=== PATIENT | female | born 1980 | race Caucasian/White ===

== ENCOUNTER → 2017-09-08 | Outpatient (CLI) | payer BC ==
--- NOTE | 2017-09-08 15:14 | NM ---
EXAMINATION TYPE: NM bone scan whole body DATE OF EXAM: 09/08/2017 COMPARISON: NONE HISTORY: Pain in Left Shoulder Delayed whole-body scanning was performed following the injection of 22.4 mCi Tc 99m MDP. Images acq uired 3 hours post injection. FINDINGS: Abnormal uptake involving the left shoulder noted. Abnormal uptake involving the knees and feet noted . IMPRESSION: Abnormal uptake involving the left shoulder could be associated with severe arthritic change. Correla te for trauma. Bone lesion also in the differential diagnosis. X-ray correlation recommended.
== END | disposition home or self-care (01) ==
LOC: RADNMMAIN 10:54
PROVIDERS: ATTEND Internal Medicine
DX: M25.512 Pain in left shoulder (principal)
CPT/HCPCS: 78306; A9503

== ENCOUNTER → 2017-10-01 | Outpatient (CLI) | payer BC ==
--- NOTE | 2017-10-01 23:13 | MR ---
EXAMINATION TYPE: MR shoulder LT wo/w con DATE OF EXAM: 10/01/2017 COMPARISON: NONE HISTORY: Shoulder pain TECHNIQUE: Multiplanar, multisequence images of the left shoulder is performed with 9 mL intravenous gadolinium contrast. FINDINGS: There is mild spurring at the AC joint. The glenohumeral joint is intact. Glenoid tavia appear intact . Subscapularis tendon is intact. Biceps tendon is intact. There is a small amount of fluid around th e biceps tendon. There is minute shoulder joint effusion. The supraspinatus tendon appears intact. Th ere is no retraction. I see no significant subacromial impingement.. IMPRESSION: No evidence of rotator cuff tear. Minute shoulder joint effusion consistent with synovitis. No fractu re. Mild osteoarthritis at the AC joint.
== END | disposition home or self-care (01) ==
LOC: RADMRIMAIN 19:57
PROVIDERS: ATTEND Family Medicine
DX: M19.012 Primary osteoarthritis, left shoulder (principal)
CPT/HCPCS: 73223; A9581

== ENCOUNTER 2018-04-15 16:07 | Emergency (ER) | payer BC ==
[2018-04-15] MEDS ORDERED: FAMOTIDINE 20 MG/2 ML VIAL IV STA (16:41)
[2018-04-15] MEDS ORDERED: diphenhydrAMINE 50 MG/ML 1 ML VIAL IVP STA (16:41)
[2018-04-15] MEDS ORDERED: methylPREDNISolone SOD SUCCI 125 MG/2 ML VIAL IV STA (16:41)
--- NOTE | 2018-04-15 16:52 | ED ---
Allergic Reaction HPI - General Chief complaint: Allergic Reaction Stated complaint: allergic rxn Time Seen by Provider: 04/15/18 16:35 Source: patient, RN notes reviewed Mode of arrival: ambulatory Limitations: no limitations - History of Present Illness Initial Comments: This is a 38-year-old female history of iodine ALLERGIES who was getting a CAT scan today and was premedicated. She had a CT with contrast or chest. She does state that she started developing itching after the contrast was given. The CAT scan was accomplished suicidal here for further evaluation. She has any difficulty breathing or trouble swallowing this severe itching MD Complaint: allergic reaction - Related Data Home Medications Medication Instructions Recorded Confirmed Albuterol Inhaler [Ventolin Hfa 1 - 2 puff INHALATION RT-BID PRN 04/15/18 Inhaler] Budesonide/Formoterol Fumarate 1 - 2 puff INHALATION RT-BID PRN 04/15/18 [Symbicort 80-4.5 Mcg Inhaler] Cholecalciferol [Vitamin D3] 1,000 unit PO DAILY 04/15/18 04/15/18 FLUoxetine HCL [PROzac] 80 mg PO DAILY 04/15/18 04/15/18 LORazepam [Ativan] 2 mg PO DAILY PRN 04/15/18 04/15/18 Letrozole 2.5 mg PO DAILY 04/15/18 04/15/18 Magnesium 200 mg PO DAILY 04/15/18 04/15/18 Methylphenidate HCl [Concerta] 27 mg PO DAILY 04/15/18 04/15/18 Norris-3 Fatty Acids/Fish Oil [Fish 1 cap PO DAILY 04/15/18 04/15/18 Oil 1,000 mg Softgel] predniSONE 50 mg PO QID 04/15/18 04/15/18 Previous Rx's Medication Instructions Recorded predniSONE 20 mg PO BID #10 tab 04/15/18 Allergies Allergy/AdvReac Type Severity Reaction Status Date / Time Iodinated Contrast- Oral and Allergy Unknown Verified 04/15/18 17:19 IV Dye Review of Systems ROS Statement: Those systems with pertinent positive or pertinent negative responses have been documented in the HPI. ROS Other: All systems not noted in ROS Statement are negative. Past Medical History Past Medical History: Cancer Additional Past Medical History / Comment(s): breast cancer History of Any Multi-Drug Resistant Organisms: None Reported Past Surgical History: Breast Surgery, Section, Hysterectomy Past Psychological History: ADD/ADHD, Anxiety, Depression Smoking Status: Never smoker Past Alcohol Use History: Occasional Past Drug Use History: None Reported General Exam - General Exam Comments Initial Comments: This is a well-developed well-nourished awake alert oriented 3 female Limitations: no limitations General appearance: alert, anxious Head exam: Present: atraumatic, normocephalic, normal inspection Eye exam: Present: normal appearance, PERRL, EOMI. Absent: scleral icterus, conjunctival injection, periorbital swelling ENT exam: Present: normal exam, mucous membranes moist Neck exam: Present: normal inspection, full ROM, other (No stridor JVD or bruits ). Absent: tenderness, meningismus, lymphadenopathy Respiratory exam: Present: normal lung sounds bilaterally. Absent: respiratory distress, wheezes, rales, rhonchi, stridor Cardiovascular Exam: Present: regular rate, normal rhythm, normal heart sounds. Absent: systolic murmur, diastolic murmur, rubs, gallop, clicks GI/Abdominal exam: Present: soft, normal bowel sounds. Absent: distended, tenderness, guarding, rebound, rigid Extremities exam: Present: normal inspection, full ROM, normal capillary refill. Absent: tenderness, pedal edema, joint swelling, calf tenderness Back exam: Present: normal inspection Neurological exam: Present: alert, oriented X3, CN II-XII intact Psychiatric exam: Present: normal affect, normal mood Skin exam: Present: warm, dry, intact, erythema (Some erythema seen to the chest wall). Absent: rash Course Vital Signs 04/15/18 16:09 Temperature 98.0 F Pulse Rate 91 Respiratory 18 Rate Blood Pressure 106/65 O2 Sat by Pulse 97 Oximetry Medical Decision Making - Medical Decision Making Patient was reevaluated on several occasions she is progressing well and feeling much improved she will be discharged Disposition Clinical Impression: Allergic reaction, Contrast reaction after premedication Disposition: HOME SELF-CARE Instructions: Urticaria (ED) Prescriptions: predniSONE 20 mg PO BID #10 tab Is patient prescribed a controlled substance at d/c from ED?: No Referrals: García Phillips MD [Primary Care Provider] - 1-2 days
[2018-04-15 18:44] VITALS: BP 125/70; PULSE 69; RESP 16; TEMP 98
== END 2018-04-15 18:43 | disposition home or self-care (01) ==
LOC: EC 16:07
DX: L29.9 Pruritus, unspecified (principal); T50.8X5A Adverse effect of diagnostic agents, initial encounter; Z85.3 Personal history of malignant neoplasm of breast; F90.9 Attention-deficit hyperactivity disorder, unspecified type; F32.9 Major depressive disorder, single episode, unspecified; F41.9 Anxiety disorder, unspecified; Z79.52 Long term (current) use of systemic steroids; Z79.899 Other long term (current) drug therapy; Z91.041 Radiographic dye allergy status
CPT/HCPCS: 96374; 96375; 99283

== ENCOUNTER → 2018-04-15 | Outpatient (CLI) | payer BC ==
--- NOTE | 2018-04-15 16:32 | CT ---
EXAMINATION TYPE: CT chest w con DATE OF EXAM: 04/15/2018 COMPARISON: None HISTORY: 38-year-old female Cough, personal history of left breast cancer TECHNIQUE: Contiguous axial scanning of the chest after the administration of 100 mL of Isovue 300. Coronal/sagittal reconstructions performed. CT DLP: 657mGycm. Automatic exposure control utilized for a dose reduction. FINDINGS: There appear to be bilateral breast reconstructions. Additional surgical clips at the left axilla fro m axillary node dissection. Heart normal size without pericardial effusion. Aorta normal caliber with conventional arch vessel branching anatomy. No thoracic lymphadenopathy. No consolidation or pleural effusion. No suspicious pulmonary nodule or mass. Small hiatal hernia. Subcentimeter hypodensity right hepatic dome too small for accurate CT character ization, most likely a cyst. Bones: No osseous destructive process. Normal variant sternal foramina. IMPRESSION: 1. Prior bilateral breast reconstructions and left axillary node dissection. 2. No acute pulmonary process. 3. Small hiatal hernia.
== END | disposition home or self-care (01) ==
LOC: RADCTMAIN 15:18
PROVIDERS: ATTEND Internal Medicine
DX: Z08 Encounter for follow-up examination after completed treatment for malignant neoplasm (principal); Z98.890 Other specified postprocedural states; Z85.3 Personal history of malignant neoplasm of breast
CPT/HCPCS: 71260; Q9967

== ENCOUNTER → 2021-04-04 | Outpatient (CLI) | payer BC ==
--- NOTE | 2021-04-05 07:41 | CT ---
EXAMINATION TYPE: CT abdomen pelvis wo con DATE OF EXAM: 04/04/2021 HISTORY: Abdominal pain, hx breast ca CT DLP: 982 mGycm. Automated Exposure Control for Dose Reduction was Utilized. TECHNIQUE: CT scan of the abdomen and pelvis is performed without oral or IV contrast. COMPARISON: NONE FINDINGS: Within the limitations of a non-contrast study, the following observations are made. LUNG BASES: No significant abnormality is appreciated. LIVER/GB: Nonspecific 3.5 x 2.7 cm hypodense lesion peripheral right hepatic lobe axial image 29 hour s follow-up.. PANCREAS: No significant abnormality is seen. SPLEEN: No significant abnormality is seen. ADRENALS: No significant abnormality is seen. KIDNEYS: There are 2 adjacent calculi in the left kidney lower pole collecting system coronal image 5 3 measuring up to 5 mm in size. Slightly prominent bilateral renal pelvises without calyceal dilatati on consistent with extrarenal pelvises. Mildly distended bladder without intraluminal calculi. BOWEL: No suspicious small or large bowel dilatation. GENITAL ORGANS: Anteverted uterus. Grouped left-sided pelvic phleboliths LYMPH NODES: No greater than 1cm abdominal or pelvic lymph nodes are appreciated. OSSEOUS STRUCTURES: No significant abnormality is seen. OTHER: Surgical clips over the rectus muscles bilaterally extending deep to the muscles noted. Findin gs are presumed product of prior "tummy tuck" procedure. Tiny fat-containing umbilical hernia. IMPRESSION: 1. There are 2 nonobstructing lower pole left renal calculi within the lower pole renal pelvis. No hy dronephrosis or obstructing ureteral calculi. 2. No acute findings are evident. 3. Nonspecific 3.5 cm peripheral right hepatic lobe lesion. Solid liver mass cannot be excluded. Furt her investigation with liver protocol contrast-enhanced CT or MRI is advised. 3.
== END | disposition home or self-care (01) ==
LOC: RADCTMAIN 17:26
PROVIDERS: ATTEND Family Medicine
DX: N20.0 Calculus of kidney (principal); K76.9 Liver disease, unspecified; Z85.3 Personal history of malignant neoplasm of breast
CPT/HCPCS: 74176

== ENCOUNTER → 2021-04-17 | Outpatient (CLI) | payer BC ==
--- NOTE | 2021-04-17 22:26 | CT ---
EXAMINATION TYPE: CT abdomen w con DATE OF EXAM: 04/17/2021 COMPARISON: 04/04/2021, CT chest 04/15/2018. INDICATION: h/o liver neoplasm DLP: 1670.7 mGycm, Automated exposure control for dose reduction was used. CONTRAST: 100 mL of Isovue 300. Study performed with Oral Contrast TECHNIQUE: Axial images were obtained from above the diaphragm to the pubic rami in the axial plane a t 5 mm thick sections. Reconstructed images are reviewed on the computer in the coronal plane. FINDINGS: Limited CT sections are obtained the lung bases. The lung bases are clear. CT ABDOMEN: Liver: There is an indistinct lesion within the lateral right lobe of the liver this is less well del ineated than on the noncontrast study. Best estimate of size is 3.1 x 2.2 cm. Previous measurement of 3.5 x 2.7 cm. On delayed images there is only a small hypodense area ill-defined remaining. Hemangio ma could be considered within the differential. Correlation with ultrasound is recommended. MRI with contrast may be more sensitive for delineation and characterization of this lesion. Previous hypodens e lesion within the more superior right lobe liver is not identified on the current exam Spleen: Normal Pancreas: Normal Adrenal glands: The adrenal glands are normal. Gallbladder: Normal Kidneys: No masses are evident. No hydronephrosis is present. No cysts are present. There is a non obstructing renal stone within the mid to inferior pole left kidney measuring 0.4 cm. Delayed images to the kidneys were obtained. No additional findings. Aorta: Normal Inferior vena cava: Normal. Bowel: Loops of bowel with oral contrast. Unremarkable. Debris is within the stomach. IMPRESSIONS: 1. Ill-defined hepatic lesion within the mid right lobe liver periphery is less evident on contrast imaging and becomes more homogenous with the liver with delayed contrast. Hemangioma is within the di fferential. Correlation with ultrasound is recommended. MRI with contrast may be required for better delineation.
== END | disposition home or self-care (01) ==
LOC: RADCTMAIN 17:43
PROVIDERS: ATTEND Internal Medicine Medical Oncology
DX: K76.9 Liver disease, unspecified (principal); Z85.05 Personal history of malignant neoplasm of liver
CPT/HCPCS: 74160; Q9967

== ENCOUNTER → 2021-04-20 | Outpatient (CLI) | payer BC ==
--- NOTE | 2021-04-20 16:07 | US ---
EXAMINATION TYPE: US liver DATE OF EXAM: 04/20/2021 COMPARISON: CT 2020 CLINICAL HISTORY: D18.02 Hemangioma. Liver lesion seen on recent CT EXAM MEASUREMENTS: Liver Length: 15.4 cm Gallbladder Wall: 0.2 cm CBD: 0.3 cm Right Kidney: 10.5 x 4.6 x 4.2 cm Pancreas: visualized portion wnl, limited by overlying midline bowel gas Liver: 3.2 x 2.7 x 3.8cm hypoechoic area right lobe. This area corresponds to the CT findings findin gs are atypical for a hemangioma. Other etiologies should be considered. Gallbladder: wnl Evidence for sonographic Clement's sign: no CBD: wnl Right Kidney: wnl IMPRESSION: 1. Slightly irregular slightly hypoechoic mass within the right lobe liver. Additional workup is kat mmended. Findings are atypical for hemangioma, other etiologies including neoplasm should be consider ed
== END | disposition home or self-care (01) ==
LOC: RADUSWWP 14:57
PROVIDERS: ATTEND Internal Medicine Medical Oncology
DX: R16.0 Hepatomegaly, not elsewhere classified (principal); D18.03 Hemangioma of intra-abdominal structures
CPT/HCPCS: 76705

== ENCOUNTER → 2022-10-08 | Outpatient (CLI) | payer BC ==
--- NOTE | 2022-10-08 13:12 | US ---
EXAMINATION TYPE: US venous doppler duplex LE LT DATE OF EXAM: 10/08/2022 1:05 PM COMPARISON: NONE CLINICAL HISTORY: LLE M79.662. Hx DVT right leg. Patient is on chemotherapy. Stage 4 breast cancer. P ain left calf x 4 days. SIDE PERFORMED: Left TECHNIQUE: The lower extremity deep venous system is examined utilizing real time linear array sonog marii with graded compression, doppler sonography and color-flow sonography. VESSELS IMAGED: Common Femoral Vein Deep Femoral Vein Greater Saphenous Vein * Femoral Vein Popliteal Vein Small Saphenous Vein * Proximal Calf Veins (* superficial vessels) Left Leg: Internal echoes seen in noncompressible superficial vessels within the posterior upper-m id calf at patient's area of pain/concern. Lack of color flow within these vessels. No evidence of DVT. IMPRESSION: 1. No ultrasound evidence of deep venous thrombosis left lower extremity. 2. Note is made of superficial venous thrombosis within the upper calf.
== END | disposition home or self-care (01) ==
LOC: RADUSWWP 12:14
PROVIDERS: ATTEND Family Medicine
DX: C50.912 Malignant neoplasm of unspecified site of left female breast (principal); I82.812 Embolism and thrombosis of superficial veins of left lower extremity

== ENCOUNTER 2023-09-07 14:15 | Inpatient (IN) | payer BC ==
--- NOTE | 2023-09-07 15:50 | ED ---
General Adult HPI - General Chief complaint: Fever Stated complaint: fever/rash-cancer pt Time Seen by Provider: 09/07/23 15:11 Source: patient, RN notes reviewed Mode of arrival: ambulatory Limitations: no limitations - History of Present Illness Initial comments: 43-year-old female presents to the emergency department for evaluation of fever today. She states that she took her temperature and it was 100.3. She also notes a painful rash to her left cheek. She states that this started today as well. She has a history of breast cancer and is receiving chemotherapy. Last chemo on . She follows at [facility]. No other significant past medical history. - Related Data Home Medications Medication Instructions Recorded Confirmed Apixaban [Eliquis] 5 mg PO BID 09/07/23 09/07/23 Dicyclomine [Bentyl] 20 mg PO Q8H PRN 09/07/23 09/07/23 FLUoxetine HCL [Fluoxetine HCl] 60 mg PO HS 09/07/23 09/07/23 HYDROmorphone [Dilaudid] 4 mg PO Q4H 09/07/23 09/07/23 LORazepam [Ativan] 0.5 mg PO TID 09/07/23 09/07/23 OLANZapine [ZyPREXA] 5 mg PO HS 09/07/23 09/07/23 Ondansetron Odt [Zofran Odt] 8 mg PO Q6H PRN 09/07/23 09/07/23 Temazepam 22.5 mg PO HS 09/07/23 09/07/23 fentaNYL 25MCG/HR PATCH [Duragesic 1 patch TRANSDERM Q72H 09/07/23 09/07/23 25MCG/HR] Allergies Allergy/AdvReac Type Severity Reaction Status Date / Time alpelisib [From Piqray] Allergy Rash/Hives Verified 09/07/23 19:51 Iodinated Contrast Media Allergy Unknown Verified 09/07/23 19:51 [Iodinated Contrast- Oral and IV Dye] Review of Systems ROS Statement: Those systems with pertinent positive or pertinent negative responses have been documented in the HPI. ROS Other: All systems not noted in ROS Statement are negative. Past Medical History Past Medical History: Cancer Additional Past Medical History / Comment(s): breast cancer History of Any Multi-Drug Resistant Organisms: None Reported Past Surgical History: Breast Surgery, Section, Hysterectomy Past Psychological History: ADD/ADHD, Anxiety, Depression Smoking Status: Never smoker Past Alcohol Use History: Occasional Past Drug Use History: None Reported General Exam Limitations: no limitations General appearance: alert, in no apparent distress Head exam: Present: atraumatic, normocephalic, normal inspection Eye exam: Present: normal appearance, PERRL, EOMI. Absent: scleral icterus, conjunctival injection, periorbital swelling ENT exam: Present: normal exam, mucous membranes moist, TM's normal bilaterally, normal external ear exam Neck exam: Present: normal inspection. Absent: tenderness, meningismus, lymphadenopathy Respiratory exam: Present: normal lung sounds bilaterally. Absent: respiratory distress, wheezes, rales, rhonchi, stridor Cardiovascular Exam: Present: regular rate, normal rhythm, normal heart sounds. Absent: systolic murmur, diastolic murmur, rubs, gallop, clicks Extremities exam: Present: normal inspection, full ROM, normal capillary refill. Absent: tenderness, pedal edema, joint swelling, calf tenderness Neurological exam: Present: alert, oriented X3 Psychiatric exam: Present: normal affect, normal mood Skin exam: Present: warm, dry, intact, erythema (Erythema to left cheek with tenderness) Course Vital Signs 09/07/23 09/07/23 09/07/23 14:29 16:57 18:17 Temperature 98.9 F 99.2 F 98.7 F Pulse Rate 91 89 87 Pulse Rate [ Left] Respiratory 20 18 18 Rate Blood Pressure 112/66 108/71 117/78 Blood Pressure [Left Arm] O2 Sat by Pulse 95 100 99 Oximetry 09/08/23 02:00 Temperature 98.2 F Pulse Rate Pulse Rate [ 69 Left] Respiratory 18 Rate Blood Pressure Blood Pressure 114/65 [Left Arm] O2 Sat by Pulse 98 Oximetry Medical Decision Making - Medical Decision Making Was pt. sent in by a medical professional or institution (, PA, STAMPER BLOCKER, urgent care, hospital, or snf...) When possible be specific @ -No Did you speak to anyone other than the patient for history (EMS, parent, family, police, friend...)? What history was obtained from this source @ -No Did you review nursing and triage notes (agree or disagree)? Why? @ -I reviewed and agree with nursing and triage notes Were old charts reviewed (outside hosp., previous admission, EMS record, old EKG, old radiological studies, urgent care reports/EKG's, snf records)? Report findings @ -No old charts were reviewed Differential Diagnosis (chest pain, altered mental status, abdominal pain women, abdominal pain men, vaginal bleeding, weakness, fever, dyspnea, syncope, headache, dizziness, GI bleed, back pain, seizure, CVA, palpatations, mental health, musculoskeletal)? @ -Differential Fever: Pneumonia, viral URI, endocarditis, myocarditis, pericarditis, otitis, sinusitis, peritonsillar Abscess, retropharyngeal Abscess, epiglottitis, peritonitis, appendicitis, Celeste cystitis, diverticulitis, hepatitis, colitis, UTI, PID, TOA, pyelonephritis, prostatitis, epididymitis, meningitis, encephalit is, pulmonary embolism, CVA, thyroid storm, pancreatitis, adrenal crisis, cavernous sinus thrombosis, this is not meant to be an all-inclusive list. EKG interpreted by me (3pts min.). @ -None X-rays interpreted by me (1pt min.). @ -None done CT interpreted by me (1pt min.). @ -None done U/S interpreted by me (1pt. min.). @ -None done What testing was considered but not performed or refused? (CT, X-rays, U/S, labs)? Why? @ -None What meds were considered but not given or refused? Why? @ -None Did you discuss the management of the patient with other professionals (professionals i.e. , PA, STAMPER BLOCKER, lab, RT, psych nurse, social director, director clinical operations, teacher, prison officer, foster care case manager)? Give summary @ -Case discussed with Dr. Keys who is accepting of the admission. Was smoking cessation discussed for >3mins.? @ -No Was critical care preformed (if so, how long)? @ -No Were there social determinants of health that impacted care today? How? (Homelessness, low income, unemployed, alcoholism, drug addiction, transportation, low edu. Level, literacy, decrease access to med. care, [facility], r ehab)? @ -No Was there de-escalation of care discussed even if they declined (Discuss DNR or withdrawal of care, Hospice)? DNR status @ -No What co-morbidities impacted this encounter? (DM, HTN, Smoking, COPD, CAD, Cancer, CVA, ARF, Chemo, Hep., AIDS, mental health diagnosis, sleep apnea, morbid obesity)? @ -None Was patient admitted / discharged? Hospital course, mention meds given and route, prescriptions, significant lab abnormalities, going to OR and other pertinent info. @ -Admitted for observation. Patient presented to the emergency department for evaluation of fever and left-sided face erythema and tenderness. The symptoms started today. She is currently undergoing chemo for metastatic breast cancer. Laboratory studies including blood cultures which are pending. CBC shows mild leukocytosis of 13.1. Transaminitis which the patient states is chronic. UA shows negative nitrate, negative leukocyte esterase. COVID, influenza, RSV negative. Patient will be treated with IV vancomycin and cefepime for possible cellulitis of the face. Patient will be admitted for observation and IV antibiotics. Case was discussed with Dr. Keys who is accepting of the admission. Case discussed with my attending, Dr. Mckenna Undiagnosed new problem with uncertain prognosis? @ -No Drug Therapy requiring intensive monitoring for toxicity (Heparin, Nitro, Insulin, Cardizem)? @ -No Were any procedures done? @ -No Diagnosis/symptom? @ -Cellulitis Acute, or Chronic, or Acute on Chronic? @ -Acute Uncomplicated (without systemic symptoms) or Complicated (systemic symptoms)? @ -Uncomplicated Side effects of treatment? @ -No Exacerbation, Progression, or Severe Exacerbation? @ -No Poses a threat to life or bodily function? How? (Chest pain, [place], [place], pneumonia, PE, COPD, DKA, ARF, appy, cholecystitis, CVA, Diverticulitis, Homicidal, Suicidal, threat to staff... and all critical care pts) @ -No - Lab Data Result diagrams: 09/07/23 15:56 09/08/23 06:46 Lab Results 09/07/23 09/07/23 09/07/23 Range/Units 15:56 15:56 15:56 WBC 13.1 H (3.8-10.6) k/uL RBC 4.07 (3.80-5.40) m/uL Hgb 12.1 (11.4-16.0) gm/dL Hct 38.0 (34.0-46.0) % MCV 93.3 (80.0-100.0) fL MCH 29.8 (25.0-35.0) pg MCHC 32.0 (31.0-37.0) g/dL RDW 14.8 (11.5-15.5) % Plt Count 206 (150-450) k/uL MPV 7.2 Neutrophils % 93 % Lymphocytes % 6 % Monocytes % 1 % Eosinophils % 0 % Basophils % 0 % Neutrophils # 12.1 H (1.3-7.7) k/uL Lymphocytes # 0.7 L (1.0-4.8) k/uL Monocytes # 0.2 (0-1.0) k/uL Eosinophils # 0.0 (0-0.7) k/uL Basophils # 0.0 (0-0.2) k/uL Hypochromasia Slight Sodium 136 L (137-145) mmol/L Potassium 4.9 (3.5-5.1) mmol/L Chloride 105 (98-107) mmol/L Carbon Dioxide 25 (22-30) mmol/L Anion Gap 6 mmol/L BUN 14 (7-17) mg/dL Creatinine 0.54 (0.52-1.04) mg/dL Est GFR (CKD-EPI)AfAm >90 (>60 ml/min/1.73 sqM) Est GFR (CKD-EPI)NonAf >90 (>60 ml/min/1.73 sqM) Glucose 113 H (74-99) mg/dL Plasma Lactic Acid Cecilio (0.7-2.0) mmol/L Calcium 8.6 (8.4-10.2) mg/dL Total Bilirubin 0.8 (0.2-1.3) mg/dL AST 186 H (14-36) U/L ALT 111 H (4-34) U/L Alkaline Phosphatase 138 H (38-126) U/L Total Protein 6.0 L (6.3-8.2) g/dL Albumin 3.9 (3.5-5.0) g/dL Urine Color Colorless Urine Appearance Clear (Clear) Urine pH 8.0 (5.0-8.0) Ur Specific Fallon 1.008 (1.001-1.035) Urine Protein Negative (Negative) Urine Glucose (UA) Negative (Negative) Urine Ketones Negative (Negative) Urine Blood Negative (Negative) Urine Nitrite Negative (Negative) Urine Bilirubin Negative (Negative) Urine Urobilinogen <2.0 (<2.0) mg/dL Ur Leukocyte Esterase Negative (Negative) Influenza Type A (PCR) (Not Detectd) Influenza Type B (PCR) (Not Detectd) RSV (PCR) (Not Detectd) SARS-CoV-2 (PCR) (Not Detectd) 09/07/23 09/07/23 Range/Units 15:56 15:56 WBC (3.8-10.6) k/uL RBC (3.80-5.40) m/uL Hgb (11.4-16.0) gm/dL Hct (34.0-46.0) % MCV (80.0-100.0) fL MCH (25.0-35.0) pg MCHC (31.0-37.0) g/dL RDW (11.5-15.5) % Plt Count (150-450) k/uL MPV Neutrophils % % Lymphocytes % % Monocytes % % Eosinophils % % Basophils % % Neutrophils # (1.3-7.7) k/uL Lymphocytes # (1.0-4.8) k/uL Monocytes # (0-1.0) k/uL Eosinophils # (0-0.7) k/uL Basophils # (0-0.2) k/uL Hypochromasia Sodium (137-145) mmol/L Potassium (3.5-5.1) mmol/L Chloride (98-107) mmol/L Carbon Dioxide (22-30) mmol/L Anion Gap mmol/L BUN (7-17) mg/dL Creatinine (0.52-1.04) mg/dL Est GFR (CKD-EPI)AfAm (>60 ml/min/1.73 sqM) Est GFR (CKD-EPI)NonAf (>60 ml/min/1.73 sqM) Glucose (74-99) mg/dL Plasma Lactic Acid Cecilio 1.3 (0.7-2.0) mmol/L Calcium (8.4-10.2) mg/dL Total Bilirubin (0.2-1.3) mg/dL AST (14-36) U/L ALT (4-34) U/L Alkaline Phosphatase (38-126) U/L Total Protein (6.3-8.2) g/dL Albumin (3.5-5.0) g/dL Urine Color Urine Appearance (Clear) Urine pH (5.0-8.0) Ur Specific Fallon (1.001-1.035) Urine Protein (Negative) Urine Glucose (UA) (Negative) Urine Ketones (Negative) Urine Blood (Negative) Urine Nitrite (Negative) Urine Bilirubin (Negative) Urine Urobilinogen (<2.0) mg/dL Ur Leukocyte Esterase (Negative) Influenza Type A (PCR) Not Detected (Not Detectd) Influenza Type B (PCR) Not Detected (Not Detectd) RSV (PCR) Not Detected (Not Detectd) SARS-CoV-2 (PCR) Not Detected (Not Detectd) Disposition Clinical Impression: Cellulitis, Fever Disposition: ADMITTED IP TO THIS [facility] Condition: Stable Is patient prescribed a controlled substance at d/c from ED?: No
[2023-09-07 16:18] LABS: Basophils % (A) 0 %; Eosinophils % (A) 0 %; HGB 12.1 gm/dL (11.4-16.0); Hypochromasia Slight; Lymphocytes # (A) 0.7 k/uL (1.0-4.8); Lymphocytes % (A) 6 %; MCH 29.8 pg (25.0-35.0); MCV 93.3 fL (80.0-100.0); Mean Platelet Volume 7.2; Monocytes # (A) 0.2 k/uL (0-1.0); Monocytes % (A) 1 %; Neutrophils # (A) 12.1 k/uL (1.3-7.7); Neutrophils % (A) 93 %; Platelet Count 206 k/uL (150-450); RBC 4.07 m/uL (3.80-5.40); RDW 14.8 % (11.5-15.5); WBC 13.1 k/uL (3.8-10.6)
[2023-09-07 16:28] LABS: ALT 111 U/L (4-34); AST 186 U/L (14-36); African American GFR (CKD) >90 (>60 ml/min/1.73 sqM); Albumin 3.9 g/dL (3.5-5.0); Alkaline Phosphatase 138 U/L (38-126); Anion Gap 6 mmol/L; Blood Urea Nitrogen 14 mg/dL (7-17); Calcium 8.6 mg/dL (8.4-10.2); Carbon Dioxide 25 mmol/L (22-30); Chloride 105 mmol/L (98-107); Glucose 113 mg/dL (74-99); Non-African American GFR(CKD) >90 (>60 ml/min/1.73 sqM); Potassium 4.9 mmol/L (3.5-5.1); Sodium 136 mmol/L (137-145); Total Bilirubin 0.8 mg/dL (0.2-1.3)
--- NOTE | 2023-09-07 16:57 | XR ---
EXAMINATION TYPE: XR chest 2V DATE OF EXAM: 09/07/2023 3:58 PM CLINICAL INDICATION:Female, 43 years old with history of fever; PHH COMPARISON: None TECHNIQUE: XR chest 2V Frontal and lateral views of the chest. FINDINGS: Lungs/Pleura: There is no evidence of pleural effusion, focal consolidation, or pneumothorax. Pulmonary vascularity: Unremarkable. Heart/mediastinum: Cardiomediastinal silhouette is unremarkable. Musculoskeletal: No acute osseous pathology. Other findings: None Lines/Tubes: [id number] projecting over the right hemithorax with distal tip projecting over the superior vena cava. IMPRESSION: No acute cardiopulmonary disease/process.
[2023-09-07 17:55] LABS: Appearance,Urine Clear (Clear); Bilirubin,Urine Negative (Negative); Blood,Urine Negative (Negative); Color,Urine Colorless; Glucose,Urine (UA) Negative (Negative); Ketones,Urine Negative (Negative); Leukocyte Esterase,Urine Negative (Negative); Nitrite,Urine Negative (Negative); Protein,Urine Negative (Negative); Specific Gravity,Urine 1.008 (1.001-1.035); Urobilinogen,Urine <2.0 mg/dL (<2.0)
[2023-09-07] MEDS ORDERED: VANCOMYCIN IV PER PHARMACY 1 EACH MISC MISCELLANE PRN (18:07)
[2023-09-07] MEDS: CEFEPIME 1 GM in SODIUM CHLORIDE 0.9% 50 ML IVPB STA (18:33)
[2023-09-07] MEDS ORDERED: VANCOMYCIN 1,500 MG in SODIUM CHLORIDE 0.9% 500 ML 500 ML IVPB SCH (18:34)
[2023-09-07] MEDS: SODIUM CHLORIDE 0.9% 1,000 ML IV SCH (18:38)
[2023-09-07] MEDS: VANCOMYCIN 1,500 MG in SODIUM CHLORIDE 0.9% 500 ML 500 ML IVPB SCH ×2 (19:09→19:18)
[2023-09-07] MEDS ORDERED: NALOXONE 0.4 MG/ML 1 ML VIAL IV PRN (19:41)
[2023-09-07] MEDS ORDERED: IBUPROFEN 400 MG TAB PO PRN (19:46)
[2023-09-08] MEDS: diphenhydrAMINE 50 MG/ML 1 ML VIAL IVP STA (01:58)
--- NOTE | 2023-09-08 02:37 | P.HPIM ---
History of Present Illness H&P Date: 09/07/23 Chief Complaint: Fever 43-year-old female with metastatic breast cancer She is coming in for evaluation of the fever today she reports that her temperature was 100.3 she also reports having a painful rash that started yesterday over her left side of the face she is not sure what caused it or trigger it. Denies any injuries or traumas to the face. She denies experiencing anything like this before she denies any coughing chest pain trouble breathing denies any runny nose or sore throat denies any abdominal pain nausea or vomiting denies any changes in her bowel movements or urinary habits She was diagnosed with metastatic breast cancer about 2 years ago she continues to be on chemotherapy her last session was few days ago review of systems Pertinent positives as noted in HPI. All other systems were reviewed and are negative on exam Constitutional: No acute distress, conversant Eyes: Anicteric sclerae, moist conjunctiva, Pupils equal round reactive to light ENMT: NC/AT Oropharynx clear, no erythema, or exudates Neck: Supple, no masses, or JVD No carotid bruits No thyromegaly Lungs: Clear to auscultation Clear to percussion Normal respiratory effort, no accessory muscle use Cardiovascular: Heart regular in rate and rhythm, No murmurs, gallops, or rubs No peripheral edema Abdominal: Soft Nontender, no guarding, rebound or rigidity Abdomen moving with respiration Normoactive bowel sounds Skin: Erythema involving the left side of the face over the sabianist zygomatic arch and left cheek warm to the touch and tender, no induration no drainage no open wounds Extremities: No digital cyanosis No clubbing Pedal pulses intact and symmetrical Radial pulses intact and symmetrical No calf tenderness Psychiatric: Alert and oriented to person, place and time Appropriate affect fair judgement Neuro Muscles Strength 5/5 in all 4 extremities Sensation to light touch grossly present throughout Cranial nerves II-XII grossly intact Past Medical History Past Medical History: Cancer Additional Past Medical History / Comment(s): breast cancer History of Any Multi-Drug Resistant Organisms: None Reported Past Surgical History: Breast Surgery, Section, Hysterectomy Additional Past Surgical History / Comment(s): double mastectomy Past Psychological History: ADD/ADHD, Anxiety, Depression Smoking Status: Never smoker Past Alcohol Use History: Occasional Past Drug Use History: None Reported Medications and Allergies Home Medications Medication Instructions Recorded Confirmed Type Apixaban [Eliquis] 5 mg PO BID 09/07/23 09/07/23 History Dicyclomine [Bentyl] 20 mg PO Q8H PRN 09/07/23 09/07/23 History FLUoxetine HCL [Fluoxetine HCl] 60 mg PO HS 09/07/23 09/07/23 History HYDROmorphone [Dilaudid] 4 mg PO Q4H 09/07/23 09/07/23 History LORazepam [Ativan] 0.5 mg PO TID 09/07/23 09/07/23 History OLANZapine [ZyPREXA] 5 mg PO HS 09/07/23 09/07/23 History Ondansetron Odt [Zofran Odt] 8 mg PO Q6H PRN 09/07/23 09/07/23 History Temazepam 22.5 mg PO HS 09/07/23 09/07/23 History fentaNYL 25MCG/HR PATCH [Duragesic 1 patch TRANSDERM Q72H 09/07/23 09/07/23 History 25MCG/HR] Allergies Allergy/AdvReac Type Severity Reaction Status Date / Time alpelisib [From Piqray] Allergy Rash/Hives Verified 09/07/23 19:51 Iodinated Contrast Media Allergy Unknown Verified 09/07/23 19:51 [Iodinated Contrast- Oral and IV Dye] Physical Exam Vitals: Vital Signs Temp Pulse Pulse Resp BP BP Pulse Ox 09/08/23 02:00 98.2 F 69 18 114/65 98 09/07/23 18:17 98.7 F 87 18 117/78 99 09/07/23 16:57 99.2 F 89 18 108/71 100 09/07/23 14:29 98.9 F 91 20 112/66 95 Intake and Output 09/07/23 09/07/23 09/08/23 14:59 22:59 06:59 Other: Weight 97.522 kg 97.522 kg Results CBC & Chem 7: 09/07/23 15:56 09/07/23 15:56 Labs: Abnormal Lab Results - Last 24 Hours (Table) 09/07/23 09/07/23 Range/Units 15:56 15:56 WBC 13.1 H (3.8-10.6) k/uL Neutrophils # 12.1 H (1.3-7.7) k/uL Lymphocytes # 0.7 L (1.0-4.8) k/uL Sodium 136 L (137-145) mmol/L Glucose 113 H (74-99) mg/dL AST 186 H (14-36) U/L ALT 111 H (4-34) U/L Alkaline Phosphatase 138 H (38-126) U/L Total Protein 6.0 L (6.3-8.2) g/dL Assessment and Plan Assessment: 43-year-old female with metastatic breast cancer currently on chemotherapy coming in for 1 to 2-day history of a fever and left-sided face rash I discussed case with ED doctor accepted the admission for suspected erysipelas of the left side of the face with anticipated length of stay less than 2 midnights Sepsis with suspected underlying left-sided facial erysipelas (white count 13.1, tachycardia) Follow-up cultures Patient started on vancomycin dosing by pharmacy Cefepime 2 g IV piggyback every 8 hours Tylenol as needed for fever Continue with home medications pain control with Dilaudid 4 mg pills p.o. as needed Acute respiratory viral panel negative for COVID RSV and influenza Metastatic breast cancer currently on chemotherapy Continue outpatient follow-up Blood work showing Hemoglobin 12.1 patient denies any bleeding Sodium 136 potassium 4.9 BUN 14 creatinine 0.5 Transaminitis Patient reports chronic elevated liver enzymes due to metastasis AST 182 ALT 111 Alk phos 138 Full code DVT prophylaxis on Eliquis for history of DVT
[2023-09-08] MEDS: HYDROmorphone 2 MG TAB PO SCH (02:44)
[2023-09-08] MEDS: APIXABAN 5 MG TAB PO SCH (02:44)
[2023-09-08] MEDS: LORazepam 0.5 MG TAB PO PRN (02:44)
[2023-09-08] MEDS: FLUoxetine HCL 20 MG CAP PO SCH (02:44)
[2023-09-08] MEDS: TEMAZEPAM 7.5 MG CAP PO SCH (02:44)
[2023-09-08 08:51] LABS: African American GFR (CKD) >90 (>60 ml/min/1.73 sqM); Non-African American GFR(CKD) >90 (>60 ml/min/1.73 sqM)
[2023-09-08] MEDS: CEFEPIME 1 GM in SODIUM CHLORIDE 0.9% 50 ML IVPB SCH (09:10)
[2023-09-08] MEDS: VANCOMYCIN 1,500 MG in SODIUM CHLORIDE 0.9% 500 ML 500 ML IVPB SCH (11:55)
[2023-09-08] MEDS: ACETAMINOPHEN TAB 325 MG TAB PO PRN (15:32)
--- NOTE | 2023-09-08 15:50 | P.PN ---
Subjective Progress Note Date: 09/08/23 Hospital course: Patient is a very pleasant 43-year-old female with a past medical history of metastatic breast cancer currently undergoing chemotherapy with last treatment being 09/04/2023. She presented to the emergency department with a chief complaint of fever of 100.3 F and painful rash to the left side of her face. She underwent full evaluation in the emergency department. Upon arrival vital signs show blood pressure 112/66, heart rate 91, respiratory rate 20, temp 98.9 F, SpO2 of 95% on room air. Labs completed and reviewed. CBC showing leukocytosis with WBC count of 13.1. BMP unremarkable. Lactic acid normal findings at 1.3. Liver profile showing transaminitis with AST of 186, ALT of 111, and alkaline phosphatase of 138. Urinalysis negative for infection. Influenza A, influenza B, RSV, and COVID PCR were negative. Chest x-ray completed negative for acute cardiopulmonary process. Patient admitted under our services with consultation to oncology and infectious disease. Physical exam: Patient seen and fully evaluated at bedside this morning. She was resting comfortably. Reports continued irritation to left side of face from rash, otherwise denies any complaints at this time. Vital signs reviewed and stable. General: Nontoxic, no distress and appears stated age. Derm: Skin warm and dry, normal coloration for ethnicity. Moderately erythemic rash involving the left side of the face over the gnosticism zygomatic arch and entire left cheek warm to the touch and tender, no induration, no drainage, and no open wounds Head: Atraumatic, normocephalic and symmetric. Eyes: EOMs intact, no lid lag, and anicteric sclera Mouth: no lip lesions, mucus membranes moist Cardiovascular: regular rate and rhythm with normal S1S2, no murmur, positive posterior tibial pulses bilaterally, and cap refill < 2 seconds. Right-sided [id number]. Lungs: Respirations even, regular, and unlabored on room air. Lungs CTA bilaterally, no rhonchi, no rales, no wheezing, and no accessory muscle usage. Abdominal: soft, nontender to palpation, no guarding, no appreciable organomegaly Ext: ROM intact. No gross muscle atrophy, no edema, no contractures Neuro: Speech clear, face symmetrical and CN II-XII grossly intact with no noted focal neuro deficits Psych: Alert and oriented to person, place, time, and situation. Appropriate and pleasant affect. Assessment and Plan of Care: 43-year-old female with metastatic breast cancer currently on chemotherapy coming in for 1 to 2-day history of a fever and left-sided face rash. Sepsis with suspected underlying left-sided facial erysipelas (white count 13.1, heart rate 91, blood pressure 99/60 and fever reported prior to arrival of 100.3 F) -Follow-up on blood cultures. -Continue IV antibiotics with vancomycin 1500 mg every 8 hours and cefepime 2 g IVPB every 8 hours. Monitor renal function and vancomycin trough closely for any signs of vancomycin associated renal toxicity. -Continue Tylenol 650 mg every 6 hours as needed for fever, temperature high over the past 24 hours is 99.2 F. -Continue with home medications pain control with Dilaudid 4 mg pills p.o. as needed -Infectious disease consulted. Metastatic breast cancer currently on chemotherapy -Oncology consulted. Appreciate recommendations. Transaminitis, likely secondary to metastasis -Patient reports chronic elevated liver enzymes due to metastasis -Liver profile revealing AST 182, ALT 111, and alkaline phosphatase of 138. Data and imaging reviewed: Vital signs reviewed. Blood pressure 99/60, heart rate 85, respiratory rate 16, temp 98.4 F, and SpO2 of 94% on room air. Labs reviewed. CBC showing leukocytosis with WBC count of 13.1. BMP normal findings. Lactic acid 1.3. Liver profile revealing AST 182, ALT 111, and alkaline phosphatase of 138. CODE STATUS: Full code DVT prophylaxis: Eliquis Anticipated discharge date: Clinical course to determine Anticipated discharge place: Clinical course to determine Patient was seen independently by Nurse Pracitioner. This document was prepared using [employer] dictation software. Please allow for errors in medical delivery driver, while rare they do occur. This patient was seen independently by my colleague Karthikeyan MOSCOSO. I agree with the assessment and plan. Objective - Vital Signs Vital signs: Vital Signs Temp 98.4 F 09/08/23 08:00 Pulse 85 09/08/23 08:00 Resp 16 09/08/23 08:00 BP 99/60 09/08/23 08:00 Pulse Ox 94 L 09/08/23 08:00 FiO2 Intake & Output 09/07/23 09/08/23 09/08/23 18:59 06:59 18:59 Weight 97.522 kg 97.522 kg Other: Voiding Method Toilet # Voids 1 - Labs CBC & Chem 7: 09/09/23 05:39 09/09/23 05:39 Labs: Abnormal Lab Results - Last 24 Hours (Table) 09/07/23 09/07/23 09/08/23 Range/Units 15:56 15:56 06:46 WBC 13.1 H (3.8-10.6) k/uL Neutrophils # 12.1 H (1.3-7.7) k/uL Lymphocytes # 0.7 L (1.0-4.8) k/uL Sodium 136 L (137-145) mmol/L Creatinine 0.48 L (0.52-1.04) mg/dL Glucose 113 H (74-99) mg/dL AST 186 H (14-36) U/L ALT 111 H (4-34) U/L Alkaline Phosphatase 138 H (38-126) U/L Total Protein 6.0 L (6.3-8.2) g/dL
--- NOTE | 2023-09-08 18:02 | P.CONS ---
History of Present Illness - Reason for Consult Consult date: 09/08/23 on treatment for breast cancer, facial rash Requesting physician: Juan Diego Napier - Chief Complaint fever, face rash - History of Present Illness Mrs. Maurer is a pleasant 43-year-old female from [facility] in [place], currently on treatment with Trodelvy for metastatic triple negative breast cancer. She has been on since April, and been doing fairly well, she has not required any doses to be held, she does receive G-CSF on day 9. She states that she woke up with pain in her face, she reports that the left side of her face "hurts", and describes it as "burning". She feels that it is spreading to the right side of her neck. She denies rash anywhere else. She has not had a fever since her admission. She denies recent illnesses, vision changes, itching, nausea, vomiting, oral irritation, ear pain, sore throat, cough, shortness of breath, chest pain, abdominal pain or distention, acute changes in bowel or bladder habits. Chest x-ray was negative. She has been started on antibiotics for concerns for cellulitis. CBC and CMP nothing terribly remarkable other than elevated LFTs that are about 3-4 times the upper limit of normal. Patient has no other symptoms to report. Review of Systems 14 point ROS is neg except as stated in HPI Past Medical History Past Medical History: Cancer Additional Past Medical History / Comment(s): breast cancer History of Any Multi-Drug Resistant Organisms: None Reported Past Surgical History: Breast Surgery, Section, Hysterectomy Additional Past Surgical History / Comment(s): double mastectomy Past Psychological History: ADD/ADHD, Anxiety, Depression Smoking Status: Never smoker Past Alcohol Use History: Occasional Past Drug Use History: None Reported Medications and Allergies Home Medications Medication Instructions Recorded Confirmed Type Apixaban [Eliquis] 5 mg PO BID 09/07/23 09/07/23 History Dicyclomine [Bentyl] 20 mg PO Q8H PRN 09/07/23 09/07/23 History FLUoxetine HCL [Fluoxetine HCl] 60 mg PO HS 09/07/23 09/07/23 History HYDROmorphone [Dilaudid] 4 mg PO Q4H 09/07/23 09/07/23 History LORazepam [Ativan] 0.5 mg PO TID 09/07/23 09/07/23 History OLANZapine [ZyPREXA] 5 mg PO HS 09/07/23 09/07/23 History Ondansetron Odt [Zofran Odt] 8 mg PO Q6H PRN 09/07/23 09/07/23 History Temazepam 22.5 mg PO HS 09/07/23 09/07/23 History fentaNYL 25MCG/HR PATCH [Duragesic 1 patch TRANSDERM Q72H 09/07/23 09/07/23 History 25MCG/HR] Allergies Allergy/AdvReac Type Severity Reaction Status Date / Time alpelisib [From Piqray] Allergy Rash/Hives Verified 09/07/23 19:51 Iodinated Contrast Media Allergy Unknown Verified 09/07/23 19:51 [Iodinated Contrast- Oral and IV Dye] Physical Exam Vitals: Vital Signs Temp Pulse Pulse Resp BP BP Pulse Ox 09/08/23 13:45 97.9 F 85 16 99/63 94 L 09/08/23 08:00 98.4 F 85 16 99/60 94 L 09/08/23 02:00 98.2 F 69 18 114/65 98 09/07/23 18:17 98.7 F 87 18 117/78 99 Intake and Output 09/08/23 09/08/23 09/08/23 06:59 14:59 22:59 Other: Voiding Method Toilet Toilet # Voids 1 Weight 97.522 kg - Constitutional General appearance: average body habitus, cooperative, no acute distress - EENT Eyes: anicteric sclerae, EOMI ENT: hearing grossly normal, normal oropharynx - Neck Neck: no lymphadenopathy - Respiratory Respiratory: bilateral: CTA - Cardiovascular Rhythm: regular Heart sounds: normal: S1, S2 Abnormal Heart Sounds: no systolic murmur, no diastolic murmur, no rub, no S3 Gallop, no S4 Gallop, no click, no other leg Peripheral Edema: bilateral: None - Gastrointestinal General gastrointestinal: normal bowel sounds, soft - Integumentary left facial rash, red no pustules or drainage, some redness to the right neck - Neurologic Neurologic: CNII-XII intact - Musculoskeletal Musculoskeletal: strength equal bilaterally - Psychiatric Psychiatric: A&O x's 3, appropriate affect, intact judgment & insight Results CBC & Chem 7: 09/07/23 15:56 09/08/23 06:46 Labs: Abnormal Lab Results - Last 24 Hours (Table) 09/08/23 Range/Units 06:46 Creatinine 0.48 L (0.52-1.04) mg/dL Chest x-ray: report reviewed Assessment and Plan (1) Metastatic adenocarcinoma to breast Current Visit: Yes Status: Acute Code(s): C79.81 - SECONDARY MALIGNANT NEOPLASM OF BREAST SNOMED Code(s): 284707364464538 (2) Cellulitis Current Visit: Yes Status: Acute Code(s): L03.90 - CELLULITIS, UNSPECIFIED SNOMED Code(s): 971884773 (3) Fever Current Visit: Yes Status: Acute Code(s): R50.9 - FEVER, UNSPECIFIED SNOMED Code(s): 360276557 Plan: Metastatic triple negative breast cancer -Patient reports most recently she has been on Trodelvy, since April, been going well, no need for hold. -Trodelvy regimen is days 1 and 8 every 21 days. Patient has had day one of this cycle, day 8 is due this week along with G-CSF. This will be on hold until patient's origin of facial rash has been determined and has been treated adequately. She will return to her Oncologist at [facility] for assessment prior to resuming. -Elevated LFTs can be seen in Trodelvy. Typically if they remain less than 3-4 times the upper limit of normal treatment can continue. Will see how her LFTs change while inpatient. Facial rash -Not a typical side effect with Trodelvy -Infectious diseases consulted. Patient is on antibiotics. -Continue to monitor patient very closely and see how she progresses. Doctor attests: I performed a history and physical examination of this patient, developed impression and plan of care. Discussed with dictator. I agree with dictators note, documented as a scribe.
--- NOTE | 2023-09-09 08:12 | P.CONS ---
History of Present Illness - Reason for Consult Consult date: 09/08/23 Fever undergoing chemo for metastatic breast cancer Requesting physician: Juan Diego Napier - Chief Complaint Fever and left-sided facial swelling redness x 1 day - History of Present Illness Patient is a 43-year-old with a past medical history significant for breast cancer currently on chemotherapy also with a history of anxiety depression ADHD presenting to the hospital for evaluation of fever the day of presentation to the hospital patient did have temperature 100.3 degrees Fahrenheit and the patient also developed erythema to her left cheek area patient denies any histo ry of any trauma has been complaining of pain which is mostly dull aching to sharp mild to moderate intensity without any radiation patient currently do not have any blisters or open wound and no drainage with the symptoms the patient was evaluated on presentation to the hospital patient did have low-grade fever of 99.2 F patient was not tachycardic hypotensive or hypoxic and no need for supplemental oxygen did have a white count of 13.1 with a left shift creatinine was 0.54 urine was negative influenza RSV COVID testing was negative blood cultures which are currently pending chest x-ray no acute cardiopulmonary disease process patient was started on vancomycin and cefepime infectious disea se was consulted for further management of antibiotic therapy Review of Systems Positive point and negatives has been mentioned in the HPI, complete review of systems was performed and all other systems are negative Past Medical History Past Medical History: Cancer Additional Past Medical History / Comment(s): breast cancer History of Any Multi-Drug Resistant Organisms: None Reported Past Surgical History: Breast Surgery, Section, Hysterectomy Additional Past Surgical History / Comment(s): double mastectomy Past Psychological History: ADD/ADHD, Anxiety, Depression Smoking Status: Never smoker Past Alcohol Use History: Occasional Past Drug Use History: None Reported Medications and Allergies Home Medications Medication Instructions Recorded Confirmed Type Apixaban [Eliquis] 5 mg PO BID 09/07/23 09/07/23 History Dicyclomine [Bentyl] 20 mg PO Q8H PRN 09/07/23 09/07/23 History FLUoxetine HCL [Sarafem] 60 mg PO HS 09/07/23 09/07/23 History HYDROmorphone [Dilaudid] 4 mg PO Q4H 09/07/23 09/07/23 History LORazepam [Ativan] 0.5 mg PO TID 09/07/23 09/07/23 History OLANZapine [ZyPREXA] 5 mg PO HS 09/07/23 09/07/23 History Ondansetron Odt [Zofran ODT] 8 mg PO Q6H PRN 09/07/23 09/07/23 History Temazepam 22.5 mg PO HS 09/07/23 09/07/23 History fentaNYL 25MCG/HR PATCH [Duragesic 1 patch TRANSDERM Q72H 09/07/23 09/07/23 History 25MCG/HR] Cephalexin [Keflex] 500 mg PO Q6HR 7 Days #28 cap 09/10/23 Rx Hydrocortisone Cream 1 applic TOPICAL TID 7 Days #1 09/10/23 Rx [Hydrocortisone 1% Cream] cream Allergies Allergy/AdvReac Type Severity Reaction Status Date / Time alpelisib [From [facility]] Allergy Rash/Hives Verified 09/07/23 19:51 Iodinated Contrast Media Allergy Unknown Verified 09/07/23 19:51 [Iodinated Contrast- Oral and IV Dye] Physical Exam Vitals: Vital Signs Temp Pulse Resp BP BP Pulse Ox 09/09/23 02:35 113/77 09/09/23 02:00 98.4 F 84 16 91/60 97 09/08/23 20:00 98.1 F 80 16 96/62 94 L 09/08/23 13:45 97.9 F 85 16 99/63 94 L Intake and Output 09/08/23 09/09/23 09/09/23 22:59 06:59 14:59 Intake Total 1180 Balance 1180 Intake: Intake, IV Titration 600 Amount Cefepime 1 gm In Sodium 100 Chloride 0.9% 50 ml @ 100 mls/hr IVPB Q8HR [facility] Rx# :[id number] Vancomycin 1,500 mg In 500 Sodium Chloride 0.9% 500 ml 500 ml @ 167 mls/hr IVPB Q8H [facility] Rx#: [id number] Oral 580 Other: Voiding Method Toilet # Voids 2 3 GENERAL DESCRIPTION: Middle-aged male lying in bed, no distress. No tachypnea or accessory muscle of respiration use. HEENT: Shows Pallor , no scleral icterus. Oral mucous membrane is dry. No pharyngeal erythema or thrush NECK: Trachea central, no thyromegaly. LUNGS: Unlabored breathing. Clear to auscultation anteriorly. No wheeze or crackle. HEART: S1, S2, regular rate and rhythm. No loud murmur ABDOMEN: Soft, no tenderness , guarding or rigidity, no organomegaly EXTREMITIES: No edema of feet. SKIN: Patient did have left-sided facial erythema no blister no drainage NEUROLOGICAL: The patient is awake, alert, oriented x3, mood and affect normal. Results CBC & Chem 7: 09/09/23 05:39 09/09/23 05:39 Labs: Abnormal Lab Results - Last 24 Hours (Table) 09/08/23 Range/Units 06:46 Creatinine 0.48 L (0.52-1.04) mg/dL Microbiology - Last 24 Hours (Table) 09/07/23 15:40 Blood Culture - Preliminary Blood 09/07/23 16:09 Blood Culture - Preliminary Blood Assessment and Plan (1) Leukocytosis Status: Acute Code(s): D72.829 - ELEVATED WHITE BLOOD CELL COUNT, UNSPECIFIED SNOMED Code(s): 643356042 (2) Facial cellulitis Status: Acute Code(s): L03.211 - CELLULITIS OF FACE SNOMED Code(s): 7841784 02 (3) Fever Status: Acute Code(s): R50.9 - FEVER, UNSPECIFIED SNOMED Code(s): 966306149 Plan: 1patient presented to hospital with fever and this patient who did have evid ence of left facial cellulitis with diffuse swelling and redness more likely streptococcal disease underlying resistant gram-negative or gram-positive, because of history of breast cancer on chemotherapy being immunocompromised 2-megha the area of the redness 3-patient to continue the vancomycin and cefepime while waiting for the culture to finalize We will follow on clinical condition and cultures to further adjust medication if needed Thank you for this consultation we will follow the patient along with you Dictation was produced using [employer] dictation software. please excuse any grammatical, word or spelling errors. Time with Patient: Greater than 30
[2023-09-09] MEDS ORDERED: HYDROCORTISONE 1% CREAM 30 GM TUBE TOPICAL PRN (08:43)
[2023-09-09 08:50] LABS: HCT 33.2 % (37.2-46.3); HGB 10.4 g/dL (12.0-15.0); MCH 28.9 pg (27.0-32.0); MCHC 31.3 g/dL (32.0-37.0); MCV 92.2 FL (80.0-97.0); Mean Platelet Volume 9.8 FL (9.5-12.2); NRBC Per 100 WBC 0 X 10*3/uL (0.00-0.01); Platelet Count 224 X 10*3/uL (140-440); RDW 14.1 % (11.5-14.5); WBC 5.23 X 10*3/uL (4.50-10.00)
[2023-09-09 08:52] LABS: ALT 52 U/L (8-44); AST 27 U/L (13-35); Albumin 3.4 g/dL (3.8-4.9); Albumin/Globulin Ratio 1.89 Ratio (1.60-3.17); Alkaline Phosphatase 115 U/L (41-126); Blood Urea Nitrogen 11.6 mg/dL (9.0-27.0); Calcium 8.4 mg/dL (8.7-10.3); Carbon Dioxide 21.1 mmol/L (21.6-31.8); Chloride 109 mmol/L (96-109); Globulin 1.8 g/dL (1.6-3.3); Glucose 101 mg/dL (70-110); Magnesium 2.1 mg/dL (1.5-2.4); Potassium 4.4 mmol/L (3.5-5.5); Sodium 139 mmol/L (135-145); Total Bilirubin 0.3 mg/dL (0.3-1.2); Total Protein 5.2 g/dL (6.2-8.2)
[2023-09-09] MEDS: HYDROCORTISONE 1% CREAM 30 GM TUBE TOPICAL SCH (10:23)
[2023-09-09] MEDS: VANCOMYCIN TROUGH DUE 1 EACH MISC MISCELLANE ONE (10:49)
--- NOTE | 2023-09-09 12:32 | P.PN ---
Subjective Progress Note Date: 09/09/23 Principal diagnosis: Reason for follow-up is left facial cellulitis Patient is a 43-year-old with a past medical history significant for breast cancer currently on chemotherapy also with a history of anxiety depression ADHD presenting to the hospital for evaluation of fever, patient also noticed to have cellulitis to the left side of the face. On today's evaluation that is 09/09/2023, the patient did have resolution of her fever and is afebrile today, the patient left-sided facial swelling and redness Weakness, patient is on room air and breathing comfortably, The patient denies having any chest pain or cough, the patient denies having any abdominal pain no vomiting or any diarrhea has been reported by the nursing staff. Patient white count is 25.23, creatinine 0.5 blood cultures are pending Objective - Vital Signs Vital signs: Vital Signs Temp 97.6 F 09/09/23 07:52 Pulse 76 09/09/23 07:52 Resp 11 L 09/09/23 07:52 BP 106/70 09/09/23 07:52 Pulse Ox 97 09/09/23 07:52 FiO2 Intake & Output 09/08/23 09/09/23 09/09/23 18:59 06:59 18:59 Intake Total 1180 Balance 1180 Intake: Intake, IV Titration 600 Amount Cefepime 1 gm In Sodium 100 Chloride 0.9% 50 ml @ 100 mls/hr IVPB Q8HR [facility] Rx# :[id number] Vancomycin 1,500 mg In 500 Sodium Chloride 0.9% 500 ml 500 ml @ 167 mls/hr IVPB Q8H [facility] Rx#: [id number] Oral 580 Other: Voiding Method Toilet Toilet Toilet # Voids 2 3 - Exam GENERAL DESCRIPTION: Middle-aged female lying in bed in no distress HEENT: Left-sided facial redness slightly decreased RESPIRATORY SYSTEM: Unlabored breathing , decreased breath sounds at bases HEART: S1 S2 regular rate and rhythm , ABDOMEN: Soft , no tenderness EXTREMITIES: No edema feet - Labs CBC & Chem 7: 09/09/23 05:39 09/09/23 05:39 Labs: Abnormal Lab Results - Last 24 Hours (Table) 09/09/23 09/09/23 Range/Units 05:39 05:39 RBC 3.60 L (4.10-5.20) X 10*6/uL Hgb 10.4 L (12.0-15.0) g/dL Hct 33.2 L (37.2-46.3) % MCHC 31.3 L (32.0-37.0) g/dL Carbon Dioxide 21.1 L (21.6-31.8) mmol/L Creatinine 0.5 L (0.6-1.5) mg/dL BUN/Creatinine Ratio 23.20 H (12.00-20.00) Ratio Calcium 8.4 L (8.7-10.3) mg/dL ALT 52 H (8-44) U/L Total Protein 5.2 L (6.2-8.2) g/dL Albumin 3.4 L (3.8-4.9) g/dL Microbiology - Last 24 Hours (Table) 09/07/23 15:40 Blood Culture - Preliminary Blood 09/07/23 16:09 Blood Culture - Preliminary Blood Assessment and Plan (1) Facial cellulitis Current Visit: Yes Status: Acute Code(s): L03.211 - CELLULITIS OF FACE SNOMED Code(s): 446613756 Plan: 1patient presented to hospital with fever and this patient who did have evidence of left facial cellulitis with diffuse swelling and redness more likely streptococcal disease underlying resistant gram-negative or gram-positive vaginal dryness only because of history of breast cancer on chemotherapy being immunocompromised 2-we will discontinue vancomycin and cefepime, start the patient on cefazolin if continue to improve and culture negative will be able to finish therapy with oral Keflex Question concern answered Dictation was produced using [employer] dictation software. please excuse any grammatical, word or spelling errors. Time with Patient: Less than 30
--- NOTE | 2023-09-09 13:37 | P.PN ---
Subjective Progress Note Date: 09/09/23 Principal diagnosis: facial cellulitis. On treatment for met breast cancer In f/u today pt reports face pain/burning has resolved, swelling is better. No fevers, tolerating oral intake Objective - Vital Signs Vital signs: Vital Signs Temp 98.4 F 09/09/23 11:45 Pulse 78 09/09/23 11:45 Resp 12 09/09/23 11:45 BP 101/61 09/09/23 11:45 Pulse Ox 96 09/09/23 11:45 FiO2 Intake & Output 09/08/23 09/09/23 09/09/23 18:59 06:59 18:59 Intake Total 1180 Balance 1180 Intake: Intake, IV Titration 600 Amount Cefepime 1 gm In Sodium 100 Chloride 0.9% 50 ml @ 100 mls/hr IVPB Q8HR [facility] Rx# :[id number] Vancomycin 1,500 mg In 500 Sodium Chloride 0.9% 500 ml 500 ml @ 167 mls/hr IVPB Q8H [facility] Rx#: [id number] Oral 580 Other: Voiding Method Toilet Toilet Toilet # Voids 2 3 - Constitutional General appearance: Present: cooperative, no acute distress, obese - EENT Eyes: Present: anicteric sclerae, EOMI ENT: Present: hearing grossly normal - Respiratory Details: resp even and unlabored - Peripheral edema leg Peripheral Edema: bilateral: None - Integumentary Integumentary Comment(s): left side of face is less red, swollen, side of area affected looks smaller. No drainage or open sores noted - Neurologic Neurologic: Present: CNII-XII intact - Musculoskeletal Musculoskeletal: Present: strength equal bilaterally - Psychiatric Psychiatric: Present: A&O x's 3, appropriate affect, intact judgment & insight - Labs CBC & Chem 7: 09/09/23 05:39 09/09/23 05:39 Labs: Abnormal Lab Results - Last 24 Hours (Table) 09/09/23 09/09/23 Range/Units 05:39 05:39 RBC 3.60 L (4.10-5.20) X 10*6/uL Hgb 10.4 L (12.0-15.0) g/dL Hct 33.2 L (37.2-46.3) % MCHC 31.3 L (32.0-37.0) g/dL Carbon Dioxide 21.1 L (21.6-31.8) mmol/L Creatinine 0.5 L (0.6-1.5) mg/dL BUN/Creatinine Ratio 23.20 H (12.00-20.00) Ratio Calcium 8.4 L (8.7-10.3) mg/dL ALT 52 H (8-44) U/L Total Protein 5.2 L (6.2-8.2) g/dL Albumin 3.4 L (3.8-4.9) g/dL Microbiology - Last 24 Hours (Table) 09/07/23 15:40 Blood Culture - Preliminary Blood 09/07/23 16:09 Blood Culture - Preliminary Blood Assessment and Plan (1) Metastatic adenocarcinoma to breast Current Visit: Yes Status: Acute Code(s): C79.81 - SECONDARY MALIGNANT NEOPLASM OF BREAST SNOMED Code(s): 476549222325785 (2) Cellulitis Current Visit: Yes Status: Acute Code(s): L03.90 - CELLULITIS, UNSPECIFIED SNOMED Code(s): 439323166 (3) Fever Current Visit: Yes Status: Acute Code(s): R50.9 - FEVER, UNSPECIFIED SNOMED Code(s): 489425893 Plan: Metastatic triple negative breast cancer -Patient reports most recently she has been on Trodelvy, since April, been going well, no need for hold. -Trodelvy regimen is days 1 and 8 every 21 days. Patient has had day one of this cycle, day 8 is due this week along with G-CSF. She will f/u with her Oncologist at [facility] for assessment prior to resuming treatment -Elevated LFTs are WNL today. CMP will cont to be monitored while pt on treatment Facial rash -Not a typical side effect with Trodelvy -Much improved in 1 day with abx -Infectious diseases has seen pt. Awaiting their recommendations for antibiotic and duration Pt is ok from Hem/Onc standpoint to be discha-rged once cleared by Attending and consulting MDs Doctor attests: I performed a history and physical examination of this patient, developed impression and plan of care. Discussed with dictator. I agree with dictators note, documented as a scribe.
[2023-09-09] MEDS: ONDANSETRON 4 MG/2 ML VIAL IVP PRN (16:59)
--- NOTE | 2023-09-09 17:04 | P.PN ---
Subjective Progress Note Date: 09/09/23 Hospital course: Patient is a very pleasant 43-year-old female with a past medical history of metastatic breast cancer currently undergoing chemotherapy with last treatment being 09/04/2023. She presented to the emergency department with a chief complaint of fever of 100.3 F and painful rash to the left side of her face. She underwent full evaluation in the emergency department. Upon arrival vital signs show blood pressure 112/66, heart rate 91, respiratory rate 20, temp 98.9 F, SpO2 of 95% on room air. Labs completed and reviewed. CBC showing leukocytosis with WBC count of 13.1. BMP unremarkable. Lactic acid normal findings at 1.3. Liver profile showing transaminitis with AST of 186, ALT of 111, and alkaline phosphatase of 138. Urinalysis negative for infection. Influenza A, influenza B, RSV, and COVID PCR were negative. Chest x-ray completed negative for acute cardiopulmonary process. Patient admitted under our services with consultation to oncology and infectious disease. Physical exam: Patient seen and fully evaluated at bedside this morning. She was resting comfortably. Reports continued irritation to left side of face from rash, otherwise denies any complaints at this time. Vital signs reviewed and stable. General: Nontoxic, no distress and appears stated age. Derm: Skin warm and dry, normal coloration for ethnicity. Moderately erythemic rash involving the left side of the face over the evangelical zygomatic arch and entire left cheek warm to the touch and tender, no induration, no drainage, and no open wounds Head: Atraumatic, normocephalic and symmetric. Eyes: EOMs intact, no lid lag, and anicteric sclera Mouth: no lip lesions, mucus membranes moist Cardiovascular: regular rate and rhythm with normal S1S2, no murmur, positive posterior tibial pulses bilaterally, and cap refill < 2 seconds. Right-sided [id number]. Lungs: Respirations even, regular, and unlabored on room air. Lungs CTA bilaterally, no rhonchi, no rales, no wheezing, and no accessory muscle usage. Abdominal: soft, nontender to palpation, no guarding, no appreciable organomegaly Ext: ROM intact. No gross muscle atrophy, no edema, no contractures Neuro: Speech clear, face symmetrical and CN II-XII grossly intact with no noted focal neuro deficits Psych: Alert and oriented to person, place, time, and situation. Appropriate and pleasant affect. Assessment and Plan of Care: 43-year-old female with metastatic breast cancer currently on chemotherapy coming in for 1 to 2-day history of a fever and left-sided face rash. Sepsis with suspected underlying left-sided facial erysipelas (white count 13.1, heart rate 91, blood pressure 99/60 and fever reported prior to arrival of 100.3 F) -Follow-up on blood cultures. -Continue IV antibiotics with vancomycin 1500 mg every 8 hours and cefepime 2 g IVPB every 8 hours. Monitor renal function and vancomycin trough closely for any signs of vancomycin associated renal toxicity. -Continue Tylenol 650 mg every 6 hours as needed for fever, temperature high over the past 24 hours is 99.2 F. -Continue with home medications pain control with Dilaudid 4 mg pills p.o. as needed -Infectious disease consulted. Metastatic breast cancer currently on chemotherapy -Oncology consulted. Appreciate recommendations. Transaminitis, likely secondary to metastasis -Patient reports chronic elevated liver enzymes due to metastasis -Liver profile revealing AST 182, ALT 111, and alkaline phosphatase of 138. Data and imaging reviewed: Vital signs reviewed. Blood pressure 99/60, heart rate 85, respiratory rate 16, temp 98.4 F, and SpO2 of 94% on room air. Labs reviewed. CBC showing mild normocytic anemia with hemoglobin of 10.4 and resolution of leukocytosis with WBC count of 5.23. BMP unremarkable.. Liver profile revealing improvement in transaminitis with AST of 27, ALT of 52, and alkaline phosphatase of 115. CODE STATUS: Full code DVT prophylaxis: Eliquis Anticipated discharge date: Clinical course to determine Anticipated discharge place: Clinical course to determine Patient was seen independently by Nurse Pracitioner. This document was prepared using [employer] dictation software. Please allow for errors in director of workforce development, while rare they do occur. Juan Diego Napier NP rendered care for this patient independently, reviewed the findings and plan as documented in the note above. I did not physically speak with or examine the patient on this date. Objective - Vital Signs Vital signs: Vital Signs Temp 97.6 F 09/09/23 07:52 Pulse 76 09/09/23 07:52 Resp 11 L 09/09/23 07:52 BP 106/70 09/09/23 07:52 Pulse Ox 97 09/09/23 07:52 FiO2 Intake & Output 09/08/23 09/09/23 09/09/23 18:59 06:59 18:59 Intake Total 1180 Balance 1180 Intake: Intake, IV Titration 600 Amount Cefepime 1 gm In Sodium 100 Chloride 0.9% 50 ml @ 100 mls/hr IVPB Q8HR [facility] Rx# :[id number] Vancomycin 1,500 mg In 500 Sodium Chloride 0.9% 500 ml 500 ml @ 167 mls/hr IVPB Q8H [facility] Rx#: [id number] Oral 580 Other: Voiding Method Toilet Toilet Toilet # Voids 2 3 - Labs CBC & Chem 7: 09/09/23 05:39 09/09/23 05:39 Labs: Abnormal Lab Results - Last 24 Hours (Table) 09/08/23 Range/Units 06:46 Creatinine 0.48 L (0.52-1.04) mg/dL Microbiology - Last 24 Hours (Table) 09/07/23 15:40 Blood Culture - Preliminary Blood 09/07/23 16:09 Blood Culture - Preliminary Blood
[2023-09-09] MEDS ORDERED: VANCOMYCIN 1,500 MG in SODIUM CHLORIDE 0.9% 500 ML 500 ML IVPB SCH (23:00)
[2023-09-10 09:31] VITALS: PULSE 75; RESP 15; TEMP 97.8
[2023-09-10 11:36] VITALS: BP 116/75
--- NOTE | 2023-09-10 16:45 | P.DS ---
Providers Date of admission: 09/07/23 19:40 Expected date of discharge: 09/10/23 Attending physician: Rosio Keys MD Consults: 09/08/23 08:56 Consult Physician Routine Consulting Provider: Susan Brower Consult Reason/Comments: metastatic breast cancer undergoing chemo, presenting w/ fever and rash Do you want consulting provider notified?: Yes 09/08/23 15:28 Consult Physician Routine Consulting Provider: Lauri Soto Consult Reason/Comments: fever undergoing chemo for metastatic Breast CA, facial rash/erysipelas Do you want consulting provider notified?: Yes Primary care physician: [facility] Course: Discharge Diagnosis: Sepsis with suspected underlying left-sided facial erysipelas (initial white count 13.1, heart rate 91, blood pressure 99/60 and fever reported prior to arrival of 100.3 F). Patient admitted under our services with consultation to oncology and infectious disease. She was placed on broad-spectrum IV antibiotics with vancomycin and cefepime. Preliminary blood cultures showing no growth and antibiotics de-escalated down to Rocephin with hydrocortisone cream. Patient had no further episodes of elevated temps and facial erysipelas/cellulitis significantly improved. Patient was cleared by hematology/oncology for discharge stating patient may resume scheduled chemotherapeutic treatment tomorrow. Blood cultures showing no growth to date x 48 hours, infectious disease clearing patient from their standpoint recommending discharge home on Keflex 500 mg every 6 hours x 7 days. Leukocytosis resolved with initial WBC count of 13.1 decreasing to 5.23. Prescription sent for hydrocortisone cream and Keflex. Metastatic breast cancer currently on chemotherapy. Oncology evaluated, clearing patient from their perspective to resume scheduled chemotherapeutic treatment tomorrow. Transaminitis, likely secondary to metastasis. Patient reported chronic elevated liver enzymes due to metastasis, however transaminitis significantly improving with initial AST of 186, ALT 111, and alkaline phosphatase of 138 decreasing to AST of 27, ALT of 52, and alkaline phosphatase of 115. Hospital Course: Patient is a very pleasant 43-year-old female with a past medical history of metastatic breast cancer currently undergoing chemotherapy with last treatment being 09/04/2023. She presented to the emergency department with a chief complaint of fever of 100.3 F and painful rash to the left side of her face. She underwent full evaluation in the emergency department. Upon arrival vital signs show blood pressure 112/66, heart rate 91, respiratory rate 20, temp 98.9 F, SpO2 of 95% on room air. Labs completed and reviewed. CBC showing leukocytosis with WBC count of 13.1. BMP unremarkable. Lactic acid normal findings at 1.3. Liver profile showing transaminitis with AST of 186, ALT of 111, and alkaline phosphatase of 138. Urinalysis negative for infection. Influenza A, influenza B, RSV, and COVID PCR were negative. Chest x-ray completed negative for acute cardiopulmonary process. Patient admitted under our services with consultation to oncology and infectious disease. She was placed on broad-spectrum IV antibiotics with vancomycin and cefepime. Preliminary blood cultures showing no growth and antibiotics de-escalated down to Rocephin with hydrocortisone cream. Patient had no further episodes of elevated temps and facial erysipelas/cellulitis significantly improved. Patient was cleared by hematology/oncology for discharge stating patient may resume scheduled chemotherapeutic treatment tomorrow. Blood cultures showing no growth to date x 48 hours, infectious disease clearing patient from their standpoint recommending discharge home on Keflex 500 mg every 6 hours x 7 days. Medically, patient is stable for discharge at this time vital signs as follows blood pressure 109/70, heart rate 75, respiratory rate 15, temp 97.8 F, and SpO2 of 97% on room air. Leukocytosis resolved with initial WBC count of 13.1 decreasing to 5.23. Prescription sent for hydrocortisone cream and Keflex. Patient to follow-up outpatient with PCP in 1 to 2 days and was cleared by heme- onc to resume scheduled chemotherapeutic treatments tomorrow. Physical exam: Vital signs reviewed and stable. General: Nontoxic, no distress and appears stated age. Derm: Skin warm and dry, normal coloration for ethnicity. Mild rash involving the left side of the face over the baptism zygomatic arch and left cheek showing significant improvement. Appears to be drying out with significant improvement in redness. Head: Atraumatic, normocephalic and symmetric. Eyes: EOMs intact, no lid lag, and anicteric sclera Mouth: no lip lesions, mucus membranes moist Cardiovascular: regular rate and rhythm with normal S1S2, no murmur, positive posterior tibial pulses bilaterally, and cap refill < 2 seconds. Right-sided [id number]. Lungs: Respirations even, regular, and unlabored on room air. Lungs CTA bilaterally, no rhonchi, no rales, no wheezing, and no accessory muscle usage. Abdominal: soft, nontender to palpation, no guarding, no appreciable organomegaly Ext: ROM intact. No gross muscle atrophy, no edema, no contractures Neuro: Speech clear, face symmetrical and CN II-XII grossly intact with no noted focal neuro deficits Psych: Alert and oriented to person, place, time, and situation. Appropriate and pleasant affect. A total of 31 minutes of time were spent preparing this complex discharge summary. Pt was discharged on 09/10/2023 at 11:40 AM. Patient was seen independently by Nurse Practitioner. This document was prepared using [employer] dictation software. Please allow for errors in aeronautical engineering technologist while rare they do occur. Patient Condition at Discharge: Stable Plan - Discharge Summary New Discharge Prescriptions: New Hydrocortisone Cream [Hydrocortisone 1% Cream] 1 applic TOPICAL TID 7 Days #1 cream Cephalexin [Keflex] 500 mg PO Q6HR 7 Days #28 cap Continue Ondansetron Odt [Zofran ODT] 8 mg PO Q6H PRN PRN Reason: Nausea And Vomiting OLANZapine [ZyPREXA] 5 mg PO HS Temazepam 22.5 mg PO HS LORazepam [Ativan] 0.5 mg PO TID Apixaban [Eliquis] 5 mg PO BID FLUoxetine HCL [Sarafem] 60 mg PO HS fentaNYL 25MCG/HR PATCH [Duragesic 25MCG/HR] 1 patch TRANSDERM Q72H HYDROmorphone [Dilaudid] 4 mg PO Q4H Dicyclomine [Bentyl] 20 mg PO Q8H PRN PRN Reason: Gi Upset Discharge Medication List Apixaban [Eliquis] 5 mg PO BID 09/07/23 [History] Dicyclomine [Bentyl] 20 mg PO Q8H PRN 09/07/23 [History] FLUoxetine HCL [Sarafem] 60 mg PO HS 09/07/23 [History] HYDROmorphone [Dilaudid] 4 mg PO Q4H 09/07/23 [History] LORazepam [Ativan] 0.5 mg PO TID 09/07/23 [History] OLANZapine [ZyPREXA] 5 mg PO HS 09/07/23 [History] Ondansetron Odt [Zofran ODT] 8 mg PO Q6H PRN 09/07/23 [History] Temazepam 22.5 mg PO HS 09/07/23 [History] fentaNYL 25MCG/HR PATCH [Duragesic 25MCG/HR] 1 patch TRANSDERM Q72H 09/07/23 [History] Cephalexin [Keflex] 500 mg PO Q6HR 7 Days #28 cap 09/10/23 [Rx] Hydrocortisone Cream [Hydrocortisone 1% Cream] 1 applic TOPICAL TID 7 Days #1 cream 09/10/23 [Rx] Follow up Appointment(s)/Referral(s): Prince Simmons MD [Primary Care Provider] - 09/16/23 1:30 pm Patient Instructions/Handouts: Cellulitis (GEN) Activity/Diet/Wound Care/Special Instructions: . Activity: As tolerated. Diet: Resume regular diet. Special Instructions: Take all of your medications as directed and remember to keep all of your doctor's appointments and follow-up as needed. Thank you for allowing us to participate in your care, it was truly a pleasure having you for our patient!!! . Discharge Disposition: HOME SELF-CARE
--- NOTE | 2023-09-11 14:23 | P.PN ---
Subjective Progress Note Date: 09/10/23 Principal diagnosis: Reason for follow-up is left facial cellulitis Patient is a 43-year-old with a past medical history significant for breast cancer currently on chemotherapy also with a history of anxiety depression ADHD presenting to the hospital for evaluation of fever, patient also noticed to have cellulitis to the left side of the face. On today's evaluation that is 09/10/2023, Patient is afebrile patient is currently on room air and denies having any shortness of breath, the patient denies any chest pain or cough, the patient denies any nausea vomiting did not have any abdominal pain and no diarrhea, the patient left-sided facial swelling redness is improved feeling better wants to go home. Patient white count down to 5.23 creatinine 0.5 as of yesterday no lab draw today blood culture has been negative so far Objective - Vital Signs Vital signs: Vital Signs Temp 97.8 F 09/10/23 08:43 Pulse 75 09/10/23 08:43 Resp 15 09/10/23 08:43 BP 109/70 09/10/23 08:43 Pulse Ox 97 09/10/23 08:43 FiO2 Intake & Output 09/09/23 09/10/23 09/10/23 18:59 06:59 18:59 Other: Voiding Method Toilet Toilet Toilet # Voids 3 3 - Exam GENERAL DESCRIPTION: Middle-aged female lying in bed in no distress HEENT: Left-sided facial redness slightly decreased RESPIRATORY SYSTEM: Unlabored breathing , decreased breath sounds at bases HEART: S1 S2 regular rate and rhythm , ABDOMEN: Soft , no tenderness EXTREMITIES: No edema feet - Labs CBC & Chem 7: 09/09/23 05:39 09/09/23 05:39 Labs: Microbiology - Last 24 Hours (Table) 09/07/23 15:40 Blood Culture - Preliminary Blood 09/07/23 16:09 Blood Culture - Preliminary Blood Assessment and Plan (1) Facial cellulitis Status: Acute Code(s): L03.211 - CELLULITIS OF FACE SNOMED Code(s): 123246248 Plan: 1patient presented to hospital with fever and this patient who did have evidence of left facial cellulitis with diffuse swelling and redness more likely streptococcal disease underlying resistant gram-negative or gram-positive, the patient is immunocompromised because of her breast cancer on chemotherapy 2-patient has shown clinical improvement on cefazolin Dictation was produced using [employer] dictation soft and insisting on going home will finish therapy with oral Keflex x 7 days discussed with TECHNICAL CABLE JOINTER for admitting team working on dischargeware. please excuse any grammatical, word or spelling errors. Time with Patient: Greater than 30
== END 2023-09-10 12:15 | disposition home or self-care (01) | DRG 872 ==
LOC: EC 14:15 → UNDOADMOB 19:40 → 5NMEDONC 19:40
PROVIDERS: ADMIT Internal Medicine; ATTEND Internal Medicine
DX: A41.9 Sepsis, unspecified organism (principal); C79.9 Secondary malignant neoplasm of unspecified site; D84.81 Immunodeficiency due to conditions classified elsewhere; L03.211 Cellulitis of face; C50.919 Malignant neoplasm of unspecified site of unspecified female breast; D63.0 Anemia in neoplastic disease; A46 Erysipelas; F32.A Depression, unspecified; F41.9 Anxiety disorder, unspecified; B95.4 Other streptococcus as the cause of diseases classified elsewhere; Z17.1 Estrogen receptor negative status [ER-]; Z79.891 Long term (current) use of opiate analgesic; Z92.21 Personal history of antineoplastic chemotherapy; Z11.52 Encounter for screening for COVID-19; Z90.13 Acquired absence of bilateral breasts and nipples; Z79.01 Long term (current) use of anticoagulants; Z79.899 Other long term (current) drug therapy; Z88.8 Allergy status to other drugs, medicaments and biological substances; Z91.041 Radiographic dye allergy status; Z86.718 Personal history of other venous thrombosis and embolism
CPT/HCPCS: 36415; 71046; 80053; 80202; 81003; 82565; 83605; 83735; 85025; 85027; 87040; 87636; 96361; 96365; 96366; 96367; 96375; 99285

== ENCOUNTER 2024-06-16 08:17 | Inpatient (IN) | payer BC ==
--- NOTE | 2024-06-16 08:37 | ED ---
Dizziness HPI - General Chief Complaint: Dizziness Stated Complaint: Dizziness, cough Time Seen by Provider: 06/16/24 08:37 Source: patient, RN notes reviewed Mode of arrival: ambulatory Limitations: no limitations - History of Present Illness Initial Comments: 44-year-old female with a past medical history significant of metastatic breast cancer presented to the ER with a chief complaint of dizziness and fever. Patient is following up with Dr. Gould, oncology, out of [place]. She is currently undergoing chemotherapy last treatment 06/10/24. Patient reports for the past 24 hours she has had a cough, congestion, sore throat and running fevers. She has been taking [id number] Advil for fever control. She does report on Friday she received Neupogen shot. She has received this hot in the past with no reaction. Patient reports generalized body pain, shortness of breath and dizziness. She has not taken anything for pain today. She denies any diarrhea, constipation, urinary complaints or peripheral edema. Patient typically takes 4 mg of Dilaudid for pain control outpatient. - Related Data Home Medications Medication Instructions Recorded Confirmed Apixaban [Eliquis] 5 mg PO BID 09/07/23 06/16/24 Dicyclomine [Bentyl] 20 mg PO BID 09/07/23 06/16/24 FLUoxetine HCL [Sarafem] 60 mg PO DAILY 09/07/23 06/16/24 HYDROmorphone [Dilaudid] 4 mg PO Q4H PRN 09/07/23 06/16/24 Ondansetron Odt [Zofran ODT] 8 mg PO Q6H PRN 09/07/23 06/16/24 Temazepam 22.5 mg PO HS 09/07/23 06/16/24 fentaNYL 25MCG/HR PATCH [Duragesic 1 patch TRANSDERM Q72H 09/07/23 06/16/24 25MCG/HR] LORazepam [Ativan] 1 mg PO Q4H PRN 06/16/24 06/16/24 Mirtazapine 30 mg PO HS 06/16/24 06/16/24 OLANZapine [ZyPREXA] 7.5 mg PO DIRECTED 06/16/24 06/16/24 Pegfilgrastim [Neulasta] 6 mg SQ Q28D 06/16/24 06/16/24 fentaNYL 12MCG/HR PATCH [Duragesic 1 patch TRANSDERM Q72H 06/16/24 06/16/24 12MCG/HR] Allergies Allergy/AdvReac Type Severity Reaction Status Date / Time alpelisib [From [facility]] Allergy Rash/Hives Verified 06/16/24 09:48 Iodinated Contrast Media Allergy Rash/Hives Verified 06/16/24 09:48 [Iodinated Contrast- Oral and IV Dye] Review of Systems ROS Statement: Those systems with pertinent positive or pertinent negative responses have been documented in the HPI. ROS Other: All systems not noted in ROS Statement are negative. Past Medical History Past Medical History: Cancer Additional Past Medical History / Comment(s): breast cancer History of Any Multi-Drug Resistant Organisms: None Reported Past Surgical History: Breast Surgery, Section, Hysterectomy Additional Past Surgical History / Comment(s): double mastectomy Past Psychological History: ADD/ADHD, Anxiety, Depression Smoking Status: Never smoker Past Alcohol Use History: Occasional Past Drug Use History: None Reported General Exam Limitations: no limitations General appearance: alert, in no apparent distress ENT exam: Present: normal exam, normal oropharynx, mucous membranes moist, TM's normal bilaterally Neck exam: Present: normal inspection. Absent: tenderness, meningismus, lymphadenopathy Respiratory exam: Present: normal lung sounds bilaterally. Absent: respiratory distress, wheezes, rales, rhonchi, stridor Cardiovascular Exam: Present: normal rhythm, tachycardia, normal heart sounds GI/Abdominal exam: Present: soft, tenderness (Generalized), normal bowel sounds Neurological exam: Present: alert, oriented X3, CN II-XII intact Skin exam: Present: warm, dry, intact, normal color. Absent: rash Course Vital Signs 06/16/24 06/16/24 06/16/24 08:25 09:35 10:07 Temperature 99.9 F H 100.8 F H Pulse Rate 121 H 112 H 111 H Respiratory 20 18 18 Rate Blood Pressure 115/69 99/72 93/79 O2 Sat by Pulse 96 95 Oximetry 06/16/24 06/16/24 10:47 11:17 Temperature 101.6 F H Pulse Rate 113 H 108 H Respiratory 18 18 Rate Blood Pressure 96/77 119/69 O2 Sat by Pulse Oximetry - Reevaluation(s) Reevaluation #1: 06/16/24 11:[address] Farooq, [facility] physician, for admission. Medical Decision Making - Medical Decision Making Was pt. sent in by a medical professional or institution (DEA Breen, SHOP TAILOR APPRENTICE, urgent c are, hospital, or mcc...) When possible be specific @ -No Did you speak to anyone other than the patient for history (EMS, parent, family, police, friend...)? What history was obtained from this source @ -No Did you review nursing and triage notes (agree or disagree)? Why? @ -I reviewed and agree with nursing and triage notes Were old charts reviewed (outside hosp., previous admission, EMS record, old EKG, old radiological studies, urgent care reports/EKG's, mcc records)? Report findings @ -No old charts were reviewed Differential Diagnosis (chest pain, altered mental status, abdominal pain women, abdominal pain men, vaginal bleeding, weakness, fever, dyspnea, syncope, headache, dizziness, GI bleed, back pain, seizure, CVA, palpatations, mental health, musculoskeletal)? @ -Differential Fever: Pneumonia, viral URI, endocarditis, myocarditis, pericarditis, otitis, sinusitis, peritonsillar Abscess, retropharyngeal Abscess, epiglottitis, peritonitis, appendicitis, Celeste cystitis, diverticulitis, hepatitis, colitis, UTI, PID, TOA, pyelonephritis, prostatitis, epididymitis, meningitis, encephalitis, pulmonary embolism, CVA, thyroid storm, pancreatitis, adrenal crisis, cavernous sinus thrombosis, this is not meant to be an all- inclusive list. EKG interpreted by me (3pts min.). @ -As above X-rays interpreted by me (1pt min.). @ -CXR interpreted me negative for focal consolidations. Elevated right hemidiaphragm with small right pleural effusion. CT interpreted by me (1pt min.). @ -None done U/S interpreted by me (1pt. min.). @ -None done What testing was considered but not performed or refused? (CT, X-rays, U/S, labs)? Why? @ -None What meds were considered but not given or refused? Why? @ -None Did you discuss the management of the patient with other professionals (professionals i.e. DEA Breen, SHOP TAILOR APPRENTICE, lab, RT, psych nurse, social human services assistants, worsted winder, teacher, loan officer, registered nurse hh case manager)? Give summary @ -Yes, case discussed with [facility] physician, Dr. Farooq, for admission. Was smoking cessation discussed for >3mins.? @ -No Was critical care preformed (if so, how long)? @ -No Were there social determinants of health that impacted care today? How? (Homelessness, low income, unemployed, alcoholism, drug addiction, trans portation, low edu. Level, literacy, decrease access to med. care, care home, rehab)? @ -No Was there de-escalation of care discussed even if they declined (Discuss DNR or withdrawal of care, Hospice)? DNR status @ -No What co-morbidities impacted this encounter? (DM, HTN, Smoking, COPD, CAD, Cancer, CVA, ARF, Chemo, Hep., AIDS, mental health diagnosis, sleep apnea, morbid obesity)? @ -Metastatic breast cancer currently undergoing chemotherapy Was patient admitted / discharged? Hospital course, mention meds given and route, prescriptions, significant lab abnormalities, going to OR and other pert inent info. @ -Admitted. 44-year-old female presented to ER with a chief complaint of di zziness and fever. Patient is febrile at upon arrival at 99.9, tachycardic at 121 Vitals otherwise stable. Patient is ill-appearing but no signs of acute distress. Laboratory studies obtained showing a leukocytosis of 11.6 with a left shift. Lactic acid 1.7. Sodium 135, potassium 4.2, chloride 103, carbon oxide 25. Urinalysis unremarkable. Influenza, RSV, COVID and strep negative. Chest x-ray negative for focal consolidations. Patient given p.o. Tylenol and ibuprofen for fever control in the ER without improvement. Patient also given IV fluids and Dilaudid for pain control in the ER, with improvement. Admission considered and discussed with [facility] physician, Dr. Farooq, for further evaluation of fever of unknown origin. Blood cultures obtained (1 peripherally and 1 from port). Patient started on cefepime and vancomycin. Oncology on consult. Patient agreeable for admission. Patient admitted in stable condition. Case discussed with ED attending, Dr. Ibrahim. Undiagnosed new problem with uncertain prognosis? @ -No Drug Therapy requiring intensive monitoring for toxicity (Heparin, Nitro, Insulin, Cardizem)? @ -No Were any procedures done? @ -No Diagnosis/symptom? @ -Fever of unknown origin Acute, or Chronic, or Acute on Chronic? @ -Acute Uncomplicated (without systemic symptoms) or Complicated (systemic symptoms)? @ -Complicated Side effects of treatment? @ -No Exacerbation, Progression, or Severe Exacerbation? @ -No Poses a threat to life or bodily function? How? (Chest pain, USA, CA, pneumonia, PE, COPD, DKA, ARF, appy, cholecystitis, CVA, Diverticulitis, Homicidal, Suicidal, threat to staff... and all critical care pts) @ -Yes - Lab Data Result diagrams: 06/16/24 09:04 06/16/24 09:04 Lab Results 06/16/24 06/16/24 06/16/24 Range/Units 09:04 09:04 09:04 WBC 11.6 H (3.8-10.6) k/uL RBC 3.60 L (3.80-5.40) m/uL Hgb 10.8 L (11.4-16.0) gm/dL Hct 34.2 (34.0-46.0) % MCV 95.1 (80.0-100.0) fL MCH 29.9 (25.0-35.0) pg MCHC 31.4 (31.0-37.0) g/dL RDW 15.5 (11.5-15.5) % Plt Count 244 (150-450) k/uL MPV 6.7 Neutrophils % 83 % Lymphocytes % 10 % Monocytes % 5 % Eosinophils % 1 % Basophils % 0 % Neutrophils # 9.6 H (1.3-7.7) k/uL Lymphocytes # 1.1 (1.0-4.8) k/uL Monocytes # 0.5 (0-1.0) k/uL Eosinophils # 0.1 (0-0.7) k/uL Basophils # 0.0 (0-0.2) k/uL Hypochromasia Slight Sodium 135 L (137-145) mmol/L Potassium 4.2 (3.5-5.1) mmol/L Chloride 103 (98-107) mmol/L Carbon Dioxide 25 (22-30) mmol/L Anion Gap 7 mmol/L BUN 9 (7-17) mg/dL Creatinine 0.72 (0.52-1.04) mg/dL Est GFR (CKD-EPI)AfAm >90 (>60 ml/min/1.73 sqM) Est GFR (CKD-EPI)NonAf >90 (>60 ml/min/1.73 sqM) Glucose 133 H (74-99) mg/dL Plasma Lactic Acid Cecilio 1.7 (0.7-2.0) mmol/L Calcium 9.0 (8.4-10.2) mg/dL Total Bilirubin 0.4 (0.2-1.3) mg/dL AST 31 (14-36) U/L ALT 23 (4-34) U/L Alkaline Phosphatase 164 H (38-126) U/L Total Protein 6.1 L (6.3-8.2) g/dL Albumin 3.8 (3.5-5.0) g/dL Urine Color Urine Appearance (Clear) Urine pH (5.0-8.0) Ur Specific Solen (1.001-1.035) Urine Protein (Negative) Urine Glucose (UA) (Negative) Urine Ketones (Negative) Urine Blood (Negative) Urine Nitrite (Negative) Urine Bilirubin (Negative) Urine Urobilinogen (<2.0) mg/dL Ur Leukocyte Esterase (Negative) Influenza Type A (PCR) (Not Detectd) Influenza Type B (PCR) (Not Detectd) RSV (PCR) (Not Detectd) SARS-CoV-2 (PCR) (Not Detectd) Group A Strep (PCR) (Not Detectd) 06/16/24 06/16/24 06/16/24 Range/Units 09:04 09:04 10:48 WBC (3.8-10.6) k/uL RBC (3.80-5.40) m/uL Hgb (11.4-16.0) gm/dL Hct (34.0-46.0) % MCV (80.0-100.0) fL MCH (25.0-35.0) pg MCHC (31.0-37.0) g/dL RDW (11.5-15.5) % Plt Count (150-450) k/uL MPV Neutrophils % % Lymphocytes % % Monocytes % % Eosinophils % % Basophils % % Neutrophils # (1.3-7.7) k/uL Lymphocytes # (1.0-4.8) k/uL Monocytes # (0-1.0) k/uL Eosinophils # (0-0.7) k/uL Basophils # (0-0.2) k/uL Hypochromasia Sodium (137-145) mmol/L Potassium (3.5-5.1) mmol/L Chloride (98-107) mmol/L Carbon Dioxide (22-30) mmol/L Anion Gap mmol/L BUN (7-17) mg/dL Creatinine (0.52-1.04) mg/dL Est GFR (CKD-EPI)AfAm (>60 ml/min/1.73 sqM) Est GFR (CKD-EPI)NonAf (>60 ml/min/1.73 sqM) Glucose (74-99) mg/dL Plasma Lactic Acid Cecilio (0.7-2.0) mmol/L Calcium (8.4-10.2) mg/dL Total Bilirubin (0.2-1.3) mg/dL AST (14-36) U/L ALT (4-34) U/L Alkaline Phosphatase (38-126) U/L Total Protein (6.3-8.2) g/dL Albumin (3.5-5.0) g/dL Urine Color Colorless Urine Appearance Clear (Clear) Urine pH 6.0 (5.0-8.0) Ur Specific Solen 1.008 (1.001-1.035) Urine Protein Negative (Negative) Urine Glucose (UA) Negative (Negative) Urine Ketones Negative (Negative) Urine Blood Negative (Negative) Urine Nitrite Negative (Negative) Urine Bilirubin Negative (Negative) Urine Urobilinogen <2.0 (<2.0) mg/dL Ur Leukocyte Esterase Negative (Negative) Influenza Type A (PCR) Not Detected (Not Detectd) Influenza Type B (PCR) Not Detected (Not Detectd) RSV (PCR) Not Detected (Not Detectd) SARS-CoV-2 (PCR) Not Detected (Not Detectd) Group A Strep (PCR) NOT DETECTED (Not Detectd) - EKG Data -: EKG Interpreted by Me EKG Comments: EKG taken at 8: 48 showing sinus tachycardia. No acute ST segment or T wave abnormalities. Ventricular rate 113, TX interval 124, QRS duration 84, QT/QTc 346/413. - Radiology Data Radiology results: report reviewed, image reviewed Disposition Clinical Impression: Metastatic adenocarcinoma to breast, Fever of unknown origin Disposition: ADMITTED IP TO THIS HOSP Condition: Stable Referrals: Prince Simmons MD [Primary Care Provider] - 1-2 days Time of Disposition: 11:45
[2024-06-16] MEDS: SODIUM CHLORIDE 0.9% 1,000 ML IV STA (09:12)
[2024-06-16] MEDS: ONDANSETRON 4 MG/2 ML VIAL IVP STA (09:13)
[2024-06-16] MEDS: HYDROmorphone 1 MG/ML 1 ML SYRINGE IVP STA ×2 (09:15→10:43)
[2024-06-16] MEDS: ACETAMINOPHEN TAB 500 MG TAB PO STA (09:16)
[2024-06-16 09:25] LABS: Basophils % (A) 0 %; Eosinophils # (A) 0.1 k/uL (0-0.7); Eosinophils % (A) 1 %; HCT 34.2 % (34.0-46.0); HGB 10.8 gm/dL (11.4-16.0); Hypochromasia Slight; Lymphocytes # (A) 1.1 k/uL (1.0-4.8); Lymphocytes % (A) 10 %; MCH 29.9 pg (25.0-35.0); MCHC 31.4 g/dL (31.0-37.0); MCV 95.1 fL (80.0-100.0); Mean Platelet Volume 6.7; Monocytes # (A) 0.5 k/uL (0-1.0); Monocytes % (A) 5 %; Neutrophils # (A) 9.6 k/uL (1.3-7.7); Neutrophils % (A) 83 %; Platelet Count 244 k/uL (150-450); RDW 15.5 % (11.5-15.5); WBC 11.6 k/uL (3.8-10.6)
[2024-06-16 09:29] LABS: ALT 23 U/L (4-34); AST 31 U/L (14-36); African American GFR (CKD) >90 (>60 ml/min/1.73 sqM); Albumin 3.8 g/dL (3.5-5.0); Alkaline Phosphatase 164 U/L (38-126); Anion Gap 7 mmol/L; Blood Urea Nitrogen 9 mg/dL (7-17); Carbon Dioxide 25 mmol/L (22-30); Chloride 103 mmol/L (98-107); Glucose 133 mg/dL (74-99); Non-African American GFR(CKD) >90 (>60 ml/min/1.73 sqM); Potassium 4.2 mmol/L (3.5-5.1); Sodium 135 mmol/L (137-145); Total Bilirubin 0.4 mg/dL (0.2-1.3); Total Protein 6.1 g/dL (6.3-8.2)
--- NOTE | 2024-06-16 09:38 | XR ---
EXAMINATION TYPE: XR chest 2V DATE OF EXAM: 06/16/2024 COMPARISON: 09/07/2023 CLINICAL INDICATION: Female, 44 years old with history of fever cough; , TECHNIQUE: XR chest 2V views of the chest. FINDINGS: A right lower lobe consolidation and small effusion. Surgical clips overlying the right lower chest a nd upper abdomen. Surgical clips overlying the left chest and axilla. Mediport catheter seen with the tip overlying the SVC. No sizable pneumothorax. Left lung is clear. IMPRESSION: 1. Elevated right hemidiaphragm with small right pleural effusion stable. 2. No new acute infiltrate. [facility], , 06/16/2024 9:36 AM
[2024-06-16] MEDS: IBUPROFEN 800 MG TAB PO STA (10:15)
[2024-06-16 11:14] LABS: Appearance,Urine Clear (Clear); Bilirubin,Urine Negative (Negative); Blood,Urine Negative (Negative); Color,Urine Colorless; Glucose,Urine (UA) Negative (Negative); Ketones,Urine Negative (Negative); Leukocyte Esterase,Urine Negative (Negative); Nitrite,Urine Negative (Negative); Protein,Urine Negative (Negative); Specific Gravity,Urine 1.008 (1.001-1.035); Urobilinogen,Urine <2.0 mg/dL (<2.0)
[2024-06-16] MEDS ORDERED: VANCOMYCIN IV PER PHARMACY 1 EACH MISC MISCELLANE PRN (11:29)
[2024-06-16] MEDS ORDERED: NALOXONE 0.4 MG/ML 1 ML VIAL IV PRN (11:43)
[2024-06-16] MEDS: CEFEPIME 2 GM in SODIUM CHLORIDE 0.9% 100 ML IVPB STA ×2 (12:08→12:10)
[2024-06-16] MEDS: SODIUM CHLORIDE 0.9% 1,000 ML IV SCH (12:10)
[2024-06-16] MEDS: VANCOMYCIN 1,750 MG in SODIUM CHLORIDE 0.9% 500 ML 500 ML IVPB ONE (12:38)
[2024-06-16] MEDS ORDERED: ONDANSETRON ODT 8 MG TAB.RAPDIS PO PRN (12:47)
[2024-06-16] MEDS ORDERED: OLANZapine 7.5 MG TAB PO SCH (13:00)
[2024-06-16] MEDS: HYDROmorphone 1 MG/ML 1 ML SYRINGE IVP PRN (14:44)
--- NOTE | 2024-06-16 14:48 | P.HPIM ---
History of Present Illness H&P Date: 06/16/24 This is a 44-year-old female with past medical history of metastatic breast cancer status post bilateral mastectomy, currently on chemotherapy, last chemotherapy session 06/10/2024 followed by [facility] the next day presents emergency department with fever at home of 101 Fahrenheit. Patient states that she feels rundown, she is having some light cough, mild mucus/sputum production, denies any runny nose. She states that her daughter was sick with mono approximately 2 to 3 weeks ago, she is almost fully healed however she still has some residual fatigue. Patient denies any sore throat at this time. No other sick contacts, no recent travel. She currently has a fentanyl patch that is due for change and she takes Dilaudid at home. She states that she does not want the fentanyl patch while she is admitted to the hospital, prefers to only be on oral Dilaudid. White count was elevated at 11K, chest x-ray was performed, no acute findings. Absolute neutrophils were elevated. Review of Systems 14 point review system performed, all negative except pertinent positives in HPI Past Medical History Past Medical History: Cancer Additional Past Medical History / Comment(s): breast cancer History of Any Multi-Drug Resistant Organisms: None Reported Past Surgical History: Breast Surgery, Section, Hysterectomy Additional Past Surgical History / Comment(s): double mastectomy Past Psychological History: ADD/ADHD, Anxiety, Depression Smoking Status: Never smoker Past Alcohol Use History: Occasional Past Drug Use History: None Reported Medications and Allergies Home Medications Medication Instructions Recorded Confirmed Type Apixaban [Eliquis] 5 mg PO BID 09/07/23 06/16/24 History Dicyclomine [Bentyl] 20 mg PO BID 09/07/23 06/16/24 History FLUoxetine HCL [Sarafem] 60 mg PO DAILY 09/07/23 06/16/24 History HYDROmorphone [Dilaudid] 4 mg PO Q4H PRN 09/07/23 06/16/24 History Ondansetron Odt [Zofran ODT] 8 mg PO Q6H PRN 09/07/23 06/16/24 History Temazepam 22.5 mg PO HS 09/07/23 06/16/24 History fentaNYL 25MCG/HR PATCH [Duragesic 1 patch TRANSDERM Q72H 09/07/23 06/16/24 History 25MCG/HR] LORazepam [Ativan] 1 mg PO Q4H PRN 06/16/24 06/16/24 History Mirtazapine 30 mg PO HS 06/16/24 06/16/24 History OLANZapine [ZyPREXA] 7.5 mg PO DIRECTED 06/16/24 06/16/24 History Pegfilgrastim [Neulasta] 6 mg SQ Q28D 06/16/24 06/16/24 History fentaNYL 12MCG/HR PATCH [Duragesic 1 patch TRANSDERM Q72H 06/16/24 06/16/24 History 12MCG/HR] Allergies Allergy/AdvReac Type Severity Reaction Status Date / Time [facility]ib [[facility] Allergy Rash/Hives Verified 06/16/24 09:48 Iodinated Contrast Media Allergy Rash/Hives Verified 06/16/24 09:48 [Iodinated Contrast- Oral and IV Dye] Physical Exam Vitals: Vital Signs Temp Pulse Pulse Resp BP BP Pulse Ox 06/16/24 14:22 98.3 F 106 H 18 114/72 89 L 06/16/24 13:42 97.0 F L 98 18 98/64 95 06/16/24 12:18 98.9 F 06/16/24 11:17 101.6 F H 108 H 18 119/69 06/16/24 10:47 113 H 18 96/77 06/16/24 10:07 100.8 F H 111 H 18 93/79 06/16/24 09:35 112 H 18 99/72 95 06/16/24 08:25 99.9 F H 121 H 20 115/69 96 Intake and Output 06/15/24 06/16/24 06/16/24 22:59 06:59 14:59 Other: Weight 95.254 kg General: Appears acutely ill, no acute distress Derm: [warm], [dry] Head: [atraumatic], [normocephalic], [symmetric] Eyes: [EOMI], [no lid lag], [anicteric sclera] Mouth: [no lip lesion], [mucus membranes moist] Cardiovascular: [S1S2 reg], [no murmur], [positive posterior tibial pulse bilateral], Lungs: Coarse lung sounds bilaterally, rhonchi heard in both lung gómez Abdominal: [soft], [ nontender to palpation], [no guarding], [no appreciable organomegaly] Ext: [no gross muscle atrophy], [no edema], [no contractures] Neuro: [ CN II-XI grossly intact], [no focal neuro deficits] Psych: [Alert], [oriented], [appropriate affect] Results CBC & Chem 7: 06/16/24 09:04 06/16/24 09:04 Labs: Abnormal Lab Results - Last 24 Hours (Table) 06/16/24 06/16/24 Range/Units 09:04 09:04 WBC 11.6 H (3.8-10.6) k/uL RBC 3.60 L (3.80-5.40) m/uL Hgb 10.8 L (11.4-16.0) gm/dL Neutrophils # 9.6 H (1.3-7.7) k/uL Sodium 135 L (137-145) mmol/L Glucose 133 H (74-99) mg/dL Alkaline Phosphatase 164 H (38-126) U/L Total Protein 6.1 L (6.3-8.2) g/dL Assessment and Plan Plan: Sepsis, elevated WBC, tachycardia, unclear source at this time, possible early onset bacterial pneumonia? Sinus tachycardia Leukocytosis secondary to above Metastatic breast cancer, currently on chemotherapy Fever of unknown origin, likely secondary to above Given patient's immunocompromise state, will admit patient for sepsis Differential diagnosis at this time would be early onset bacterial pneumonia No obvious infiltrate noted on chest x-ray Started patient on vancomycin and cefepime Consult placed to infectious disease given complexity of the patient Consult also placed to hematology oncology for follow-up Possible low-grade fevers likely due to recent chemotherapy as well as Neupogen injection but given patient's complaining of respiratory symptoms, leaning more towards infectious etiology No concerns for urinary infection, denies any burning, pressure during urination Urinalysis also negative at this time Continue Eliquis Resume remaining home medications Okay to restart Dilaudid p.o. for pain control Hold fentanyl patches at this time admitted
--- NOTE | 2024-06-16 15:52 | P.CONS ---
History of Present Illness - Reason for Consult Consult date: 06/16/24 fever, on Mab Requesting physician: Aliya Edwards - Chief Complaint fever, cough - History of Present Illness Mrs. Maurer is a 44-year-old female with metastatic triple negative breast cancer, treated at [facility]. She has been on treatment with monoclonal antibody Sacituzumab for over a year, started April of last year. Patient reports that she has continued to do very well on the same, receiving a treatment just last with GCSF. About 5 days after her treatment though, she started to experience fevers, sore throat, feels like "needles" when she swallows, mostly nonproductive cough, some dizziness. Appetite is down as she cannot swallow. She denies ear pain, nausea, vomiting, dysuria, diarrhea or constipation. No other pain to report. Chest x-ray showing right lower lobe consolidation and a small effusion, no new acute infiltrate, WBCs mildly elevated 11.6, ANC 9.6. Hemoglobin 10.8, platelet count 244,000. Mildly zach vated alk phos at 164, kidney function within normal limits, urinary analysis unremarkable, viral panel negative. Patient does report though that her daughter was recently diagnosed with mono Review of Systems 10 point ROS is neg except as stated in HPI Past Medical History Past Medical History: Cancer, Deep Vein Thrombosis (DVT), Pneumonia Additional Past Medical History / Comment(s): left breast cancer 2014, left leg dvt- eliquis, liver mets 2021, bones mets 2023 History of Any Multi-Drug Resistant Organisms: None Reported Past Surgical History: Breast Surgery, Section, Hysterectomy Additional Past Surgical History / Comment(s): double mastectomy, liver resection 2021, bile duct repair x10 surgeries Additional Past Anesthesia/Blood Transfusion Reaction / Comm: na Past Psychological History: ADD/ADHD, Anxiety, Depression Smoking Status: Never smoker Past Alcohol Use History: Occasional Past Drug Use History: None Reported - Past Family History Father Family Medical History: Deep Vein Thrombosis (DVT), Hyperlipidemia, Hypertension Mother Additional Family Medical History / Comment(s): osteoporosis, glaucoma Medications and Allergies Home Medications Medication Instructions Recorded Confirmed Type Apixaban [Eliquis] 5 mg PO BID 09/07/23 06/16/24 History Dicyclomine [Bentyl] 20 mg PO BID 09/07/23 06/16/24 History FLUoxetine HCL [Sarafem] 60 mg PO DAILY 09/07/23 06/16/24 History HYDROmorphone [Dilaudid] 4 mg PO Q4H PRN 09/07/23 06/16/24 History Ondansetron Odt [Zofran ODT] 8 mg PO Q6H PRN 09/07/23 06/16/24 History Temazepam 22.5 mg PO HS 09/07/23 06/16/24 History fentaNYL 25MCG/HR PATCH [Duragesic 1 patch TRANSDERM Q72H 09/07/23 06/16/24 History 25MCG/HR] LORazepam [Ativan] 1 mg PO Q4H PRN 06/16/24 06/16/24 History Mirtazapine 30 mg PO HS 06/16/24 06/16/24 History OLANZapine [ZyPREXA] 7.5 mg PO DIRECTED 06/16/24 06/16/24 History Pegfilgrastim [Neulasta] 6 mg SQ Q28D 06/16/24 06/16/24 History fentaNYL 12MCG/HR PATCH [Duragesic 1 patch TRANSDERM Q72H 06/16/24 06/16/24 History 12MCG/HR] Allergies Allergy/AdvReac Type Severity Reaction Status Date / Time alpelisib [From Piqray] Allergy Rash/Hives Verified 06/16/24 09:48 Iodinated Contrast Media Allergy Rash/Hives Verified 06/16/24 09:48 [Iodinated Contrast- Oral and IV Dye] Physical Exam Vitals: Vital Signs Temp Pulse Pulse Resp BP BP Pulse Ox 06/16/24 14:22 98.3 F 106 H 18 114/72 89 L 06/16/24 13:42 97.0 F L 98 18 98/64 95 06/16/24 12:18 98.9 F 06/16/24 11:17 101.6 F H 108 H 18 119/69 06/16/24 10:47 113 H 18 96/77 06/16/24 10:07 100.8 F H 111 H 18 93/79 06/16/24 09:35 112 H 18 99/72 95 06/16/24 08:25 99.9 F H 121 H 20 115/69 96 Intake and Output 06/16/24 06/16/24 06/16/24 06:59 14:59 22:59 Other: Weight 95.254 kg 95.254 kg - Constitutional General appearance: cooperative, mild distress, obese - EENT Eyes: anicteric sclerae, EOMI ENT: hearing grossly normal, normal oropharynx - Neck Neck: no lymphadenopathy - Respiratory Respiratory: right: diminished, left: CTA, bilateral: other (very congested cough) - Cardiovascular Rhythm: regular Heart sounds: normal: S1, S2 Abnormal Heart Sounds: no systolic murmur, no diastolic murmur, no rub, no S3 Gallop, no S4 Gallop, no click, no other leg Peripheral Edema: bilateral: None - Gastrointestinal General gastrointestinal: no absent bowel sounds, no decreased bowel sounds, no distended, no hepatomegaly, no hyperactive bowel sounds, normal bowel sounds, no organomegaly, no rigid, no scaphoid, soft, no splenomegaly, tenderness, no umbilical hernia, no ventral hernia - Integumentary Integumentary: normal - Neurologic Neurologic: CNII-XII intact - Musculoskeletal Musculoskeletal: generalized weakness, strength equal bilaterally - Psychiatric Psychiatric: A&O x's 3, appropriate affect, intact judgment & insight Results CBC & Chem 7: 06/16/24 09:04 06/16/24 09:04 Labs: Abnormal Lab Results - Last 24 Hours (Table) 06/16/24 06/16/24 Range/Units 09:04 09:04 WBC 11.6 H (3.8-10.6) k/uL RBC 3.60 L (3.80-5.40) m/uL Hgb 10.8 L (11.4-16.0) gm/dL Neutrophils # 9.6 H (1.3-7.7) k/uL Sodium 135 L (137-145) mmol/L Glucose 133 H (74-99) mg/dL Alkaline Phosphatase 164 H (38-126) U/L Total Protein 6.1 L (6.3-8.2) g/dL Chest x-ray: report reviewed Assessment and Plan (1) Fever of unknown origin Current Visit: Yes Status: Acute Priority: High Code(s): R50.9 - FEVER, UNSPECIFIED SNOMED Code(s): 2927861 (2) Metastatic adenocarcinoma to breast Current Visit: No Status: Chronic Priority: Medium Code(s): C79.81 - S ECONDARY MALIGNANT NEOPLASM OF BREAST SNOMED Code(s): 243138010909101 (3) Leukocytosis Current Visit: Yes Status: Acute Priority: Medium Code(s): D72.829 - ELEVATED WHITE BLOOD CELL COUNT, UNSPECIFIED SNOMED Code(s): 944328008 Plan: Fever of unknown origin -Tmax since admission 101.6F. Symptoms consistent with an upper respiratory type infection. Viral panel so far negative, chest x-ray right lower lobe consolidation. -Pancultures pending. Empiric antibiotics initiated. -Patient reports that her daughter was recently diagnosed with mononucleosis, EBV panel ordered. -Ig levels ordered Triple negative breast cancer -Patient has been on monoclonal antibody therapy since April of last year. Last treatment was last week. Patient reports she has been doing well. -Most recent treatment last week. -Cont f/u with Medical Oncologist as planned Mild leukocytosis May be related to G-CSF, may be related to infection. Nothing unusual at this time. Continue to monitor while inpatient. Mild anemia -Most likely related to chemotherapy. Mild. No transfusions or other work up at this time
[2024-06-16] MEDS: ONDANSETRON 4 MG/2 ML VIAL IVP PRN (17:47)
[2024-06-16] MEDS: APIXABAN 5 MG TAB PO SCH (21:01)
[2024-06-16] MEDS: DICYCLOMINE 20 MG TAB PO SCH (21:01)
[2024-06-16] MEDS: MIRTAZAPINE 15 MG TAB PO SCH (21:01)
[2024-06-16] MEDS: guaiFENesin-Coden 100-10MG/5ML 10 ML CUP PO PRN (21:10)
[2024-06-16] MEDS: TEMAZEPAM 7.5 MG CAP PO SCH (21:11)
[2024-06-16] MEDS: FLUoxetine HCL 20 MG CAP PO SCH (21:49)
[2024-06-16] MEDS: VANCOMYCIN 1,500 MG in SODIUM CHLORIDE 0.9% 500 ML 500 ML IVPB SCH (21:51)
[2024-06-17] MEDS: IBUPROFEN 400 MG TAB PO PRN (02:09)
[2024-06-17 06:16] LABS: EBV-EA (IgG) <0.2 AI; EBV-EBNA(IgG) >8.0; EBV-VCA (IgG) >8.0 AI; EBV-VCA (IgM) <0.2 AI
--- NOTE | 2024-06-17 06:58 | P.CONS ---
History of Present Illness - Reason for Consult Consult date: 06/16/24 Immunocompromised patient with fever Requesting physician: Lisandro Díaz - Chief Complaint Fever congestion cough x 1 day - History of Present Illness Patient is a 44-year-old female with a past medical history significant for breast cancer ADHD anxiety depression patient has been on chemotherapy through the right chest wall Mediport for about a year last kristal motherapy on 06/10/2024 presenting to the hospital for evaluation of fever sore throat and congestion that has been going on for about 24 hours patient denies significant headache has been complaining of cough which has been moderate intensity but not bringing up some sputum did have a central chest pain mostly sharp and burning without radiation did have some nausea but no vomiting no abdominal pain no diarrhea rather constipated no bowel movement over the last 3 days no urinary symptoms patient on presentation to hospital did have low-grade fever subsequently spiked a fever of 101.6 degrees warm hide patient was tachycardic but not hypotensive mildly hypoxic on 2 L nasal cannula oxygen pat ient did have white count of 11.6 with a left shift creatinine was normal electrolytes are normal liver isms are normal urine has been negative patient tested negative for influenza RSV and COVID chest x-ray elevated right hemidiaphragm small right effusion stable no acute infiltrate patient did rec eived dose of cefepime started on vancomycin and admitted the hospital infectious disease was consulted for further management of antibiotic therapy Review of Systems Positive point and negatives has been mentioned in the HPI, complete review of systems was performed and all other systems are negative Past Medical History Past Medical History: Cancer Additional Past Medical History / Comment(s): breast cancer History of Any Multi-Drug Resistant Organisms: None Reported Past Surgical History: Breast Surgery, Section, Hysterectomy Additional Past Surgical History / Comment(s): double mastectomy Past Psychological History: ADD/ADHD, Anxiety, Depression Smoking Status: Never smoker Past Alcohol Use History: Occasional Past Drug Use History: None Reported - Past Family History Father Family Medical History: Deep Vein Thrombosis (DVT), Hyperlipidemia, Hypertension Mother Additional Family Medical History / Comment(s): osteoporosis, glaucoma Medications and Allergies Home Medications Medication Instructions Recorded Confirmed Type Apixaban [Eliquis] 5 mg PO BID 09/07/23 06/16/24 History Dicyclomine [Bentyl] 20 mg PO BID 09/07/23 06/16/24 History FLUoxetine HCL [Sarafem] 60 mg PO DAILY 09/07/23 06/16/24 History HYDROmorphone [Dilaudid] 4 mg PO Q4H PRN 09/07/23 06/16/24 History Ondansetron Odt [Zofran ODT] 8 mg PO Q6H PRN 09/07/23 06/16/24 History Temazepam 22.5 mg PO HS 09/07/23 06/16/24 History fentaNYL 25MCG/HR PATCH [Duragesic 1 patch TRANSDERM Q72H 09/07/23 06/16/24 History 25MCG/HR] LORazepam [Ativan] 1 mg PO Q4H PRN 06/16/24 06/16/24 History Mirtazapine 30 mg PO HS 06/16/24 06/16/24 History OLANZapine [ZyPREXA] 7.5 mg PO DIRECTED 06/16/24 06/16/24 History Pegfilgrastim [Neulasta] 6 mg SQ Q28D 06/16/24 06/16/24 History fentaNYL 12MCG/HR PATCH [Duragesic 1 patch TRANSDERM Q72H 06/16/24 06/16/24 History 12MCG/HR] Allergies Allergy/AdvReac Type Severity Reaction Status Date / Time alpelisib [From Piqray] Allergy Rash/Hives Verified 06/16/24 09:48 Iodinated Contrast Media Allergy Rash/Hives Verified 06/16/24 09:48 [Iodinated Contrast- Oral and IV Dye] Physical Exam Vitals: Vital Signs Temp Pulse Resp BP Pulse Ox 06/16/24 12:18 98.9 F 06/16/24 11:17 101.6 F H 108 H 18 119/69 06/16/24 10:47 113 H 18 96/77 06/16/24 10:07 100.8 F H 111 H 18 93/79 06/16/24 09:35 112 H 18 99/72 95 06/16/24 08:25 99.9 F H 121 H 20 115/69 96 Intake and Output 06/15/24 06/16/24 06/16/24 22:59 06:59 14:59 Other: Weight 95.254 kg GENERAL DESCRIPTION: Middle-aged female lying in bed, no distress. No tachypnea or accessory muscle of respiration use. HEENT: Shows Pallor , no scleral icterus. Oral mucous membrane is dry. NECK: Trachea central, no thyromegaly. LUNGS: Unlabored breathing. Decreased breath sound at the base HEART: S1, S2, regular rate and rhythm. No loud murmur ABDOMEN: Soft, no tenderness , guarding or rigidity, no organomegaly EXTREMITIES: No edema of feet. SKIN: No rash, no masses palpable. NEUROLOGICAL: The patient is awake, alert, oriented x3, mood and affect normal. Results CBC & Chem 7: 06/16/24 09:04 06/16/24 09:04 Labs: Abnormal Lab Results - Last 24 Hours (Table) 06/16/24 06/16/24 Range/Units 09:04 09:04 WBC 11.6 H (3.8-10.6) k/uL RBC 3.60 L (3.80-5.40) m/uL Hgb 10.8 L (11.4-16.0) gm/dL Neutrophils # 9.6 H (1.3-7.7) k/uL Sodium 135 L (137-145) mmol/L Glucose 133 H (74-99) mg/dL Alkaline Phosphatase 164 H (38-126) U/L Total Protein 6.1 L (6.3-8.2) g/dL Assessment and Plan (1) Sepsis Current Visit: Yes Status: Acute Code(s): A41.9 - SEPSIS, UNSPECIFIED ORGANISM SNOMED Code(s): 50189940 (2) Pneumonia Current Visit: Yes Status: Acute Code(s): J18.9 - PNEUMONIA, UNSPECIFIED ORGANISM SNOMED Code(s): 644014352 Plan: 1patient presented to hospital with sepsis in this patient who did have fever elevated white count tachycardia meeting criteria for SIRS source possible pneumonia as the patient did have predominantly respiratory symptoms with a question of community-acquired versus more resistant gram-negative pneumonia patient also have a port last use on 06/10/2024 will be the source of this fever as well 2-blood culture has been obtained we will obtain sputum for Gram stain culture check a procalcitonin level 3-vancomycin pharmacy to dose target trough of 15 while watching kidney function and Vanco trough closely will add cefepime while waiting for the culture to finalize We will follow on clinical condition and cultures to further adjust medication if needed Thank you for this consultation we will follow the patient along with you Dictation was produced using combionication software. please excuse any grammatical, word or spelling errors.
[2024-06-17] MEDS: CEFEPIME 2 GM in SODIUM CHLORIDE 0.9% 100 ML IVPB SCH ×2 (08:18→21:14)
[2024-06-17] MEDS ORDERED: FLUoxetine HCL 20 MG CAP PO SCH ×2 (09:00→21:00)
--- NOTE | 2024-06-17 12:16 | P.PN ---
Subjective Progress Note Date: 06/17/24 Patient feels better, although she still still has significant generalized weakness and malaise. Fever pattern is better, with Tmax today of 100.7. She is having some nonspecific diffuse abdominal pain, but no diarrhea, nausea or vomiting. Objective - Vital Signs Vital signs: Vital Signs Temp 100.7 F H 06/17/24 12:08 Pulse 123 H 06/17/24 12:08 Resp 17 06/17/24 12:08 BP 114/60 06/17/24 12:08 Pulse Ox 93 L 06/17/24 12:08 FiO2 Intake & Output 06/16/24 06/17/24 06/17/24 18:59 06:59 18:59 Intake Total 240 Balance 240 Weight 95.254 kg Intake: Oral 240 Other: # Voids 1 # Bowel Movements 0 # Emeses 0 - Constitutional General appearance: Present: mild distress - EENT Eyes: Present: EOMI ENT: Present: hearing grossly normal, normal oropharynx - Respiratory Respiratory: bilateral: CTA - Cardiovascular Rhythm: regular Heart sounds: normal: S1, S2 - Gastrointestinal General gastrointestinal: Present: soft Localized gastrointestinal: tender: diffuse (Mild, patchy, nonspecific) - Integumentary Integumentary: Present: normal - Neurologic Neurologic: Present: CNII-XII intact - Musculoskeletal Musculoskeletal: Present: generalized weakness, strength equal bilaterally - Psychiatric Psychiatric: Present: A&O x's 3, appropriate affect - Labs CBC & Chem 7: 06/16/24 09:04 06/16/24 09:04 Labs: Abnormal Lab Results - Last 24 Hours (Table) 06/16/24 Range/Units 09:04 EBV Capsid Ag IgG Intrp Positive A (Negative) EBV Nuc Ag IgG Interp Positive A (Negative) Assessment and Plan (1) Fever of unknown origin Narrative/Plan: This is felt to be most likely infectious in origin, given acute onset of symptoms. The patient has been on the same regimen now for several months, and therefore treatment related effect is unlikely. Infection workup negative so far. ID is following, and the patient is on treatment for them. Fever pattern has improved. Continue current management per ID Current Visit: Yes Status: Acute Priority: High Code(s): R50.9 - FEVER, UNSPECIFIED SNOMED Code(s): 2693071 (2) Metastatic adenocarcinoma to breast Narrative/Plan: Treatment on hold till acute condition resolves Current Visit: No Status: Chronic Priority: Medium Code(s): C79.81 - SECONDARY MALIGNANT NEOPLASM OF BREAST SNOMED Code(s): 915363208144305 Plan: Continue to monitor blood counts. The patient has received PEG G-CSF with her chemo 1 week ago, and WBC on presentation was 11.6. It is unlikely that there will be decline at this time.
--- NOTE | 2024-06-17 13:18 | P.PN ---
Subjective Progress Note Date: 06/17/24 Principal diagnosis: Reason for follow-up is fever Patient is a 44-year-old female with a past medical history significant for breast cancer ADHD anxiety depression patient has been on chemotherapy through the right chest wall Mediport for about a year last chemotherapy on 06/10/2024 presenting to the hospital for evaluation of fever sore throat and congestion, patient did have a chest x-ray with elevated hemidiaphragm small joint effusion white count of 11.6 on initial workup. On today's evaluation that is 06/17/2024,the patient did have improving her fever pattern did have low-grade fever 100.7 at noon. Patient mention feeling slightly better patient denies having any chest pain currently have a cough but not bringing up any sputum has been complaining of p ain to the right side of the abdominal area no nausea vomiting or diarrhea. No new lab has been obtained today cultures are currently pending Objective - Vital Signs Vital signs: Vital Signs Temp 100.7 F H 06/17/24 12:08 Pulse 123 H 06/17/24 12:08 Resp 17 06/17/24 12:08 BP 114/60 06/17/24 12:08 Pulse Ox 93 L 06/17/24 12:08 FiO2 Intake & Output 06/16/24 06/17/24 06/17/24 18:59 06:59 18:59 Intake Total 240 Balance 240 Weight 95.254 kg Intake: Oral 240 Other: # Voids 1 # Bowel Movements 0 # Emeses 0 - Exam GENERAL DESCRIPTION: Middle-age female lying in bed in no distress RESPIRATORY SYSTEM: Unlabored breathing , decreased breath sounds at bases HEART: S1 S2 regular rate and rhythm , ABDOMEN: Soft , right-sided tenderness EXTREMITIES: No edema feet - Labs CBC & Chem 7: 06/16/24 09:04 06/16/24 09:04 Labs: Abnormal Lab Results - Last 24 Hours (Table) 06/16/24 Range/Units 09:04 EBV Capsid Ag IgG Intrp Positive A (Negative) EBV Nuc Ag IgG Interp Positive A (Negative) Assessment and Plan (1) Sepsis Current Visit: Yes Status: Acute Code(s): A41.9 - SEPSIS, UNSPECIFIED ORGANISM SNOMED Code(s): 26475956 (2) Pneumonia Current Visit: Yes Status: Acute Code(s): J18.9 - PNEUMONIA, UNSPECIFIED ORGANISM SNOMED Code(s): 626967333 Plan: 1patient presented to hospital with sepsis in this patient who did have fever elevated white count tachycardia meeting criteria for SIRS source possible pneumonia as the patient did have predominantly respiratory symptoms with a question of community-acquired versus more resistant gram-negative pneumonia patient also have a port last use on 06/10/2024 will be the source of this fever as well 2-blood culture has been obtained which are currently pending 3-patient did have tenderness to right side abdominal area we will check a CT of abdominal pelvis with oral contrast only because of her iodinated contrast media allergy to rule out any intra-abdominal pathology 4for now continue cefepime and vancomycin while waiting for the workup to be completed Dictation was produced using [employer] dictation software. please excuse any grammatical, word or spelling errors. Time with Patient: Less than 30
[2024-06-17] MEDS: ACETAMINOPHEN TAB 325 MG TAB PO PRN (13:21)
[2024-06-17] MEDS: BARIUM SULFATE 2% - 450 ML ORAL.SUSP BOTTLE PO PRN (13:21)
--- NOTE | 2024-06-17 13:26 | P.PN ---
Subjective Progress Note Date: 06/17/24 Principal diagnosis: Sepsis The patient is a 44 y.o female with a history of metastatic breast cancer s/p bilateral mastectomy last chemo 06/10/24. The patient is currently on Vancomycin and Cefepime Objective - Vital Signs Vital signs: Vital Signs Temp 100.7 F H 06/17/24 12:08 Pulse 123 H 06/17/24 12:08 Resp 17 06/17/24 12:08 BP 114/60 06/17/24 12:08 Pulse Ox 93 L 06/17/24 12:08 FiO2 Intake & Output 06/16/24 06/17/24 06/17/24 18:59 06:59 18:59 Intake Total 240 Balance 240 Weight 95.254 kg Intake: Oral 240 Other: # Voids 1 # Bowel Movements 0 # Emeses 0 - Constitutional Constitutional Comment(s): mild distress secondary to pain - Respiratory Respiratory: bilateral: diminished - Cardiovascular Rhythm: regular - Gastrointestinal General gastrointestinal: Present: normal bowel sounds - Psychiatric Psychiatric: Present: A&O x's 3, appropriate affect - Labs CBC & Chem 7: 06/16/24 09:04 06/16/24 09:04 Labs: Abnormal Lab Results - Last 24 Hours (Table) 06/16/24 Range/Units 09:04 EBV Capsid Ag IgG Intrp Positive A (Negative) EBV Nuc Ag IgG Interp Positive A (Negative) Assessment and Plan (1) Fever of unknown origin Narrative/Plan: Immunocompromised continue to monitor closely Current Visit: Yes Status: Acute Priority: High Code(s): R50.9 - FEVER, UNSPECIFIED SNOMED Code(s): 6649464 (2) Metastatic adenocarcinoma to breast Narrative/Plan: Patient continues to have pain. Last chemo 06/10/24, will continue to hold Fentanyl patches. Will increase the frequency of IV Dilaudid for now Current Visit: No Status: Chronic Priority: Medium Code(s): C79.81 - SECONDARY MALIGNANT NEOPLASM OF BREAST SNOMED Code(s): 554503867893487 (3) Sepsis Current Visit: Yes Status: Acute Code(s): A41.9 - SEPSIS, UNSPECIFIED ORGANISM SNOMED Code(s): 87932583 (4) Pneumonia Narrative/Plan: Continue IV antibiotics Current Visit: Yes Status: Acute Code(s): J18.9 - PNEUMONIA, UNSPECIFIED ORGANISM SNOMED Code(s): 091821455 Plan: Continue IV antibiotics with Vancomycin and Cefepime . Appreciate ID consult optimize pain control
[2024-06-17] MEDS: HYDROmorphone 1 MG/ML 1 ML SYRINGE IVP PRN (15:40)
--- NOTE | 2024-06-17 18:11 | CT ---
EXAMINATION TYPE: CT abdomen pelvis wo con DATE OF EXAM: 06/17/2024 5:47 PM COMPARISON: Prior CT studies, most recently dated 04/09/2021. CLINICAL INDICATION: Female, 44 years old with history of Fever right upper quadrant pain; abdominal pain, fever TECHNIQUE: Axial CT abdomen pelvis wo con;Sagittal and coronal reformats were created on a separate workstation. Oral contrast used: with Oral Contrast (none if empty) CT DLP: 1187.7 mGycm, Automated exposure control for dose reduction was used. FINDINGS: LOWER CHEST: Patchy right lower lobe opacity suspicious for pneumonia. ABDOMEN LIVER: Diffusely hypoattenuating parenchyma. Post surgical changes suggesting previous partial right hepatectomy. GALLBLADDER AND BILE DUCTS: The gallbladder is surgically absent. PANCREAS: Unremarkable. SPLEEN: Unremarkable. ADRENAL GLANDS: Unremarkable. KIDNEYS AND URETERS: No evidence of hydronephrosis or renal calculus. The ureters are unremarkable. PELVIS BLADDER: No evidence for wall thickening or mass given limitations of exam. REPRODUCTIVE: Unremarkable. ABDOMEN & PELVIS STOMACH AND BOWEL: Stomach and duodenum are unremarkable No evidence of bowel obstruction. PERITONEUM/RETROPERITONEUM: No evidence of pneumoperitoneum or free fluid. VASCULATURE: No evidence of aortic aneurysm. MUSCULOSKELETAL: Extensive sclerotic lesions throughout the visualized axial and appendicular skeleto n, new from prior studies. For example, largest sclerotic lesion along the inferior margin of L2 vert ebral body. Partially visualized sclerotic lesions in the thoracic spine, most pronounced at T9-T10. Sclerotic lesions in the sacrum and bilateral iliac bones. LYMPH NODES: No gross evidence for lymphadenopathy. SOFT TISSUE/ABDOMINAL WALL: Peripherally enhancing fluid collection in the mid anterior abdominal wal l measuring 5.6 x 1.5 x 7.9 cm. IMPRESSION: 1. Partially visualized patchy consolidative opacities in the right lower lobe suspicious for pneumo adilson in appropriate clinical setting. 2. Peripherally enhancing midline anterior abdominal wall fluid collection measuring 5.6 x 1.5 x 7.9 cm. 3. Extensive sclerotic lesions throughout the visualized axial and appendicular skeleton highly susp icious for osseous metastatic disease. [facility], , 06/17/2024 6:09 PM
[2024-06-18] MEDS: VANCOMYCIN TROUGH DUE 1 EACH MISC MISCELLANE ONE (05:29)
[2024-06-18 06:05] LABS: African American GFR (CKD) >90 (>60 ml/min/1.73 sqM); Non-African American GFR(CKD) >90 (>60 ml/min/1.73 sqM)
[2024-06-18] MEDS: HYDROmorphone 2 MG TAB PO PRN (09:43)
[2024-06-18 10:20] LABS: Basophils # (A) 0.03 X 10*3/uL (0.00-0.10); Basophils % (A) 0.3 %; Eosinophils % (A) 1.8 %; HCT 29.4 % (37.2-46.3); Lymphocytes # (A) 1.28 X 10*3/uL (0.90-5.00); Lymphocytes % (A) 11.5 %; MCH 30.8 pg (27.0-32.0); MCHC 30.6 g/dL (32.0-37.0); MCV 100.7 FL (80.0-97.0); Mean Platelet Volume 9.6 FL (9.5-12.2); Monocytes # (A) 0.83 X 10*3/uL (0.20-1.00); Monocytes % (A) 7.5 %; NRBC Per 100 WBC 0 X 10*3/uL (0.00-0.01); Neutrophils # (A) 8.57 X 10*3/uL (1.80-7.70); Neutrophils % (A) 77.2 %; Platelet Count 198 X 10*3/uL (140-440); RBC 2.92 X 10*6/uL (4.10-5.20); Toxic Granulation 2+
--- NOTE | 2024-06-18 11:03 | P.PN ---
Subjective History of Present Illness H&P Date: 06/16/24 This is a 44-year-old female with past medical history of metastatic breast cancer status post bilateral mastectomy, currently on chemotherapy, last chemotherapy session 06/10/2024 followed by [facility] the next day presents emergency department with fever at home of 101 Fahrenheit. Patient states that she feels rundown, she is having some light cough, mild mucus/sputum production, denies any runny nose. She states that her daughter was sick with mono appro ximately 2 to 3 weeks ago, she is almost fully healed however she still has some residual fatigue. Patient denies any sore throat at this time. No other sick contacts, no recent travel. She currently has a fentanyl patch that is due for change and she takes Dilaudid at home. She states that she does not want the fentanyl patch while she is admitted to the hospital, prefers to only be on oral Dilaudid. White count was elevated at 11K, chest x-ray was performed, no acute findings. Absolute neutrophils were elevated. Review of Systems 14 point review system performed, all negative except pertinent positives in HPI Past Medical History Past Medical History: Cancer Additional Past Medical History / Comment(s): breast cancer History of Any Multi-Drug Resistant Organisms: None Reported Past Surgical History: Breast Surgery, Section, Hysterectomy Additional Past Surgical History / Comment(s): double mastectomy Past Psychological History: ADD/ADHD, Anxiety, Depression Smoking Status: Never smoker Past Alcohol Use History: Occasional Past Drug Use History: None Reported Medications and Allergies Home Medications Medication Instructions Recorded Confirmed Type Apixaban [Eliquis] 5 mg PO BID 09/07/23 06/16/24 History Dicyclomine [Bentyl] 20 mg PO BID 09/07/23 06/16/24 History FLUoxetine HCL [Sarafem] 60 mg PO DAILY 09/07/23 06/16/24 History HYDROmorphone [Dilaudid] 4 mg PO Q4H PRN 09/07/23 06/16/24 History Ondansetron Odt [Zofran ODT] 8 mg PO Q6H PRN 09/07/23 06/16/24 History Temazepam 22.5 mg PO HS 09/07/23 06/16/24 History fentaNYL 25MCG/HR PATCH [Duragesic 1 patch TRANSDERM Q72H 09/07/23 06/16/24 History 25MCG/HR] LORazepam [Ativan] 1 mg PO Q4H PRN 06/16/24 06/16/24 History Mirtazapine 30 mg PO HS 06/16/24 06/16/24 History OLANZapine [ZyPREXA] 7.5 mg PO DIRECTED 06/16/24 06/16/24 History Pegfilgrastim [Neulasta] 6 mg SQ Q28D 06/16/24 06/16/24 History fentaNYL 12MCG/HR PATCH [Duragesic 1 patch TRANSDERM Q72H 06/16/24 06/16/24 History 12MCG/HR] Allergies Allergy/AdvReac Type Severity Reaction Status Date / Time alpelisib [From Pira] Allergy Rash/Hives Verified 06/16/24 09:48 Iodinated Contrast Media Allergy Rash/Hives Verified 06/16/24 09:48 [Iodinated Contrast- Oral and IV Dye] Physical Exam Vitals: Vital Signs Temp Pulse Pulse Resp BP BP Pulse Ox 06/16/24 14:22 98.3 F 106 H 18 114/72 89 L 06/16/24 13:42 97.0 F L 98 18 98/64 95 06/16/24 12:18 98.9 F 06/16/24 11:17 101.6 F H 108 H 18 119/69 06/16/24 10:47 113 H 18 96/77 06/16/24 10:07 100.8 F H 111 H 18 93/79 06/16/24 09:35 112 H 18 99/72 95 06/16/24 08:25 99.9 F H 121 H 20 115/69 96 Intake and Output 06/15/24 06/16/24 06/16/24 22:59 06:59 14:59 Other: Weight 95.254 kg General: Appears acutely ill, no acute distress Derm: [warm], [dry] Head: [atraumatic], [normocephalic], [symmetric] Eyes: [EOMI], [no lid lag], [anicteric sclera] Mouth: [no lip lesion], [mucus membranes moist] Cardiovascular: [S1S2 reg], [no murmur], [positive posterior tibial pulse bilateral], Lungs: Coarse lung sounds bilaterally, rhonchi heard in both lung gómez Abdominal: [soft], [ nontender to palpation], [no guarding], [no appreciable organomegaly] Ext: [no gross muscle atrophy], [no edema], [no contractures] Neuro: [ CN II-XI grossly intact], [no focal neuro deficits] Psych: [Alert], [oriented], [appropriate affect] Results CBC & Chem 7: 06/16/24 09:04 06/16/24 09:04 Labs: Abnormal Lab Results - Last 24 Hours (Table) 06/16/24 06/16/24 Range/Units 09:04 09:04 WBC 11.6 H (3.8-10.6) k/uL RBC 3.60 L (3.80-5.40) m/uL Hgb 10.8 L (11.4-16.0) gm/dL Neutrophils # 9.6 H (1.3-7.7) k/uL Sodium 135 L (137-145) mmol/L Glucose 133 H (74-99) mg/dL Alkaline Phosphatase 164 H (38-126) U/L Total Protein 6.1 L (6.3-8.2) g/dL Assessment and Plan Plan: Sepsis, elevated WBC, tachycardia, unclear source at this time, possible early onset bacterial pneumonia? Sinus tachycardia Leukocytosis secondary to above Metastatic breast cancer, currently on chemotherapy Fever of unknown origin, likely secondary to above Given patient's immunocompromise state, will admit patient for sepsis Differential diagnosis at this time would be early onset bacterial pneumonia No obvious infiltrate noted on chest x-ray Started patient on vancomycin and cefepime Consult placed to infectious disease given complexity of the patient Consult also placed to hematology oncology for follow-up Possible low-grade fevers likely due to recent chemotherapy as well as Neupogen injection but given patient's complaining of respiratory symptoms, leaning more towards infectious etiology No concerns for urinary infection, denies any burning, pressure during urination Urinalysis also negative at this time Continue Eliquis Resume remaining home medications Okay to restart Dilaudid p.o. for pain control Hold fentanyl patches at this time admitted 06/18 Patient seen and examined at bedside She states that she is currently having some worsening shortness of breath Will obtain a chest x-ray this morning CT of the abdomen was performed, independently reviewed Currently there is a collection of fluid in her anterior abdominal wall, unclear if this is an abscess or not concrete superficial Patient has had multiple abdominal surgeries including partial removal of her liver due to metastatic cancer, its possibility that the fluid collection is just remnant from prior surgeries Otherwise it did draft roller picker pneumonia in the right lower lobes on the CT of the abdomen, likely source of her infection appears to be pneumonia at this point as well Infectious disease on board, appreciate their recommendations Will continue current antibiotics, perhaps needs better coverage for atypicals, defer to infectious disease Objective - Vital Signs Vital signs: Vital Signs Temp 99.1 F 06/18/24 07:22 Pulse 99 06/18/24 07:22 Resp 17 06/18/24 07:22 BP 106/66 06/18/24 07:22 Pulse Ox 94 L 06/18/24 07:22 FiO2 Intake & Output 06/17/24 06/18/24 06/18/24 18:59 06:59 18:59 Intake Total 1438 240 Balance 1438 240 Intake: Oral 1438 240 Other: Voiding Method Toilet # Voids 6 2 - Labs CBC & Chem 7: 06/18/24 05:32 06/18/24 05:32 Labs: Abnormal Lab Results - Last 24 Hours (Table) 06/18/24 06/18/24 Range/Units 05:32 05:32 WBC 11.10 H (4.50-10.00) X 10*3/uL RBC 2.92 L (4.10-5.20) X 10*6/uL Hgb 9.0 L (12.0-15.0) g/dL Hct 29.4 L (37.2-46.3) % MCV 100.7 H (80.0-97.0) FL MCHC 30.6 L (32.0-37.0) g/dL RDW 15.0 H (11.5-14.5) % Immature Gran # 0.19 H (0.00-0.04) X 10*3/uL Neutrophils # 8.57 H (1.80-7.70) X 10*3/uL Toxic Granulation 2+ A Creatinine 0.49 L (0.52-1.04) mg/dL Microbiology - Last 24 Hours (Table) 06/16/24 11:42 Blood Culture Gram Stain - Preliminary Blood Blood Culture - Preliminary 06/16/24 11:34 Blood Culture - Preliminary Blood
--- NOTE | 2024-06-18 11:56 | XR ---
EXAMINATION TYPE: XR chest 2V DATE OF EXAM: 06/18/2024 COMPARISON: 06/16/2024 CLINICAL INDICATION: Female, 44 years old with history of SOB; , TECHNIQUE: XR chest 2V views of the chest. FINDINGS: Increasing right lower lobe infiltrate with small effusion. Elevated hemidiaphragm. Surgical changes overlying the right lower lobe. Mediport catheter stable. There is increased interstitial markings co mpared to prior exam. Surgical clips in the left axilla. Heart size is stable. No sizable pneumothora x. IMPRESSION: 1. Increasing right lower lobe infiltrate with small effusion. Correlate for pneumonia. Interstitium is increased from prior exam may reflect reduced inspiration versus superimposed interstitial pneumon itis or mild venous congestion. [facility], , 06/18/2024 11:54 AM
--- NOTE | 2024-06-18 12:07 | NM ---
EXAMINATION TYPE: NM pul vent and perfuse DATE OF EXAM: 06/18/2024 CLINICAL INDICATION: Female, 44 years old with history of fever,malignancy; COMPARISON: NONE TECHNIQUE: Utilizing inhalation of 39.3 mCi Tc 99m DTPA aerosol and intravenous injection of 5.2 mCi of Tc 99m MAA, ventilation and perfusion images are acquired post injection in multiple projections. FINDINGS: Ventilation images are nondiagnostic. Therefore limiting the exam. There is reduced perfusion within the left mid and lower lung field and in the right lower lobe. Cannot exclude a pulmonary embolus. Re commend correlation with CTA pulmonary angiogram. IMPRESSION: 1. Nondiagnostic ventilation images. Perfusion images do demonstrate reduced perfusion throughout the mid and lower left lung and right lower lobe. Pulmonary embolism cannot be excluded. Consider CTA pu lmonary angiogram. [facility], , 06/18/2024 12:05 PM
[2024-06-18] MEDS: HYDROmorphone 1 MG/ML 1 ML SYRINGE IVP PRN (13:09)
--- NOTE | 2024-06-18 13:11 | P.PN ---
Subjective Progress Note Date: 06/18/24 The patient continues to show slow improvement. She has been afebrile since yesterday. Shortness of breath is improved, but still present, especially on exertion. She continues to complain of congestion and upper chest discomfort. However she is not able to expectorate significantly. Objective - Vital Signs Vital signs: Vital Signs Temp 97.8 F 06/18/24 12:37 Pulse 98 06/18/24 12:37 Resp 16 06/18/24 12:37 BP 100/58 06/18/24 12:37 Pulse Ox 96 06/18/24 12:37 FiO2 Intake & Output 06/17/24 06/18/24 06/18/24 18:59 06:59 18:59 Intake Total 1438 660 Balance 1438 660 Intake: Oral 1438 660 Other: Voiding Method Toilet # Voids 6 2 - Constitutional General appearance: Present: no acute distress - EENT Eyes: Present: EOMI ENT: Present: hearing grossly normal, normal oropharynx - Respiratory Respiratory: bilateral: CTA - Cardiovascular Rhythm: regular Heart sounds: normal: S1, S2 - Gastrointestinal General gastrointestinal: Present: soft - Integumentary Integumentary: Present: normal - Musculoskeletal Musculoskeletal: Present: generalized weakness, strength equal bilaterally - Psychiatric Psychiatric: Present: A&O x's 3, appropriate affect - Labs CBC & Chem 7: 06/18/24 05:32 06/18/24 05:32 Labs: Abnormal Lab Results - Last 24 Hours (Table) 06/18/24 06/18/24 Range/Units 05:32 05:32 WBC 11.10 H (4.50-10.00) X 10*3/uL RBC 2.92 L (4.10-5.20) X 10*6/uL Hgb 9.0 L (12.0-15.0) g/dL Hct 29.4 L (37.2-46.3) % MCV 100.7 H (80.0-97.0) FL MCHC 30.6 L (32.0-37.0) g/dL RDW 15.0 H (11.5-14.5) % Immature Gran # 0.19 H (0.00-0.04) X 10*3/uL Neutrophils # 8.57 H (1.80-7.70) X 10*3/uL Toxic Granulation 2+ A Creatinine 0.49 L (0.52-1.04) mg/dL Microbiology - Last 24 Hours (Table) 06/16/24 11:42 Blood Culture Gram Stain - Preliminary Blood Blood Culture - Preliminary 06/16/24 11:34 Blood Culture - Preliminary Blood Assessment and Plan (1) Fever of unknown origin Narrative/Plan: Fever pattern has improved, with no fever over the last 24 hours. This is pre sumed to be infectious, based on the clinical presentation and response to antibiotic. Microbiology studies negative so far. Continue treatment per IM and ID. Current Visit: Yes Status: Acute Priority: High Code(s): R50.9 - FEVER, UNSPECIFIED SNOMED Code(s): 0783606 (2) Metastatic adenocarcinoma to breast Narrative/Plan: Treatment currently on hold till acute condition improves Current Visit: No Status: Chronic Priority: Medium Code(s): C79.81 - SECONDARY MALIGNANT NEOPLASM OF BREAST SNOMED Code(s): 453722834073374 Plan: The patient had a VQ scan done, because of her presentation with shortness of breath. This was essentially nondiagnostic. There was mention of decreased perfusion in bilateral lungs, but this information is not useful, as the ve ntilation studies were nondiagnostic. -The patient does have a history of allergy to IV dye, but on questioning stated that she has had CT scans with dye done previously as long as she gets premedications especially Benadryl. Therefore CT angiogram will be ordered with premedication. The same was discussed with nursing.
[2024-06-18] MEDS: methylPREDNISolone SOD SUCCI 125 MG/2 ML VIAL IV STA (14:09)
[2024-06-18] MEDS: diphenhydrAMINE 50 MG/ML 1 ML VIAL IVP STA (14:10)
[2024-06-18] MEDS: FAMOTIDINE 20 MG/2 ML VIAL IV STA (14:10)
--- NOTE | 2024-06-18 15:01 | CT ---
EXAMINATION TYPE: CT angio chest CT DLP: 393.0 mGycm, Automated exposure control for dose reduction was used. DATE OF EXAM: 06/18/2024 2:44 PM COMPARISON: Chest radiograph 06/18/2024, nuclear medicine VQ scan 06/18/2024, CT chest 04/15/2018 CLINICAL INDICATION:Female, 44 years old with history of Suspected PE; SOB, Cough, r/o PE. Stage 4 br east CA. TECHNIQUE/CONTRAST: CTA scan of the thorax is performed with IV Contrast, patient injected with 100 ml mL of Isovue 370, pulmonary embolism protocol. MIP images are created and reviewed. FINDINGS: Pulmonary Artery: There is no evidence for a filling defect within the pulmonary vasculature to sugge st acute pulmonary embolism. The pulmonary artery is of normal size. Lungs/Pleura: No pleural effusion or pneumothorax. Scattered multifocal patchy groundglass and consol idative opacities throughout the lungs. Linear scarring and/or atelectasis within the right lower lob e. Airway: Large airways are patent. Heart: The heart is mildly enlarged for size.. No pericardial effusion. Vasculature: No evidence of aortic aneurysm. Anterior chest wall IJ Mediport catheter with distal tip terminating in the mid SVC. Mediastinum: No evidence of adenopathy. Musculoskeletal: No acute osseous abnormalities. Scattered sclerotic lesions identified primarily wit hin the vertebral bodies diffusely within the ribs. Examples include a T9 lesion measuring up to 1.2 cm and a T12 lesion measuring up to 1.2 cm. These are new from prior CT in 2018. Multiple sclerotic l esions are identified within the abdomen and pelvis osseous structures on prior CT. Soft Tissues: Postsurgical changes along the bilateral anterior chest wall with surgical clips. Lower neck: No significant findings. Upper Abdomen: Enlarged liver with postsurgical change along the posterior right hepatic lobe.. IMPRESSION: 1. No evidence of pulmonary embolism. 2. Multifocal patchy groundglass and consolidative opacities favored to represent multifocal pneumoni a. Underlying metastasis is not excluded. 3. Scattered osseous sclerotic lesions are new from prior CT chest in 2018. Additional sclerotic lesi ons are identified within the osseous structures of the abdomen and pelvis on recent CT. Findings are concerning for metastasis. [facility], , 06/18/2024 2:58 PM
--- NOTE | 2024-06-18 15:36 | P.PN ---
Subjective Progress Note Date: 06/18/24 Principal diagnosis: Reason for follow-up is fever Patient is a 44-year-old female with a past medical history significant for breast cancer ADHD anxiety depression patient has been on chemotherapy through the right chest wall Mediport for about a year last chemotherapy on 06/10/2024 presenting to the hospital for evaluation of fever sore throat and congestion, patient did have a chest x-ray with elevated hemidiaphragm small joint effusion white count of 11.6 on initial workup. On today's evaluation that is 06/18/2024,the patient did have improvement her fever pattern with a low-grade temperature of 99.1 this morning patient is breathing comfortably currently on room air still having a cough but not bring up any sputum no nausea no vomiting or diarrhea. The patient white count is 11.10 creatinine 0.49 Vanco trough is 19.5 blood culture with gram-positive cocci in cluster patient also have a CT abdominal pelvis did shows right lower lobe opacity suspicious for pneumonia refill enhancing midline anterior abdominal wall fluid collection, also have a CT ang iogram of the chest did show some multifocal pneumonia no PE Objective - Vital Signs Vital signs: Vital Signs Temp 97.8 F 06/18/24 12:37 Pulse 98 06/18/24 12:37 Resp 16 06/18/24 12:37 BP 100/58 06/18/24 12:37 Pulse Ox 96 06/18/24 12:37 FiO2 Intake & Output 06/17/24 06/18/24 06/18/24 18:59 06:59 18:59 Intake Total 1438 660 Balance 1438 660 Intake: Oral 1438 660 Other: Voiding Method Toilet # Voids 6 2 - Exam GENERAL DESCRIPTION: Middle-age female lying in bed in no distress RESPIRATORY SYSTEM: Unlabored breathing , decreased breath sounds at bases HEART: S1 S2 regular rate and rhythm , ABDOMEN: Soft , right-sided tenderness EXTREMITIES: No edema feet - Labs CBC & Chem 7: 06/18/24 05:32 06/18/24 05:32 Labs: Abnormal Lab Results - Last 24 Hours (Table) 06/18/24 06/18/24 Range/Units 05:32 05:32 WBC 11.10 H (4.50-10.00) X 10*3/uL RBC 2.92 L (4.10-5.20) X 10*6/uL Hgb 9.0 L (12.0-15.0) g/dL Hct 29.4 L (37.2-46.3) % MCV 100.7 H (80.0-97.0) FL MCHC 30.6 L (32.0-37.0) g/dL RDW 15.0 H (11.5-14.5) % Immature Gran # 0.19 H (0.00-0.04) X 10*3/uL Neutrophils # 8.57 H (1.80-7.70) X 10*3/uL Toxic Granulation 2+ A Creatinine 0.49 L (0.52-1.04) mg/dL Microbiology - Last 24 Hours (Table) 06/16/24 11:42 Blood Culture Gram Stain - Preliminary Blood Blood Culture - Preliminary 06/16/24 11:34 Blood Culture - Preliminary Blood Assessment and Plan (1) Sepsis Current Visit: Yes Status: Acute Code(s): A41.9 - SEPSIS, UNSPECIFIED ORG ANISM SNOMED Code(s): 12456835 (2) Pneumonia Current Visit: Yes Status: Acute Code(s): J18.9 - PNEUMONIA, UNSPECIFIED ORGANISM SNOMED Code(s): 419288179 Plan: 1patient presented to hospital with sepsis in this patient who did have fever elevated white count tachycardia meeting criteria for SIRS source possible pneum onia as the patient did have predominantly respiratory symptoms with a question of community-acquired versus more resistant gram-negative pneumonia patient also have a port last use on 06/10/2024 will be the source of this fever as well 2-blood culture has been obtained which are currently growing gram-positive with ID sensitivities pending 3-patient did have CT of abdominal pelvis suggestive of right-sided pneumonia and abdominal wall fluid collection for which IR was consulted mention more lik abimael seroma drainage could not be done as the patient is on Eliquis 4we will continue patient cefepime and vancomycin, will repeat blood culture with a.m. lab to document clearance Dictation was produced using [employer] dictation software. please excuse any grammatical, word or spelling errors. Time with Patient: Less than 30
[2024-06-19 06:04] LABS: INR 0.9 (<1.2); Prothrombin Time 10.4 sec (10.0-12.5)
[2024-06-19] MEDS ORDERED: IPRATROPIUM-ALBUTEROL 3 ML NEB INHALATION PRN (10:33)
[2024-06-19] MEDS: IPRATROPIUM-ALBUTEROL 3 ML NEB INHALATION SCH (11:50)
[2024-06-19] MEDS: guaiFENesin 600 MG TABLET.ER PO SCH (12:29)
[2024-06-19] MEDS: polyethylene glycoL 3350 17 GM POWD.PACK PO STA (12:29)
[2024-06-19] MEDS: LORazepam 1 MG TAB PO PRN (12:31)
--- NOTE | 2024-06-19 12:52 | P.PN ---
Subjective Progress Note Date: 06/19/24 The patient remains afebrile since her last visit yesterday. Upper airway symptoms, and breathing continues to improve, although slowly Objective - Vital Signs Vital signs: Vital Signs Temp 98.1 F 06/19/24 07:47 Pulse 99 06/19/24 09:40 Resp 17 06/19/24 09:40 BP 114/61 06/19/24 07:47 Pulse Ox 99 06/19/24 07:47 FiO2 Intake & Output 06/18/24 06/19/24 06/19/24 18:59 06:59 18:59 Intake Total 2760 3180 540 Balance 2760 3180 540 Intake: Intake, IV Titration 2100 Amount Cefepime 2 gm In Sodium 200 Chloride 0.9% 100 ml @ 25 mls/hr IVPB Q8H [facility] Rx#: [id number] Sodium Chloride 0.9% 1, 900 000 ml @ 75 mls/hr IV . [id number] [facility] Rx#:[id number] Vancomycin 1,500 mg In 1000 Sodium Chloride 0.9% 500 ml 500 ml @ 167 mls/hr IVPB Q8H [facility] Rx#: [id number] Oral 2760 1080 540 Other: Voiding Method Toilet Toilet # Voids 5 3 - Constitutional General appearance: Present: no acute distress - EENT Eyes: Present: EOMI ENT: Present: hearing grossly normal, normal oropharynx - Respiratory Respiratory: bilateral: CTA - Cardiovascular Rhythm: regular Heart sounds: normal: S1, S2 - Gastrointestinal General gastrointestinal: Present: normal bowel sounds, soft - Integumentary Integumentary: Present: normal - Neurologic Neurologic: Present: CNII-XII intact - Musculoskeletal Musculoskeletal: Present: generalized weakness, strength equal bilaterally - Psychiatric Psychiatric: Present: A&O x's 3, appropriate affect - Labs CBC & Chem 7: 06/18/24 05:32 06/18/24 05:32 Labs: Microbiology - Last 24 Hours (Table) 06/16/24 11:42 Blood Culture Gram Stain - Preliminary Blood Blood Culture - Preliminary 06/16/24 11:34 Blood Culture - Preliminary Blood Assessment and Plan (1) Fever of unknown origin Narrative/Plan: The patient's fever has improved significantly, and she remains afebrile since my last visit with her yesterday. Her CT angiogram was negative for PE, but did show bilateral patchy opacities. Therefore it appears that her fever is most likely due to pneumonia. -Continue antibiotics per ID Current Visit: Yes Status: Acute Priority: High Code(s): R50.9 - FEVER, UNSPECIFIED SNOMED Code(s): 7957673 (2) Metastatic adenocarcinoma to breast Narrative/Plan: Treatment on hold, until her acute symptoms resolve. She will resume follow-up with her primary oncologist postdischarge. The lung opacities noted on CT angiogram appear to be inflammatory, rather than metastatic. The appearance, in conjunction with her symptoms, make it much more likely that these represent inflammation/infection, rather than parenchymal metastasis. Sclerotic lesion in the bones are noted, which represent her known bone metastasis Current Visit: No Status: Chronic Priority: Medium Code(s): C79.81 - SECONDARY MALIGNANT NEOPLASM OF BREAST SNOMED Code(s): 640797297071101
--- NOTE | 2024-06-19 15:22 | P.PN ---
Subjective Progress Note Date: 06/19/24 (delayed charting ) Patient is a 44-year-old female with metastatic breast cancer presenting with fever. Found to have pneumonia. Patient seen and examined at bedside. Shortness of breath and chest tightness, anxiety, pain. Eating and drinking well. Constipation. No diarrhea. Vital signs reviewed General: Nontoxic, no distress, appears at stated age Cardiovascular: S1S2 reg, no murmur Lungs: CTA bilateral, no rhonchi, no rales, no accessory muscle use Abdominal: Soft, nontender to palpation, no guarding Ext: No gross muscle atrophy, no edema b/l lower extremities, no contractures Neuro: CN II-XI grossly intact, no focal neuro deficits Psych: Alert, oriented, appropriate affect Assessment/Plan: Pneumonia 1/2 blood cultures positive for gram-positive cocci in clusters Metastatic breast cancer on active chemo Intractable pain of malignancy -Anxiety -Start DuoNebs 4 times daily and as needed -Eating and drinking well stop IV fluids -Cefepime 2 g IV every 8 hours day #3 -Vancomycin IV piggyback with pharmacy to dose, day #3, monitor creatinine and vancomycin trough for toxicity -Resume fentanyl patch continue Dilaudid for breakthrough pain -Repeat blood cultures in a.m. -ID and oncology recommendations appreciated -Follow chest x-ray till clear Constipation -Due for labs as needed -MiraLAX x 1 Imaging: CTA of the chest: No evidence of PE, multifocal pneumonia underlying metastasis not excluded -Scattered osseous sclerotic lesions Data Review: No new DVT prophylaxis: Continue with Eliquis Anticipated discharge date and place: Pending clinical course This dictation was prepared using [employer] voice recognition software. Though every attempt is made to correct errors during dictation some may still exist. Objective - Vital Signs Vital signs: Vital Signs Temp 98.5 F 06/19/24 14:00 Pulse 88 06/19/24 14:00 Resp 16 06/19/24 14:00 BP 109/56 06/19/24 14:00 Pulse Ox 97 06/19/24 14:00 FiO2 Intake & Output 06/18/24 06/19/24 06/19/24 18:59 06:59 18:59 Intake Total 2760 3180 780 Balance 2760 3180 780 Intake: Intake, IV Titration 2100 Amount Cefepime 2 gm In Sodium 200 Chloride 0.9% 100 ml @ 25 mls/hr IVPB Q8H [facility] Rx#: [id number] Sodium Chloride 0.9% 1, 900 000 ml @ 75 mls/hr IV . [id number] [facility] Rx#:[id number] Vancomycin 1,500 mg In 1000 Sodium Chloride 0.9% 500 ml 500 ml @ 167 mls/hr IVPB Q8H [facility] Rx#: [id number] Oral 2760 1080 780 Other: Voiding Method Toilet Toilet # Voids 5 3 - Labs CBC & Chem 7: 06/18/24 05:32 06/18/24 05:32 Labs: Microbiology - Last 24 Hours (Table) 06/16/24 11:42 Blood Culture Gram Stain - Preliminary Blood Blood Culture - Preliminary 06/16/24 11:34 Blood Culture - Preliminary Blood
--- NOTE | 2024-06-19 16:22 | P.PN ---
Subjective Progress Note Date: 06/19/24 Principal diagnosis: Reason for follow-up is fever Patient is a 44-year-old female with a past medical history significant for breast cancer ADHD anxiety depression patient has been on chemotherapy through the right chest wall Mediport for about a year last chemotherapy on 06/10/2024 presenting to the hospital for evaluation of fever sore throat and congestion, patient did have a chest x-ray with elevated hemidiaphragm small joint effusion white count of 11.6 on initial workup. On today's evaluation that is 06/19/2024, the patient continues to be afebrile, the patient is on room air however is complaining of more shortness of breath she also have a cough with minimal sputum no nausea vomiting no abdominal pain or diarrhea. Patient did have a procalcitonin 0.10 Objective - Vital Signs Vital signs: Vital Signs Temp 98.5 F 06/19/24 14:00 Pulse 86 06/19/24 15:50 Resp 16 06/19/24 14:00 BP 109/56 06/19/24 14:00 Pulse Ox 97 06/19/24 14:00 FiO2 Intake & Output 06/18/24 06/19/24 06/19/24 18:59 06:59 18:59 Intake Total 2760 3180 780 Balance 2760 3180 780 Intake: Intake, IV Titration 2100 Amount Cefepime 2 gm In Sodium 200 Chloride 0.9% 100 ml @ 25 mls/hr IVPB Q8H [facility] Rx#: [id number] Sodium Chloride 0.9% 1, 900 000 ml @ 75 mls/hr IV . [id number] [facility] Rx#:[id number] Vancomycin 1,500 mg In 1000 Sodium Chloride 0.9% 500 ml 500 ml @ 167 mls/hr IVPB Q8H [facility] Rx#: [id number] Oral 2760 1080 780 Other: Voiding Method Toilet Toilet # Voids 5 3 - Exam GENERAL DESCRIPTION: Middle-age female lying in bed in no distress RESPIRATORY SYSTEM: Unlabored breathing , decreased breath sounds at bases HEART: S1 S2 regular rate and rhythm , ABDOMEN: Soft , right-sided tenderness EXTREMITIES: No edema feet - Labs CBC & Chem 7: 06/18/24 05:32 06/18/24 05:32 Labs: Microbiology - Last 24 Hours (Table) 06/16/24 11:42 Blood Culture Gram Stain - Preliminary Blood Blood Culture - Preliminary 06/16/24 11:34 Blood Culture - Preliminary Blood Assessment and Plan (1) Sepsis Current Visit: Yes Status: Acute Code(s): A41.9 - SEPSIS, UNSPECIFIED ORGANISM SNOMED Code(s): 05434852 (2) Pneumonia Current Visit: Yes Status: Acute Code(s): J18.9 - PNEUMONIA, UNSPECIFIED ORGANISM SNOMED Code(s): 430177057 Plan: 1patient presented to hospital with sepsis in this patient who did have fever elevated white count tachycardia meeting criteria for SIRS source possible pneumonia as the patient did have predominantly respiratory symptoms with a question of community-acquired versus more resistant gram-negative pneumonia patient also have a port last use on 06/10/2024 will be the source of this fever as well 2-blood culture has been obtained which are currently growing gram-positive with ID sensitivities pending 3-patient did have CT of abdominal pelvis suggestive of right-sided pneumonia and abdominal wall fluid collection for which IR was consulted mention more likely seroma drainage could not be done as the patient is on Eliquis 4patient did have resolution of the fever currently being treated cefepime and vancomycin, await finalization of the blood culture Dictation was produced using [employer] dictation software. please excuse any grammatical, word or spelling errors. Time with Patient: Less than 30
[2024-06-19] MEDS: bisacodyL 5 MG TABLET.DR PO PRN (21:02)
[2024-06-20] MEDS: VANCOMYCIN TROUGH DUE 1 EACH MISC MISCELLANE ONE (05:05)
[2024-06-20 05:22] LABS: African American GFR (CKD) >90 (>60 ml/min/1.73 sqM); Non-African American GFR(CKD) >90 (>60 ml/min/1.73 sqM)
[2024-06-20 09:00] LABS: Basophils # (A) 0.08 X 10*3/uL (0.00-0.10); Basophils % (A) 0.8 %; Eosinophils # (A) 0.13 X 10*3/uL (0.04-0.35); Eosinophils % (A) 1.3 %; HCT 28.2 % (37.2-46.3); HGB 8.4 g/dL (12.0-15.0); Lymphocytes # (A) 1.75 X 10*3/uL (0.90-5.00); MCH 29.1 pg (27.0-32.0); MCHC 29.8 g/dL (32.0-37.0); MCV 97.6 FL (80.0-97.0); Mean Platelet Volume 9.4 FL (9.5-12.2); Monocytes # (A) 0.53 X 10*3/uL (0.20-1.00); Monocytes % (A) 5.1 %; NRBC Per 100 WBC 0.03 X 10*3/uL (0.00-0.01); Neutrophils # (A) 7.51 X 10*3/uL (1.80-7.70); Neutrophils % (A) 72.9 %; Platelet Count 233 X 10*3/uL (140-440); RBC 2.89 X 10*6/uL (4.10-5.20); RDW 15.1 % (11.5-14.5)
[2024-06-20 11:34] LABS: Anion Gap 2 mmol/L; Blood Urea Nitrogen 8 mg/dL (7-17); Calcium 7.5 mg/dL (8.4-10.2); Carbon Dioxide 30 mmol/L (22-30); Chloride 108 mmol/L (98-107); Glucose 92 mg/dL (74-99); Potassium 3.6 mmol/L (3.5-5.1); Sodium 140 mmol/L (137-145)
--- NOTE | 2024-06-20 14:08 | P.PN ---
Subjective Progress Note Date: 06/20/24 Patient is a 44-year-old female with metastatic breast cancer presenting with fever. Found to have pneumonia. Patient seen and examined at bedside. Continues to feel slightly anxious. Has some shortness of breath which is unchanged from yesterday. Eating and drinking well. Had a bowel movement. Vital signs reviewed General: Nontoxic, no distress, appears at stated age Cardiovascular: S1S2 reg, no murmur Lungs: CTA bilateral, no rhonchi, no rales, no accessory muscle use Abdominal: Soft, nontender to palpation, no guarding Ext: No gross muscle atrophy, no edema b/l lower extremities, no contractures Neuro: CN II-XI grossly intact, no focal neuro deficits Psych: Alert, oriented, appropriate affect Assessment/Plan: Pneumonia, possible gram negative with sepsis as evidenced by fever and tachycardia 1/2 blood cultures positive for gram-positive cocci in clusters, repeat neg X 24 hours. Metastatic breast cancer on active chemo Intractable pain of malignancy Anemia, suspect related to chemo -Anxiety -DuoNebs 4 times daily and as needed -Eating and drinking well stop IV fluids -Cefepime 2 g IV every 8 hours day #4 -Vancomycin IV piggyback with pharmacy to dose, day #4, monitor creatinine and vancomycin trough for toxicity - fentanyl patch for chronic pain and continue Dilaudid for breakthrough pain -ID and oncology recommendations appreciated -Follow chest x-ray till clear Constipation, resolved Imaging: None new Data Review: Labs reviewed from today include CBC and basic metabolic profile which are remarkable for white blood cell count of 10.3. Repeat blood culture from 06/19-no growth 24 hours DVT prophylaxis: Continue with Eliquis Anticipated discharge date and place: Pending clinical course This dictation was prepared using [employer] voice recognition software. Though every attempt is made to correct errors during dictation some may still exist. Objective - Vital Signs Vital signs: Vital Signs Temp 97.6 F 06/20/24 13:06 Pulse 105 H 06/20/24 13:06 Resp 17 06/20/24 13:06 BP 115/67 06/20/24 13:06 Pulse Ox 94 L 06/20/24 13:06 FiO2 Intake & Output 06/19/24 06/20/24 06/20/24 18:59 06:59 18:59 Intake Total 2880 1740 1080 Output Total 1 1 1 Balance 2879 1739 1079 Intake: Intake, IV Titration 1200 Amount Cefepime 2 gm In Sodium 200 Chloride 0.9% 100 ml @ 25 mls/hr IVPB Q8H [facility] Rx#: [id number] Vancomycin 1,500 mg In 1000 Sodium Chloride 0.9% 500 ml 500 ml @ 167 mls/hr IVPB Q8H [facility] Rx#: [id number] Oral 2880 540 1080 Output: Stool 1 1 1 Other: Voiding Method Toilet Toilet Toilet # Voids 6 3 - Labs CBC & Chem 7: 06/20/24 04:37 06/20/24 04:37 Labs: Abnormal Lab Results - Last 24 Hours (Table) 06/20/24 06/20/24 Range/Units 04:37 04:37 WBC 10.30 H (4.50-10.00) X 10*3/uL RBC 2.89 L (4.10-5.20) X 10*6/uL Hgb 8.4 L (12.0-15.0) g/dL Hct 28.2 L (37.2-46.3) % MCV 97.6 H (80.0-97.0) FL MCHC 29.8 L (32.0-37.0) g/dL RDW 15.1 H (11.5-14.5) % MPV 9.4 L (9.5-12.2) FL Immature Gran # 0.30 H (0.00-0.04) X 10*3/uL NRBC/100 WBC Diff 0.03 H (0.00-0.01) X 10*3/uL Chloride 108 H (98-107) mmol/L Calcium 7.5 L (8.4-10.2) mg/dL Microbiology - Last 24 Hours (Table) 06/16/24 11:42 Blood Culture Gram Stain - Final Blood Blood Culture - Preliminary 06/19/24 05:34 Blood Culture - Preliminary Blood 06/19/24 05:45 Gram Stain - Preliminary Sputum Sputum Culture - Preliminary 06/16/24 11:34 Blood Culture - Preliminary Blood
[2024-06-20] MEDS: VANCOMYCIN 1,500 MG in SODIUM CHLORIDE 0.9% 500 ML 500 ML IVPB SCH (22:36)
[2024-06-21 05:06] LABS: African American GFR (CKD) >90 (>60 ml/min/1.73 sqM); Anion Gap 0 mmol/L; Blood Urea Nitrogen 12 mg/dL (7-17); Calcium 7.6 mg/dL (8.4-10.2); Carbon Dioxide 27 mmol/L (22-30); Chloride 112 mmol/L (98-107); Glucose 89 mg/dL (74-99); Non-African American GFR(CKD) >90 (>60 ml/min/1.73 sqM); Potassium 3.8 mmol/L (3.5-5.1); Sodium 139 mmol/L (137-145)
[2024-06-21 08:34] LABS: HCT 29.7 % (37.2-46.3); MCH 29.8 pg (27.0-32.0); MCHC 30.3 g/dL (32.0-37.0); MCV 98.3 FL (80.0-97.0); Mean Platelet Volume 9.2 FL (9.5-12.2); NRBC Per 100 WBC 0.04 X 10*3/uL (0.00-0.01); Platelet Count 256 X 10*3/uL (140-440); RBC 3.02 X 10*6/uL (4.10-5.20); RDW 15.3 % (11.5-14.5); WBC 11.44 X 10*3/uL (4.50-10.00)
--- NOTE | 2024-06-21 12:34 | P.PN ---
Subjective Progress Note Date: 06/21/24 No acute events. Reports feeling improved since admission. C/o back pain and nausea which has been ongoing, no acute changes. Denies vomiting. Pt afebrile. WBC 11.4, hgb 9.0, plt 256 Objective - Vital Signs Vital signs: Vital Signs Temp 98.4 F 06/21/24 07:18 Pulse 96 06/21/24 11:35 Resp 16 06/21/24 07:18 BP 127/71 06/21/24 07:18 Pulse Ox 96 06/21/24 07:18 FiO2 Intake & Output 06/20/24 06/21/24 06/21/24 18:59 06:59 18:59 Intake Total 3920 0 Output Total 1 Balance 3919 0 Intake: Oral 3920 0 Output: Stool 1 Other: Voiding Method Toilet # Voids 6 2 # Bowel Movements 1 - Constitutional General appearance: Present: no acute distress - EENT Eyes: Present: anicteric sclerae, EOMI ENT: Present: hearing grossly normal - Respiratory Respiratory: bilateral: wheezing - Cardiovascular Details: skin warm and dry - Gastrointestinal General gastrointestinal: Present: soft. Absent: distended, tenderness - Integumentary Integumentary: Absent: cyanotic, jaundiced - Musculoskeletal Musculoskeletal: Present: strength equal bilaterally - Psychiatric Psychiatric: Present: A&O x's 3 - Labs CBC & Chem 7: 06/21/24 04:12 06/21/24 04:12 Labs: Abnormal Lab Results - Last 24 Hours (Table) 06/21/24 06/21/24 Range/Units 04:12 04:12 WBC 11.44 H (4.50-10.00) X 10*3/uL RBC 3.02 L (4.10-5.20) X 10*6/uL Hgb 9.0 L (12.0-15.0) g/dL Hct 29.7 L (37.2-46.3) % MCV 98.3 H (80.0-97.0) FL MCHC 30.3 L (32.0-37.0) g/dL RDW 15.3 H (11.5-14.5) % MPV 9.2 L (9.5-12.2) FL NRBC/100 WBC Diff 0.04 H (0.00-0.01) X 10*3/uL Chloride 112 H (98-107) mmol/L Creatinine 0.46 L (0.52-1.04) mg/dL Calcium 7.6 L (8.4-10.2) mg/dL Microbiology - Last 24 Hours (Table) 06/19/24 05:45 Gram Stain - Final Sputum Sputum Culture - Final 06/16/24 11:42 Blood Culture Gram Stain - Final Blood Blood Culture - Preliminary 06/19/24 05:34 Blood Culture - Preliminary Blood Assessment and Plan (1) Fever of unknown origin Current Visit: Yes Status: Acute Priority: High Code(s): R50.9 - FEVER, UNSPECIFIED SNOMED Code(s): 2154554 (2) Pneumonia Current Visit: Yes Status: Acute Priority: High Code(s): J18.9 - PNEUMONIA, UNSPECIFIED ORGANISM SNOMED Code(s): 659338198 (3) Metastatic adenocarcinoma to breast Current Visit: No Status: Chronic Priority: Medium Code(s): C79.81 - SECONDARY MALIGNANT NEOPLASM OF BREAST SNOMED Code(s): 103139958420914 Plan: Fever of unknown origin: The patient's fever has improved significantly, and she remains afebrile >[address] angiogram was negative for PE, but did show bilateral patchy opa cities. Therefore it appears that her fever is most likely due to pneumonia. -Counts stable -Continue antibiotics per ID Metastatic breast cancer: Treatment on hold, until her acute symptoms resolve. She will resume follow-up with her primary oncologist upon discharge. The lung opacities noted on CT angiogram appear to be inflammatory, rather than metastatic. The appearance, in conjunction with her symptoms, make it much more likely that these represent inflammation/infection, rather than parenchymal metastasis. Sclerotic lesion in the bones are noted, which represent her known bone metastasis Doctor attests: I performed a history and physical examination of this patient, developed impression and plan of care. Discussed with dictator. I agree with dictators note, documented as a scribe.
--- NOTE | 2024-06-21 14:39 | P.PN ---
Subjective Progress Note Date: 06/21/24 Hospital Course: a 44-year-old female with past medical history of metastatic breast cancer on chemotherapy, intractable pain of malignancy, who presented with fever, cough and was found to have pneumonia. ID and oncology consulted Patient was seen and examined at bedside today, she was feeling tired, complaining of resting shortness of breath that is unchanged, as well as unchanged nausea, she however eats and drinks well, denied abdominal pain, bowel habit changes Pertinent positives and negatives as discussed above, a complete review of systems was performed and all other systems are negative. Vitals Signs Reviewed. General: [nontoxic], [no distress], [appears at stated age] Derm: [warm], [dry] Head: [atraumatic], [normocephalic], [symmetric] Eyes: [EOMI], [no lid lag], [anicteric sclera] Mouth: [no lip lesion], [mucus membranes moist] Cardiovascular: [S1S2 reg], [no murmur] Lungs: [CTA bilateral], [no rhonchi, no rales] , [no accessory muscle use] Abdominal: [soft], [ nontender to palpation], [no guarding], [no appreciable organomegaly] Ext: [no gross muscle atrophy], [no edema], [no contractures] Neuro: [ CN II-XI grossly intact], [no focal neuro deficits] Psych: [Alert], [oriented], [appropriate affect] Data Reviewed Today: Pertinent Labs: Reviewed blood cultures, preliminary negative repeat study from 06/19. Leukocytosis still present 11.44, hemoglobin stable at 9, normal platelet count, creatinine stable Assessment and Plan: Sepsis secondary to community-acquired bacterial pneumonia 1/2 blood cultures positive from gram-positive cocci in clusters -Continue vancomycin and cefepime, day 5 of treatment -ID following -IR consulted for possible fluid drainage, cannot perform drainage due to patient being on Eliquis and probably too small collection. -Breathing treatments as needed -Repeat chest x-ray -Follow-up repeat blood cultures from 06/19, preliminary negative Metastatic breast cancer -Oncology following -Fentanyl patch, Dilaudid ordered DVT ppx: Eliquis Anticipated discharge place: Home Anticipated discharge time: 1--2 days Objective - Vital Signs Vital signs: Vital Signs Temp 98.2 F 06/21/24 12:08 Pulse 99 06/21/24 12:08 Resp 16 06/21/24 12:08 BP 134/80 06/21/24 12:08 Pulse Ox 97 06/21/24 12:08 FiO2 Intake & Output 06/20/24 06/21/24 06/21/24 18:59 06:59 18:59 Intake Total 3920 0 Output Total 1 Balance 3919 0 Intake: Oral 3920 0 Output: Stool 1 Other: Voiding Method Toilet # Voids 6 2 # Bowel Movements 1 - Labs CBC & Chem 7: 06/21/24 04:12 06/21/24 04:12 Labs: Abnormal Lab Results - Last 24 Hours (Table) 06/21/24 06/21/24 Range/Units 04:12 04:12 WBC 11.44 H (4.50-10.00) X 10*3/uL RBC 3.02 L (4.10-5.20) X 10*6/uL Hgb 9.0 L (12.0-15.0) g/dL Hct 29.7 L (37.2-46.3) % MCV 98.3 H (80.0-97.0) FL MCHC 30.3 L (32.0-37.0) g/dL RDW 15.3 H (11.5-14.5) % MPV 9.2 L (9.5-12.2) FL NRBC/100 WBC Diff 0.04 H (0.00-0.01) X 10*3/uL Chloride 112 H (98-107) mmol/L Creatinine 0.46 L (0.52-1.04) mg/dL Calcium 7.6 L (8.4-10.2) mg/dL Microbiology - Last 24 Hours (Table) 06/19/24 05:34 Blood Culture - Preliminary Blood 06/19/24 05:45 Gram Stain - Final Sputum Sputum Culture - Final 06/16/24 11:42 Blood Culture Gram Stain - Final Blood Blood Culture - Preliminary
--- NOTE | 2024-06-21 15:54 | XR ---
EXAMINATION TYPE: XR chest 2V DATE OF EXAM: 06/21/2024 3:04 PM COMPARISON: Chest radiographs from CLINICAL INDICATION: Female, 44 years old with history of follow up pneumonia; TECHNIQUE: XR chest 2V Frontal and lateral views of the chest. FINDINGS: Lungs/Pleura: Improved aeration of lungs on today's exam with persistent airspace opacities scattered throughout the lungs. No evidence of pneumothorax or large pleural effusion. Pulmonary vascularity: Unremarkable. Heart/mediastinum: Cardiomediastinal silhouette is unremarkable. Musculoskeletal: No acute osseous pathology. Other findings: None Lines/Tubes: [id number] projecting over the right hemithorax with distal tip at the cavoatrial junction. IMPRESSION: Improved aeration in the right lung base possibly secondary to atelectasis versus pneumonia. Correlat e clinically. [facility], , 06/21/2024 3:51 PM
--- NOTE | 2024-06-21 16:25 | P.PN ---
Subjective Progress Note Date: 06/20/24 Principal diagnosis: Reason for follow-up is fever Patient is a 44-year-old female with a past medical history significant for breast cancer ADHD anxiety depression patient has been on chemotherapy through the right chest wall Mediport for about a year last chemotherapy on 06/10/2024 presenting to the hospital for evaluation of fever sore throat and congestion, patient did have a chest x-ray with elevated hemidiaphragm small joint effusion white count of 11.6 on initial workup. On today's evaluation that is 06/20/2024, Patient is afebrile patient is currently on room air and denies having any shortness of breath, the patient denies any chest pain continue complain of cough but not bringing up significant sputum no nausea vomiting some right-sided abdominal pain but no worsening and no diarrhea. The patient white count is 10.30 creatinine 0.54 vancomycin trough is 26.4 blood culture repeat pending initial blood culture positive for gram-positive cocci ID sensitivities pending Objective - Vital Signs Vital signs: Vital Signs Temp 98.1 F 06/20/24 07:16 Pulse 97 06/20/24 08:40 Resp 18 06/20/24 08:40 BP 128/66 06/20/24 07:16 Pulse Ox 91 L 06/20/24 07:16 FiO2 Intake & Output 06/19/24 06/20/24 06/20/24 18:59 06:59 18:59 Intake Total 2880 1740 540 Output Total 1 1 1 Balance 2879 1739 539 Intake: Intake, IV Titration 1200 Amount Cefepime 2 gm In Sodium 200 Chloride 0.9% 100 ml @ 25 mls/hr IVPB Q8H [facility] Rx#: [id number] Vancomycin 1,500 mg In 1000 Sodium Chloride 0.9% 500 ml 500 ml @ 167 mls/hr IVPB Q8H [facility] Rx#: [id number] Oral 2880 540 540 Output: Stool 1 1 1 Other: Voiding Method Toilet Toilet Toilet # Voids 6 3 - Exam GENERAL DESCRIPTION: Middle-age female lying in bed in no distress RESPIRATORY SYSTEM: Unlabored breathing , decreased breath sounds at bases HEART: S1 S2 regular rate and rhythm , ABDOMEN: Soft , right-sided tenderness EXTREMITIES: No edema feet - Labs CBC & Chem 7: 06/21/24 04:12 06/21/24 04:12 Labs: Abnormal Lab Results - Last 24 Hours (Table) 06/20/24 Range/Units 04:37 WBC 10.30 H (4.50-10.00) X 10*3/uL RBC 2.89 L (4.10-5.20) X 10*6/uL Hgb 8.4 L (12.0-15.0) g/dL Hct 28.2 L (37.2-46.3) % MCV 97.6 H (80.0-97.0) FL MCHC 29.8 L (32.0-37.0) g/dL RDW 15.1 H (11.5-14.5) % MPV 9.4 L (9.5-12.2) FL Immature Gran # 0.30 H (0.00-0.04) X 10*3/uL NRBC/100 WBC Diff 0.03 H (0.00-0.01) X 10*3/uL Microbiology - Last 24 Hours (Table) 06/19/24 05:45 Gram Stain - Preliminary Sputum Sputum Culture - Preliminary 06/16/24 11:34 Blood Culture - Preliminary Blood 06/16/24 11:42 Blood Culture Gram Stain - Preliminary Blood Blood Culture - Preliminary Assessment and Plan (1) Sepsis Current Visit: Yes Status: Acute Code(s): A41.9 - SEPSIS, UNSPECIFIED ORGANISM SNOMED Code(s): 36667192 (2) Pneumonia Current Visit: Yes Status: Acute Priority: High Code(s): J18.9 - PNEUMONIA, UNSPECIFIED ORGANISM SNOMED Code(s): 669526783 Plan: 1patient presented to hospital with sepsis in this patient who did have fever elevated white count tachycardia meeting criteria for SIRS source possible pneumonia as the patient did have predominantly respiratory symptoms with a question of community-acquired versus more resistant gram-negative pneumonia patient also have a port last use on 06/10/2024 will be the source of this fever as well 2-blood culture has been obtained which are currently growing gram-positive with ID sensitivities pending 3-patient did have CT of abdominal pelvis suggestive of right-sided pneumonia and abdominal wall fluid collection for which IR was consulted mention more likely seroma drainage could not be done as the patient is on Eliquis, will review the CT with radiologist tomorrow 4patient did have resolution of the fever patient will continue cefepime and vancomycin, while waiting for the culture to finalize Dictation was produced using [employer] dictation software. please excuse any grammatical, word or spelling errors. Time with Patient: Less than 30
--- NOTE | 2024-06-21 16:27 | P.PN ---
Subjective Progress Note Date: 06/21/24 Principal diagnosis: Reason for follow-up is fever Patient is a 44-year-old female with a past medical history significant for breast cancer ADHD anxiety depression patient has been on chemotherapy through the right chest wall Mediport for about a year last chemotherapy on 06/10/2024 presenting to the hospital for evaluation of fever sore throat and congestion, patient did have a chest x-ray with elevated hemidiaphragm small joint effusion white count of 11.6 on initial workup. On today's evaluation that is 06/21/2024, patient has been afebrile, patient is breathing comfortably and is currently on room air, patient denies having any chest pain or shortness of breath secondary have a cough moderate intensity not bringing up any sputum no nausea vomiting, patient did have a chronic right- sided abdominal pain denies having any worsening. The patient white count is 11.44 creatinine 0.46, sputum culture have been negative Objective - Vital Signs Vital signs: Vital Signs Temp 98.2 F 06/21/24 12:08 Pulse 99 06/21/24 12:08 Resp 16 06/21/24 12:08 BP 134/80 06/21/24 12:08 Pulse Ox 97 06/21/24 12:08 FiO2 Intake & Output 06/20/24 06/21/24 06/21/24 18:59 06:59 18:59 Intake Total 3920 0 Output Total 1 Balance 3919 0 Intake: Oral 3920 0 Output: Stool 1 Other: Voiding Method Toilet # Voids 6 2 # Bowel Movements 1 - Exam GENERAL DESCRIPTION: Middle-age female lying in bed in no distress RESPIRATORY SYSTEM: Unlabored breathing , decreased breath sounds at bases HEART: S1 S2 regular rate and rhythm , ABDOMEN: Soft , right-sided tenderness EXTREMITIES: No edema feet - Labs CBC & Chem 7: 06/21/24 04:12 06/21/24 04:12 Labs: Abnormal Lab Results - Last 24 Hours (Table) 06/21/24 06/21/24 Range/Units 04:12 04:12 WBC 11.44 H (4.50-10.00) X 10*3/uL RBC 3.02 L (4.10-5.20) X 10*6/uL Hgb 9.0 L (12.0-15.0) g/dL Hct 29.7 L (37.2-46.3) % MCV 98.3 H (80.0-97.0) FL MCHC 30.3 L (32.0-37.0) g/dL RDW 15.3 H (11.5-14.5) % MPV 9.2 L (9.5-12.2) FL NRBC/100 WBC Diff 0.04 H (0.00-0.01) X 10*3/uL Chloride 112 H (98-107) mmol/L Creatinine 0.46 L (0.52-1.04) mg/dL Calcium 7.6 L (8.4-10.2) mg/dL Microbiology - Last 24 Hours (Table) 06/19/24 05:34 Blood Culture - Preliminary Blood 06/19/24 05:45 Gram Stain - Final Sputum Sputum Culture - Final 06/16/24 11:42 Blood Culture Gram Stain - Final Blood Blood Culture - Preliminary Assessment and Plan (1) Sepsis Current Visit: Yes Status: Acute Code(s): A41.9 - SEPSIS, UNSPECIFIED ORGANISM SNOMED Code(s): 59211312 (2) Pneumonia Current Visit: Yes Status: Acute Priority: High Code(s): J18.9 - PNEUMONIA, UNSPECIFIED ORGANISM SNOMED Code(s): 079107106 Plan: 1patient presented to hospital with sepsis in this patient who did have fever elevated white count tachycardia meeting criteria for SIRS source possible pn eumonia as the patient did have predominantly respiratory symptoms with a question of community-acquired versus more resistant gram-negative pneumonia patient also have a port last use on 06/10/2024 will be the source of this fever as well 2-blood culture has been obtained which are currently growing gram-positive with ID sensitivities pending 3-patient did have CT of abdominal pelvis suggestive of right-sided pneumonia and abdominal wall fluid collection for which IR was consulted mention more likely seroma drainage could not be done as the patient is on Eliquis, CT was reviewed with radiologist there is a very superficial small collection and the patient did not have any abdominal wall redness or tenderness to the site possible seroma 4patient CT is mostly suggestive of atypical pneumonia with a sputum culture negative I will go ahead and discontinue cefepime start the patient Levaquin urine for Legionella antigen Mycoplasma serology requested 5positive blood culture still waiting for the ID of that pathogen for now continue with the vancomycin Dictation was produced using [employer] software. please excuse any grammatical, word or spelling errors. Time with Patient: Less than 30
[2024-06-21] MEDS: LEVOFLOXACIN 750 MG TAB PO SCH (16:40)
[2024-06-21] MEDS: LORazepam 2 MG/ML INJ IV STA (17:00)
[2024-06-22] MEDS: VANCOMYCIN TROUGH DUE 1 EACH MISC MISCELLANE ONE (09:38)
[2024-06-22 09:55] LABS: African American GFR (CKD) >90 (>60 ml/min/1.73 sqM); Non-African American GFR(CKD) >90 (>60 ml/min/1.73 sqM)
--- NOTE | 2024-06-22 11:55 | P.PN ---
Subjective Progress Note Date: 06/22/24 Hospital Course: a 44-year-old female with past medical history of metastatic breast cancer on chemotherapy, intractable pain of malignancy, who presented with fever, cough and was found to have pneumonia. Patient was admitted for management of sepsis secondary to community-acquired bacterial pneumonia, her initial blood culture showed 1/2 gram-positive cocci, patient was initially started on vancomycin and cefepime, was switched to Levaquin and vancomycin, D is following, awaiting for final cultures given chest port presents. Patient CT IVP was suggestive of abdominal wall fluid collection, IR was consulted and could not drain as patient takes Eliquis, per ID, CT was additionally reviewed with radiologist and fluid collection seems to be very superficial and likely representing seroma, no abdominal wall tenderness or erythema appreciated. ID and oncology consulted Patient was seen and examined at bedside today, she was somewhat better, improved shortness of breath, increased Cough Pertinent positives and negatives as discussed above, a complete review of systems was performed and all other systems are negative. Subjective: Pertinent positives and negatives as discussed above, a complete review of systems was performed and all other systems are negative. Vitals Signs Reviewed. General: [nontoxic], [no distress], [appears at stated age] Derm: [warm], [dry] Head: [atraumatic], [normocephalic], [symmetric] Eyes: [EOMI], [no lid lag], [anicteric sclera] Mouth: [no lip lesion], [mucus membranes moist] Cardiovascular: [S1S2 reg], [no murmur] Lungs: [CTA bilateral], few scattered rhonchi bilaterally, no rales] , [no accessory muscle use] Abdominal: [soft], [ nontender to palpation], [no guarding], [no appreciable organomegaly] Ext: [no gross muscle atrophy], [no edema], [no contractures] Neuro: [ CN II-XI grossly intact], [no focal neuro deficits] Psych: [Alert], [oriented], [appropriate affect] Data Reviewed Today: Pertinent Labs: Reviewed blood cultures, preliminary negative repeat study from 06/19. Assessment and Plan: Sepsis secondary to community-acquired bacterial pneumonia 1/2 blood cultures positive from gram-positive cocci in clusters -Continue vancomycin, continue Levaquin, day 6 of treatment -ID following -IR consulted for possible fluid drainage, cannot perform drainage due to patient being on Eliquis and probably too small collection. -Breathing treatments as needed -Repeat chest x-ray: Improved aeration -Follow-up repeat blood cultures from 06/19, preliminary negative DVT ppx Eliquis Anticipated discharge place: Home Anticipated discharge time: 1--2 days Objective - Vital Signs Vital signs: Vital Signs Temp 97.7 F 06/22/24 07:20 Pulse 90 06/22/24 09:39 Resp 16 06/22/24 07:20 BP 123/87 06/22/24 07:20 Pulse Ox 95 06/22/24 09:30 FiO2 Intake & Output 06/21/24 06/22/24 06/22/24 18:59 06:59 18:59 Intake Total 590 Balance 590 Intake: Oral 590 Other: # Voids 3 - Labs CBC & Chem 7: 06/21/24 04:12 06/22/24 09:32 Labs: Microbiology - Last 24 Hours (Table) 06/16/24 11:34 Blood Culture - Final Blood 06/19/24 05:34 Blood Culture - Preliminary Blood 06/19/24 05:45 Gram Stain - Final Sputum Sputum Culture - Final
--- NOTE | 2024-06-22 13:21 | P.PN ---
Subjective Progress Note Date: 06/22/24 No acute events. Reports feeling improved since admission. Reports wheezing, but breathing treatments are helping. Denies vomiting, tolerating iral intake. Pt afebrile, continues abx, per ID. Objective - Vital Signs Vital signs: Vital Signs Temp 97.7 F 06/22/24 07:20 Pulse 90 06/22/24 09:39 Resp 16 06/22/24 07:20 BP 123/87 06/22/24 07:20 Pulse Ox 95 06/22/24 09:30 FiO2 Intake & Output 06/21/24 06/22/24 06/22/24 18:59 06:59 18:59 Intake Total 590 Balance 590 Intake: Oral 590 Other: # Voids 3 - Constitutional General appearance: Present: average body habitus, no acute distress - EENT Eyes: Present: anicteric sclerae, EOMI ENT: Present: hearing grossly normal - Respiratory Respiratory: bilateral: wheezing (improved ) - Cardiovascular Rhythm: regular - Gastrointestinal General gastrointestinal: Present: soft. Absent: tenderness - Integumentary Integumentary: Absent: cyanotic - Neurologic Neurologic: Present: CNII-XII intact - Psychiatric Psychiatric: Present: A&O x's 3 - Labs CBC & Chem 7: 06/21/24 04:12 06/22/24 09:32 Labs: Microbiology - Last 24 Hours (Table) 06/16/24 11:34 Blood Culture - Final Blood 06/19/24 05:34 Blood Culture - Preliminary Blood 06/19/24 05:45 Gram Stain - Final Sputum Sputum Culture - Final - Imaging and Cardiology Chest x-ray: report reviewed Assessment and Plan (1) Fever of unknown origin Current Visit: Yes Status: Acute Priority: High Code(s): R50.9 - FEVER, UNSPECIFIED SNOMED Code(s): 8927461 (2) Pneumonia Current Visit: Yes Status: Acute Priority: High Code(s): J18.9 - PNEUMONIA, UNSPECIFIED ORGANISM SNOMED Code(s): 676930703 (3) Metastatic adenocarcinoma to breast Current Visit: No Status: Chronic Priority: Medium Code(s): C79.81 - SECONDARY MALIGNANT NEOPLASM OF BREAST SNOMED Code(s): 790935802051628 Plan: Fever of unknown origin: The patient's fever has improved significantly, and she remains afebrile >[address] angiogram was negative for PE, but did show bilateral patchy opacities. Therefore it appears that her fever is most likely due to pneumonia. -Blood culture from 06/16 positive for gram positive cocci which may be contamination, finalized culture pending. Repeat culture on 06/19 and sputum cu lture negative thus far -Counts stable -Repeat CXR on 06/21 showing improved aeration in the right lung base, with persistent scattered airspace opacities -Continue antibiotics per ID Metastatic breast cancer: Treatment on hold, until her acute symptoms resolve. She will resume follow-up with her primary oncologist upon discharge. The lung opacities noted on CT angiogram appear to be inflammatory, rather than metastatic. The appearance, in conjunction with her symptoms, make it much more likely that these represent inflammation/infection, rather than parenchymal metastasis. Sclerotic lesion in the bones are noted, which represent her known bone metastasis Doctor attests: I performed a history and physical examination of this patient, developed impression and plan of care. Discussed with dictator. I agree with dictators note, documented as a scribe.
--- NOTE | 2024-06-22 14:09 | P.PN ---
Subjective Progress Note Date: 06/22/24 Principal diagnosis: Reason for follow-up is fever Patient is a 44-year-old female with a past medical history significant for breast cancer ADHD anxiety depression patient has been on chemotherapy through the right chest wall Mediport for about a year last chemotherapy on 06/10/2024 presenting to the hospital for evaluation of fever sore throat and congestion, patient did have a chest x-ray with elevated hemidiaphragm small joint effusion white count of 11.6 on initial workup. On today's evaluation that is 06/22/2024, Patient is afebrile this morning patient denies having any chest pain shortness of breath cough is decreased in intensity not bring up any sputum no nausea vomiting no abdominal pain no diarrhea. Patient did have a creatinine 0.54 Vanco trough is low at 11.5 urine for Legionella antigen negative one of the blood culture growing gram-positive yesterday waiting for the ID of that pathogen Objective - Vital Signs Vital signs: Vital Signs Temp 97.7 F 06/22/24 07:20 Pulse 90 06/22/24 09:39 Resp 16 06/22/24 07:20 BP 123/87 06/22/24 07:20 Pulse Ox 95 06/22/24 09:30 FiO2 Intake & Output 06/21/24 06/22/24 06/22/24 18:59 06:59 18:59 Intake Total 590 Balance 590 Intake: Oral 590 Other: # Voids 3 - Exam GENERAL DESCRIPTION: Middle-age female lying in bed in no distress RESPIRATORY SYSTEM: Unlabored breathing , decreased breath sounds at bases HEART: S1 S2 regular rate and rhythm , ABDOMEN: Soft , right-sided tenderness EXTREMITIES: No edema feet - Labs CBC & Chem 7: 06/21/24 04:12 06/22/24 09:32 Labs: Microbiology - Last 24 Hours (Table) 06/16/24 11:34 Blood Culture - Final Blood 06/19/24 05:34 Blood Culture - Preliminary Blood 06/19/24 05:45 Gram Stain - Final Sputum Sputum Culture - Final Assessment and Plan (1) Sepsis Current Visit: Yes Status: Acute Code(s): A41.9 - SEPSIS, UNSPECIFIED ORGANISM SNOMED Code(s): 62989569 (2) Pneumonia Current Visit: Yes Status: Acute Priority: High Code(s): J18.9 - PNEUMON IA, UNSPECIFIED ORGANISM SNOMED Code(s): 961068822 (3) Bacteremia Current Visit: Yes Status: Acute Code(s): R78.81 - BACTEREMIA SNOMED Code(s): 5147657 Plan: 1patient presented to hospital with sepsis in this patient who did have fever elevated white count tachycardia meeting criteria for SIRS source possible pneumonia as the patient did have predominantly respiratory symptoms with a question of community-acquired versus more resistant gram-negative pneumonia patient also have a port last use on 06/10/2024 will be the source of this fever as well 2-blood culture has been obtained which are currently growing gram-positive with ID sensitivities pending 3-patient did have CT of abdominal pelvis suggestive of right-sided pneumonia and abdominal wall fluid collection for which IR was consulted mention more like ly seroma drainage could not be done as the patient is on Eliquis, CT was reviewed with radiologist there is a very superficial small collection and the patient did not have any abdominal wall redness or tenderness to the site possible seroma 4patient CT is mostly suggestive of atypical pneumonia with a sputum culture negative patient urine for Legionella antigen negative did have symptomatic im provement we will continue with the Levaquin 5positive blood culture still waiting for the ID of that pathogen to determine significance as the patient did have a Mediport for now continue with the v ancomycin Discussed with the admitting team Dictation was produced using [employer] dictation software. please excuse any grammatical, word or spelling errors. Time with Patient: Less than 30
[2024-06-22] MEDS: VANCOMYCIN 1,750 MG in SODIUM CHLORIDE 0.9% 500 ML 500 ML IVPB SCH (21:59)
[2024-06-23 08:46] LABS: HCT 32.4 % (37.2-46.3); HGB 9.6 g/dL (12.0-15.0); MCHC 29.6 g/dL (32.0-37.0); MCV 97.9 FL (80.0-97.0); Mean Platelet Volume 9.4 FL (9.5-12.2); NRBC Per 100 WBC 0.05 X 10*3/uL (0.00-0.01); Platelet Count 256 X 10*3/uL (140-440); RBC 3.31 X 10*6/uL (4.10-5.20); RDW 15.5 % (11.5-14.5); WBC 12.78 X 10*3/uL (4.50-10.00)
[2024-06-23 08:53] LABS: ALT 13 U/L (8-44); AST 17 U/L (13-35); Albumin 3.5 g/dL (3.8-4.9); Albumin/Globulin Ratio 1.75 Ratio (1.60-3.17); Alkaline Phosphatase 165 U/L (41-126); Calcium 8.6 mg/dL (8.7-10.3); Carbon Dioxide 25.4 mmol/L (21.6-31.8); Chloride 104 mmol/L (96-109); Glucose 106 mg/dL (70-110); Potassium 4.7 mmol/L (3.5-5.5); Sodium 140 mmol/L (135-145); Total Bilirubin <0.2 mg/dL (0.3-1.2); Total Protein 5.5 g/dL (6.2-8.2)
[2024-06-23 09:20] LABS: Band Neutrophils % 8 %; Basophils # (M) 0 X 10*3/uL (0.00-0.10); Eosinophils # (M) 0.13 X 10*3/uL (0.04-0.35); Lymphocytes # (M) 1.53 X 10*3/uL (0.90-5.00); Metamyelocytes % 2 % (0-0); Monocytes # (M) 0.51 X 10*3/uL (0.20-1.00); Myelocytes % 1 % (0-0); Neutrophils # (M) 10.22 X 10*3/uL (1.80-7.70); Neutrophils % (M) 72 %; Toxic Granulation 2+
--- NOTE | 2024-06-23 13:02 | P.DS ---
Providers Date of admission: 06/16/24 11:26 Attending physician: Chu Farooq Consults: 06/16/24 11:43 Consult Physician Urgent Consulting Provider: Lew Vázquez Consult Reason/Comments: fever/hx breast cancer Do you want consulting provider notified?: Yes 06/16/24 12:46 Consult Physician Routine Consulting Provider: Lauri Soto Consult Reason/Comments: immunocomp. pt w/ fevers Do you want consulting provider notified?: Yes Primary care physician: Prince Pruett [facility] Course: a 44-year-old female with past medical history of metastatic breast cancer on chemotherapy, intractable pain of malignancy, who presented with fever, cough and was found to have pneumonia. Patient was admitted for management of sepsis secondary to community-acquired bacterial pneumonia, her initial blood culture showed 1/2 gram-positive cocci, patient was initially started on vancomycin and cefepime, was switched to Levaquin and vancomycin, D is following, awaiting for final cultures given chest port presents. Patient CT IVP was suggestive of abdominal wall fluid collection, IR was consulted and could not drain as patient takes Eliquis, per ID, CT was additionally reviewed with radiologist and fluid collection seems to be very superficial and likely representing seroma, no abdominal wall tenderness or erythema appreciated. 1/2 bcx on 06/23 had grown micrococcus. the patient was discharged home 06/23 with po levofloxacin. Assessment: Sepsis secondary to community-acquired bacterial pneumonia 1/2 blood cultures positive for microccous- skin contamint. continue levofloxacin as prescribed. d/c further iv vancomycin. f/u with oncology outpatient when to restart antibx Patient Condition at Discharge: Stable Plan - Discharge Summary Discharge Rx Participant: No New Discharge Prescriptions: New Levofloxacin [Levaquin] 750 mg PO DAILY 7 Days #7 tab Continue Ondansetron Odt [Zofran ODT] 8 mg PO Q6H PRN PRN Reason: Nausea And Vomiting Temazepam 22.5 mg PO HS Apixaban [Eliquis] 5 mg PO BID FLUoxetine HCL [Sarafem] 60 mg PO DAILY LORazepam [Ativan] 1 mg PO Q4H PRN PRN Reason: nausea/anxiety/panic attacks Mirtazapine 30 mg PO HS fentaNYL 25MCG/HR PATCH [Duragesic 25MCG/HR] 1 patch TRANSDERM Q72H HYDROmorphone [Dilaudid] 4 mg PO Q4H PRN PRN Reason: Severe Pain (Scale 7 To 10) Dicyclomine [Bentyl] 20 mg PO BID Pegfilgrastim [Neulasta] 6 mg SQ Q28D fentaNYL 12MCG/HR PATCH [Duragesic 12MCG/HR] 1 patch TRANSDERM Q72H Discontinued OLANZapine [ZyPREXA] 7.5 mg PO DIRECTED Discharge Medication List Apixaban [Eliquis] 5 mg PO BID 09/07/23 [History] Dicyclomine [Bentyl] 20 mg PO BID 09/07/23 [History] FLUoxetine HCL [Sarafem] 60 mg PO DAILY 09/07/23 [History] HYDROmorphone [Dilaudid] 4 mg PO Q4H PRN 09/07/23 [History] Ondansetron Odt [Zofran ODT] 8 mg PO Q6H PRN 09/07/23 [History] Temazepam 22.5 mg PO HS 09/07/23 [History] fentaNYL 25MCG/HR PATCH [Duragesic 25MCG/HR] 1 patch TRANSDERM Q72H 09/07/23 [History] LORazepam [Ativan] 1 mg PO Q4H PRN 06/16/24 [History] Mirtazapine 30 mg PO HS 06/16/24 [History] Pegfilgrastim [Neulasta] 6 mg SQ Q28D 06/16/24 [History] fentaNYL 12MCG/HR PATCH [Duragesic 12MCG/HR] 1 patch TRANSDERM Q72H 06/16/24 [History] Levofloxacin [Levaquin] 750 mg PO DAILY 7 Days #7 tab 06/23/24 [Rx] Follow up Appointment(s)/Referral(s): Prince Simmons MD [Primary Care Provider] - 1-2 days Discharge Disposition: HOME SELF-CARE Care Plan Goals (MU): continue levofloxacin as prescribed
--- NOTE | 2024-06-23 13:14 | P.PN ---
Subjective Progress Note Date: 06/23/24 No acute events. Reports feeling improved since admission. Wheezing SOB improved. Denies vomiting, tolerating iral intake. Pt afebrile, continues abx, per ID. Objective - Vital Signs Vital signs: Vital Signs Temp 98.3 F 06/23/24 07:40 Pulse 98 06/23/24 11:58 Resp 16 06/23/24 07:40 BP 122/79 06/23/24 07:40 Pulse Ox 93 L 06/23/24 08:36 FiO2 Intake & Output 06/22/24 06/23/24 06/23/24 18:59 06:59 18:59 Intake Total 540 Balance 540 Intake: Oral 540 - Constitutional General appearance: Present: no acute distress - EENT Eyes: Present: anicteric sclerae, EOMI ENT: Present: hearing grossly normal - Respiratory Respiratory: bilateral: CTA - Cardiovascular Rhythm: regular - Gastrointestinal General gastrointestinal: Present: soft. Absent: tenderness - Integumentary Integumentary: Absent: cyanotic - Neurologic Neurologic: Present: CNII-XII intact - Musculoskeletal Musculoskeletal: Present: strength equal bilaterally - Psychiatric Psychiatric: Present: A&O x's 3 - Labs CBC & Chem 7: 06/23/24 05:08 06/23/24 05:08 Labs: Abnormal Lab Results - Last 24 Hours (Table) 06/23/24 06/23/24 Range/Units 05:08 05:08 WBC 12.78 H (4.50-10.00) X 10*3/uL RBC 3.31 L (4.10-5.20) X 10*6/uL Hgb 9.6 L (12.0-15.0) g/dL Hct 32.4 L (37.2-46.3) % MCV 97.9 H (80.0-97.0) FL MCHC 29.6 L (32.0-37.0) g/dL RDW 15.5 H (11.5-14.5) % MPV 9.4 L (9.5-12.2) FL Neutrophils # (Manual) 10.22 H (1.80-7.70) X 10*3/uL NRBC/100 WBC Diff 0.05 H (0.00-0.01) X 10*3/uL Toxic Granulation 2+ A Calcium 8.6 L (8.7-10.3) mg/dL Total Bilirubin <0.2 L (0.3-1.2) mg/dL Alkaline Phosphatase 165 H (41-126) U/L Total Protein 5.5 L (6.2-8.2) g/dL Albumin 3.5 L (3.8-4.9) g/dL Microbiology - Last 24 Hours (Table) 06/19/24 05:34 Blood Culture - Preliminary Blood Assessment and Plan (1) Fever of unknown origin Current Visit: Yes Status: Acute Priority: High Code(s): R50.9 - FEVER, UNSPECIFIED SNOMED Code(s): 5232976 (2) Pneumonia Current Visit: Yes Status: Acute Priority: High Code(s): J18.9 - PNEUMONIA, UNSPECIFIED ORGANISM SNOMED Code(s): 772101541 (3) Metastatic adenocarcinoma to breast Current Visit: No Status: Chronic Priority: Medium Code(s): C79.81 - SECONDARY MALIGNANT NEOPLASM OF BREAST SNOMED Code(s): 887838170770363 Plan: Fever of unknown origin: The patient's fever now resolved, afebrile >[address] angiogram was negative for PE, but did show bilateral patchy opacities. Therefore it appears that her fever is most likely due to pneumonia. -Blood culture from 06/16 positive for gram positive cocci which may be contamination, finalized culture pending. Repeat culture on 06/19 and sputum culture negative thus far. Discussed pending blood culture with primary RN today, she will contact lab to see if results can be finalized in EMR -Counts stable -Repeat CXR on 06/21 showing improved aeration in the right lung base, with persistent scattered airspace opacities -Continue antibiotics per ID Metastatic breast cancer: Treatment on hold, until her acute symptoms resolve. She will resume follow-up with her primary oncologist upon discharge. The lung opacities noted on CT angiogram appear to be inflammatory, rather than metastatic. The appearance, in conjunction with her symptoms, make it much more likely that these represent inflammation/infection, rather than parenchymal metastasis. Sclerotic lesion in the bones are noted, which represent her known bone metastasis Patient is cleared for discharge from hem/onc standpoint, once cleared by IM and other consulted medical specialities Doctor attests: I performed a history and physical examination of this patient, developed impression and plan of care. Discussed with dictator. I agree with dictators note, documented as a scribe.
[2024-06-23 13:45] VITALS: BMI 31.9
[2024-06-23 14:05] VITALS: BP 119/72; PULSE 92; RESP 17; TEMP 97.5
[2024-06-24] MEDS ORDERED: VANCOMYCIN TROUGH DUE 1 EACH MISC MISCELLANE ONE (09:00)
--- NOTE | 2024-06-24 13:09 | P.PN ---
Subjective Progress Note Date: 06/23/24 Principal diagnosis: Reason for follow-up is fever Patient is a 44-year-old female with a past medical history significant for breast cancer ADHD anxiety depression patient has been on chemotherapy through the right chest wall Mediport for about a year last chemotherapy on 06/10/2024 presenting to the hospital for evaluation of fever sore throat and congestion, patient did have a chest x-ray with elevated hemidiaphragm small joint effusion white count of 11.6 on initial workup. On today's evaluation that is 06/23/2024,the patient denies any fever or any chills, patient is breathing comfortably on room air, the patient denies chest pain shortness of breath and cough is decreased intensity no nausea vomiting abdominal pain or diarrhea patient mention feeling better wants to go home. Patient white count is 12.78, creatinine 0.6 blood culture repeat has been n egative initial blood culture with micrococcus Objective - Vital Signs Vital signs: Vital Signs Temp 98.3 F 06/23/24 07:40 Pulse 98 06/23/24 08:47 Resp 16 06/23/24 07:40 BP 122/79 06/23/24 07:40 Pulse Ox 93 L 06/23/24 08:36 FiO2 Intake & Output 06/22/24 06/23/24 06/23/24 18:59 06:59 18:59 Intake Total 540 Balance 540 Intake: Oral 540 - Exam GENERAL DESCRIPTION: Middle-age female lying in bed in no distress RESPIRATORY SYSTEM: Unlabored breathing , decreased breath sounds at bases HEART: S1 S2 regular rate and rhythm , ABDOMEN: Soft , right-sided tenderness EXTREMITIES: No edema feet - Labs CBC & Chem 7: 06/23/24 05:08 06/23/24 05:08 Labs: Abnormal Lab Results - Last 24 Hours (Table) 06/23/24 06/23/24 Range/Units 05:08 05:08 WBC 12.78 H (4.50-10.00) X 10*3/uL RBC 3.31 L (4.10-5.20) X 10*6/uL Hgb 9.6 L (12.0-15.0) g/dL Hct 32.4 L (37.2-46.3) % MCV 97.9 H (80.0-97.0) FL MCHC 29.6 L (32.0-37.0) g/dL RDW 15.5 H (11.5-14.5) % MPV 9.4 L (9.5-12.2) FL Neutrophils # (Manual) 10.22 H (1.80-7.70) X 10*3/uL NRBC/100 WBC Diff 0.05 H (0.00-0.01) X 10*3/uL Toxic Granulation 2+ A Calcium 8.6 L (8.7-10.3) mg/dL Total Bilirubin <0.2 L (0.3-1.2) mg/dL Alkaline Phosphatase 165 H (41-126) U/L Total Protein 5.5 L (6.2-8.2) g/dL Albumin 3.5 L (3.8-4.9) g/dL Microbiology - Last 24 Hours (Table) 06/19/24 05:34 Blood Culture - Preliminary Blood Assessment and Plan (1) Sepsis Status: Acute Code(s): A41.9 - SEPSIS, UNSPECIFIED ORGANISM SNOMED Code(s): 79875405 (2) Pneumonia Status: Acute Priority: High Code(s): J18.9 - PNEUMONIA, UNSPECIFIED ORGANISM SNOMED Code(s): 571588975 (3) Bacteremia Status: Acute Code(s): R78.81 - BACTEREMIA SNOMED Code(s): 3320292 Plan: 1patient presented to hospital with sepsis in this patient who did have fever elevated white count tachycardia meeting criteria for SIRS source possible pneumonia as the patient did have predominantly respiratory symptoms with a question of community-acquired versus more resistant gram-negative pneumonia patient also have a port last use on 06/10/2024 will be the source of this fever as well 2-blood culture has been obtained which are currently growing gram-positive with ID sensitivities pending 3-patient did have CT of abdominal pelvis suggestive of right-sided pneumonia and abdominal wall fluid collection for which IR was consulted mention more likely seroma drainage could not be done as the patient is on Eliquis, CT was reviewed with radiologist there is a very superficial small collection and the patient did not have any abdominal wall redness or tenderness to the site possible seroma 4patient CT is mostly suggestive of atypical pneumonia with a sputum culture negative patient urine for Legionella antigen negative did have symptomatic improvement with the Levaquin, which we will continue for 7 days on discharge 5positive blood culture with micrococcus more likely contamination blood culture repeat has been negative no need for vancomycin which will be discontinued plan of care discussed with the covering admitting physician working on discharge Dictation was produced using [employer] dictation software. please excuse any grammatical, word or spelling errors. Time with Patient: Less than 30
== END 2024-06-23 15:16 | disposition home or self-care (01) | DRG 871 ==
LOC: EC 08:17 → 5NMEDONC 11:26
PROVIDERS: ADMIT Student in an Organized Health Care Education/Training Program; ATTEND Student in an Organized Health Care Education/Training Program
DX: A41.9 Sepsis, unspecified organism (principal); J15.9 Unspecified bacterial pneumonia; C78.7 Secondary malignant neoplasm of liver and intrahepatic bile duct; C79.51 Secondary malignant neoplasm of bone; D84.9 Immunodeficiency, unspecified; F32.A Depression, unspecified; D63.0 Anemia in neoplastic disease; G89.3 Neoplasm related pain (acute) (chronic); K59.00 Constipation, unspecified; F90.9 Attention-deficit hyperactivity disorder, unspecified type; F41.9 Anxiety disorder, unspecified; Z79.01 Long term (current) use of anticoagulants; Z79.891 Long term (current) use of opiate analgesic; Z79.899 Other long term (current) drug therapy; Z17.421 Hormone receptor negative with human epidermal growth factor receptor 2 negative status; Z85.3 Personal history of malignant neoplasm of breast; Z86.718 Personal history of other venous thrombosis and embolism; Z88.8 Allergy status to other drugs, medicaments and biological substances; Z91.041 Radiographic dye allergy status
CPT/HCPCS: 36415; 71046; 71275; 74176; 78582; 80048; 80053; 80202; 81003; 82565; 83605; 84145; 85025; 85027; 85610; 86663; 86664; 86665; 86738; 87040; 87070; 87205; 87449; 87636; 87651; 93005; 94640; 94760; 96361; 96365; 96366; 96367; 96375; 99285

== ENCOUNTER 2024-11-16 05:27 | Inpatient (IN) | payer BC ==
[2024-11-16] MEDS: ACETAMINOPHEN TAB 325 MG TAB PO STA (06:06)
--- NOTE | 2024-11-16 06:07 | ED ---
General Adult HPI - General Chief complaint: Chest Pain Stated complaint: Chemo Pt -Fever,EBENEZER Time Seen by Provider: 11/16/24 05:44 Source: patient Limitations: no limitations - History of Present Illness Initial comments: This patient is a 44-year-old woman with stage IV breast cancer, metastatic to liver and bones, who is currently receiving chemotherapy, last treatment ([facility]). 2 days ago she started to have some fevers and called her oncologist who had her start taking levofloxacin. The patient states that the temperature was higher tonight, she was having some cough and some dyspnea with a heavy feeling on her chest, and she therefore felt she should have evaluation here. Onset/Timin -: days(s) Location: chest Radiation: non-radiation Quality: other (Heavy feeling) Consistency: constant Improves with: none Worsens with: none Associated Symptoms: cough, fever/chills Treatments Prior to Arrival: other (Levofloxacin) - Related Data Home Medications Medication Instructions Recorded Confirmed Apixaban [Eliquis] 5 mg PO BID 09/07/23 11/16/24 FLUoxetine HCL [Sarafem] 60 mg PO HS 09/07/23 11/16/24 Ondansetron Odt [Zofran ODT] 8 mg PO Q6H PRN 09/07/23 11/16/24 Temazepam 22.5 mg PO HS 09/07/23 11/16/24 fentaNYL 25MCG/HR PATCH [Duragesic 1 patch TRANSDERM Q72H 09/07/23 11/16/24 25MCG/HR] LORazepam [Ativan] 1 mg PO Q6H PRN 06/16/24 11/16/24 Mirtazapine 30 mg PO HS 06/16/24 11/16/24 Pegfilgrastim [Neulasta] 6 mg SQ Q21D 06/16/24 11/16/24 HYDROmorphone HCL [Dilaudid] 8 mg PO Q4H 11/16/24 11/16/24 OLANZapine [ZyPREXA] 7.5 mg PO DIRECTED 11/16/24 11/16/24 Prochlorperazine [Compazine] 10 mg PO Q6H PRN 11/16/24 11/16/24 fentaNYL 100MCG/HR PATCH 1 patch TRANSDERM Q72H 11/16/24 11/16/24 [Duragesic 100MCG/HR] oxyBUTYnin chloride [Ditropan] 5 mg PO BID 11/16/24 11/16/24 Previous Rx's Medication Instructions Recorded Acetaminophen Tab [Tylenol] 650 mg PO Q4HR PRN tab 11/20/24 cefuroxime axetiL [Ceftin] 500 mg PO BID #14 tab 11/20/24 guaiFENesin [Mucinex] 1,200 mg PO Q12HR tab 11/20/24 polyethylene glycoL 3350 [Miralax] 17 gm PO DAILY PRN packet 11/20/24 Allergies Allergy/AdvReac Type Severity Reaction Status Date / Time alpelisib [From Piqray] Allergy Rash/Hives Verified 11/16/24 08:08 Iodinated Contrast Media Allergy Rash/Hives Verified 11/16/24 08:08 [Iodinated Contrast- Oral and IV Dye] Review of Systems ROS Statement: Those systems with pertinent positive or pertinent negative responses have been documented in the HPI. ROS Other: All systems not noted in ROS Statement are negative. Constitutional: Reports: fever, chills. Denies: weakness Eyes: Denies: eye discharge ENT: Denies: throat pain, congestion Respiratory: Reports: cough, dyspnea. Denies: wheezes, hemoptysis Cardiovascular: Reports: chest pain. Denies: palpitations, orthopnea, edema, syncope Gastrointestinal: Denies: abdominal pain, nausea, vomiting, diarrhea, constipation Genitourinary: Denies: dysuria, frequency, hematuria Musculoskeletal: Denies: back pain Skin: Denies: rash Neurological: Denies: headache, weakness, numbness Past Medical History Past Medical History: Cancer Additional Past Medical History / Comment(s): breast cancer History of Any Multi-Drug Resistant Organisms: None Reported Past Surgical History: Breast Surgery, Section, Hysterectomy Additional Past Surgical History / Comment(s): double mastectomy Additional Past Anesthesia/Blood Transfusion Reaction / Comment(s): na Past Psychological History: ADD/ADHD, Anxiety, Depression Smoking Status: Never smoker Past Alcohol Use History: Occasional Past Drug Use History: None Reported - Past Family History Father Family Medical History: Deep Vein Thrombosis (DVT), Hyperlipidemia, Hypertension Mother Additional Family Medical History / Comment(s): osteoporosis, glaucoma General Exam Limitations: no limitations General appearance: alert, in no apparent distress Head exam: Present: atraumatic, normocephalic Eye exam: Present: normal appearance. Absent: scleral icterus, conjunctival injection ENT exam: Present: mucous membranes dry Neck exam: Present: normal inspection, full ROM Respiratory exam: Present: rales. Absent: respiratory distress, wheezes, rhonchi, stridor, accessory muscle use Cardiovascular Exam: Present: normal rhythm, tachycardia, normal heart sounds. Absent: systolic murmur, diastolic murmur, rubs, gallop GI/Abdominal exam: Present: soft. Absent: distended, tenderness, guarding, rebound, rigid, mass Extremities exam: Present: normal inspection, normal capillary refill. Absent: pedal edema, calf tenderness Back exam: Present: normal inspection. Absent: CVA tenderness (R), CVA tenderness (L) Neurological exam: Present: alert Skin exam: Present: warm, dry, intact, normal color. Absent: rash Course Vital Signs 11/16/24 11/16/24 11/16/24 05:29 05:34 05:40 Temperature 100 F H 100.3 F H Pulse Rate 132 H 113 H Respiratory 18 16 16 Rate Blood Pressure 106/71 141/88 O2 Sat by Pulse 92 L 95 Oximetry 11/16/24 11/16/24 11/16/24 07:00 07:50 10:10 Temperature 98.5 F 98.2 F 98.6 F Pulse Rate 72 96 101 H Respiratory 18 18 18 Rate Blood Pressure 112/73 111/73 111/72 O2 Sat by Pulse 93 L 96 99 Oximetry 11/16/24 11/16/24 11/16/24 12:00 13:51 16:35 Temperature 103.1 F H 101.3 F H Pulse Rate 76 112 H Respiratory 18 18 Rate Blood Pressure 128/94 O2 Sat by Pulse 96 Oximetry 11/16/24 17:31 Temperature 99.5 F Pulse Rate 93 Respiratory 16 Rate Blood Pressure 100/68 O2 Sat by Pulse 96 Oximetry EKG Findings - EKG Results: EKG: interpreted by ERMFlynn, sinus rhythm, normal axis, normal QRS EKG shows: tachycardia (Rate 124 bpm) - Blocks, [place], Hypertrophy, ST Abn: Repolarization changes or abnormalities: ST or T wave suggestive of ischemia (Anterolateral leads) Medical Decision Making - Medical Decision Making The patient had chest x-ray that I interpreted to show right lower pneumonia. Patient is a 44-year-old woman with stage IV breast cancer receiving active chemotherapy who presents with fever and found to have pneumonia. The patient is started on additional antibiotic coverage. Case is discussed with the sound physician and patient will be admitted for further antibiotic and fluid therapy. Was pt. sent in by a medical professional or institution (, [facility], TOURIST GUIDE, urgent care, hospital, or correction...) When possible be specific @ -[No] Did you speak to anyone other than the patient for history (EMS, parent, family, police, friend...)? What history was obtained from this source @ -[No] Did you review nursing and triage notes (agree or disagree)? Why? @ -[I reviewed and agree with nursing and triage notes] Were old charts reviewed (outside hosp., previous admission, EMS record, old EKG, old radiological studies, urgent care reports/EKG's, correction records)? Report findings @ -[No old charts were reviewed] Differential Diagnosis (chest pain, altered mental status, abdominal pain women, abdominal pain men, vaginal bleeding, weakness, fever, dyspnea, syncope, headache, dizziness, GI bleed, back pain, seizure, CVA, palpatations, mental health, musculoskeletal)? @ -Differential Fever: Pneumonia, viral URI, endocarditis, myocarditis, pericarditis, otitis, sinusitis, peritonsillar Abscess, retropharyngeal Abscess, epiglottitis, peritonitis, appendicitis, Celeste cystitis, diverticulitis, hepatitis, colitis, UTI, PID, TOA, pyelonephritis, prostatitis, epididymitis, meningitis, encephalitis, pulmonary embolism, CVA, thyroid storm, pancreatitis, adrenal crisis, cavernous sinus thrombosis, this is not meant to be an all-inclusive list. EKG interpreted by me (3pts min.). @ -[I interpreted as above] X-rays interpreted by me (1pt min.). @ -I interpreted as above CT interpreted by me (1pt min.). @ -[None done] U/S interpreted by me (1pt. min.). @ -[None done] What testing was considered but not performed or refused? (CT, X-rays, U/S, labs)? Why? @ -[None] What meds were considered but not given or refused? Why? @ -[None] Did you discuss the management of the patient with other professionals (professionals i.e. , PA, TOURIST GUIDE, lab, RT, psych nurse, protective services social worker, ham sawyer, teacher, strategic intelligence officer, telephonic nurse case manager)? Give summary @ -[Case discussed with admitting physician and treatment recommendations are incorporated Was smoking cessation discussed for >3mins.? @ -[No] Was critical care preformed (if so, how long)? @ -[Yes, 35 minutes Were there social determinants of health that impacted care today? How? (Homelessness, low income, unemployed, alcoholism, drug addiction, transportation, low edu. Level, literacy, decrease access to med. care, fpc, rehab)? @ -[No] Was there de-escalation of care discussed even if they declined (Discuss DNR or withdrawal of care, Hospice)? DNR status @ -[No] What co-morbidities impacted this encounter? (DM, HTN, Smoking, COPD, CAD, Cancer, CVA, ARF, Chemo, Hep., AIDS, mental health diagnosis, sleep apnea, morbid obesity)? @ -[Metastatic breast cancer, active chemotherapy Was patient admitted / discharged? Hospital course, mention meds given and route, prescriptions, significant lab abnormalities, going to OR and other pertinent info. @ -[As above Undiagnosed new problem with uncertain prognosis? @ -[No] Drug Therapy requiring intensive monitoring for toxicity (Heparin, Nitro, Insulin, Cardizem)? @ -[No] Were any procedures done? @ -[No] Diagnosis/symptom? @ -[Acute pneumonia Metastatic breast cancer with active chemotherapy Sepsis Acute, or Chronic, or Acute on Chronic? @ -[Acute Uncomplicated (without systemic symptoms) or Complicated (systemic symptoms)? @ -[Uncomplicated Side effects of treatment? @ -[No] Exacerbation, Progression, or Severe Exacerbation? @ -[No] Poses a threat to life or bodily function? How? (Chest pain, [place], [place], pneumonia, PE, COPD, DKA, ARF, appy, cholecystitis, CVA, Diverticulitis, Homicidal, Suicidal, threat to staff... and all critical care pts) @ -Yes significant risk of morbidity and mortality associated with sepsis and active chemotherapy patient All treatments are based on ideal body weight as in ED triage - Lab Data Result diagrams: 11/19/24 06:04 11/19/24 06:04 Lab Results 11/16/24 11/16/24 11/16/24 Range/Units 05:53 05:53 05:53 WBC 5.44 (4.50-10.00) 10*3/uL RBC 3.92 L (4.10-5.20) 10*6/uL Hgb 11.9 L (12.0-15.0) g/dL Hct 36.6 L (37.2-46.3) % MCV 93.4 (80.0-97.0) fL MCH 30.4 (27.0-32.0) pg MCHC 32.5 (32.0-37.0) g/dL Plt Count 156 (140-440) 10*3/uL MPV 10.4 (9.5-12.2) fL Immature Gran % (Auto) 0.6 % Neutrophils % 91.9 % Lymphocytes % 3.3 % Monocytes % 2.9 % Eosinophils % 0.6 % Basophils % 0.7 % Immature Gran # 0.03 (0.00-0.04) 10*3/uL Neutrophils # 5.00 (1.80-7.70) 10*3/uL Lymphocytes # 0.18 L (0.90-5.00) 10*3/uL Monocytes # 0.16 L (0.20-1.00) 10*3/uL Eosinophils # 0.03 L (0.04-0.35) 10*3/uL Basophils # 0.04 (0.00-0.10) 10*3/uL PT 10.5 (10.0-12.5) sec INR 0.9 (<1.2) APTT 25.5 (22.0-30.0) sec Sodium 133 L (137-145) mmol/L Potassium 4.0 (3.5-5.1) mmol/L Chloride 100 (98-107) mmol/L Carbon Dioxide 21 L (22-30) mmol/L Anion Gap 12 mmol/L BUN 15 (7-17) mg/dL Creatinine 0.65 (0.52-1.04) mg/dL Est GFR (CKD-EPI)AfAm >90 (>60 ml/min/1.73 sqM) Est GFR (CKD-EPI)NonAf >90 (>60 ml/min/1.73 sqM) Glucose 141 H (74-99) mg/dL Plasma Lactic Acid Cecilio (0.7-2.0) mmol/L Calcium 9.1 (8.4-10.2) mg/dL Total Bilirubin 0.6 (0.2-1.3) mg/dL AST 62 H (14-36) U/L ALT 46 H (4-34) U/L Alkaline Phosphatase 297 H (38-126) U/L Troponin I (0.000-0.034) ng/mL Total Protein 6.8 (6.3-8.2) g/dL Albumin 4.1 (3.5-5.0) g/dL Influenza Type A (PCR) (Not Detectd) Influenza Type B (PCR) (Not Detectd) RSV (PCR) (Not Detectd) SARS-CoV-2 (PCR) (Not Detectd) 11/16/24 11/16/24 11/16/24 Range/Units 05:53 05:55 06:00 WBC (4.50-10.00) 10*3/uL RBC (4.10-5.20) 10*6/uL Hgb (12.0-15.0) g/dL Hct (37.2-46.3) % MCV (80.0-97.0) fL MCH (27.0-32.0) pg MCHC (32.0-37.0) g/dL Plt Count (140-440) 10*3/uL MPV (9.5-12.2) fL Immature Gran % (Auto) % Neutrophils % % Lymphocytes % % Monocytes % % Eosinophils % % Basophils % % Immature Gran # (0.00-0.04) 10*3/uL Neutrophils # (1.80-7.70) 10*3/uL Lymphocytes # (0.90-5.00) 10*3/uL Monocytes # (0.20-1.00) 10*3/uL Eosinophils # (0.04-0.35) 10*3/uL Basophils # (0.00-0.10) 10*3/uL PT (10.0-12.5) sec INR (<1.2) APTT (22.0-30.0) sec Sodium (137-145) mmol/L Potassium (3.5-5.1) mmol/L Chloride (98-107) mmol/L Carbon Dioxide (22-30) mmol/L Anion Gap mmol/L BUN (7-17) mg/dL Creatinine (0.52-1.04) mg/dL Est GFR (CKD-EPI)AfAm (>60 ml/min/1.73 sqM) Est GFR (CKD-EPI)NonAf (>60 ml/min/1.73 sqM) Glucose (74-99) mg/dL Plasma Lactic Acid Cecilio 1.3 (0.7-2.0) mmol/L Calcium (8.4-10.2) mg/dL Total Bilirubin (0.2-1.3) mg/dL AST (14-36) U/L ALT (4-34) U/L Alkaline Phosphatase (38-126) U/L Troponin I <0.012 (0.000-0.034) ng/mL Total Protein (6.3-8.2) g/dL Albumin (3.5-5.0) g/dL Influenza Type A (PCR) Not Detected (Not Detectd) Influenza Type B (PCR) Not Detected (Not Detectd) RSV (PCR) Not Detected (Not Detectd) SARS-CoV-2 (PCR) Not Detected (Not Detectd) Disposition Clinical Impression: Pneumonia, Sepsis, Fever Disposition: ADMITTED IP TO THIS [facility] Condition: Stable Is patient prescribed a controlled substance at d/c from ED?: No
[2024-11-16] MEDS: LACTATED RINGERS 1,000 ML IV SCH ×2 (06:09→07:02)
[2024-11-16 06:29] LABS: Basophils # (A) 0.04 10*3/uL (0.00-0.10); Basophils % (A) 0.7 %; Eosinophils # (A) 0.03 10*3/uL (0.04-0.35); Eosinophils % (A) 0.6 %; HCT 36.6 % (37.2-46.3); HGB 11.9 g/dL (12.0-15.0); Lymphocytes # (A) 0.18 10*3/uL (0.90-5.00); Lymphocytes % (A) 3.3 %; MCH 30.4 pg (27.0-32.0); MCHC 32.5 g/dL (32.0-37.0); MCV 93.4 fL (80.0-97.0); Mean Platelet Volume 10.4 fL (9.5-12.2); Monocytes # (A) 0.16 10*3/uL (0.20-1.00); Monocytes % (A) 2.9 %; Neutrophils % (A) 91.9 %; Platelet Count 156 10*3/uL (140-440); RBC 3.92 10*6/uL (4.10-5.20); RDW 14.7 % (11.5-14.5); WBC 5.44 10*3/uL (4.50-10.00)
--- NOTE | 2024-11-16 06:32 | XR ---
EXAMINATION TYPE: XR chest 2V DATE OF EXAM: 11/16/2024 6:13 AM COMPARISON: 07-13 CLINICAL INDICATION: Female, 44 years old with history of Fever, Chest pain TECHNIQUE: XR chest 2V views of the chest are obtained. FINDINGS: There are patchy perihilar infiltrates with somewhat of a nodular component right medial lung base. C orrelate for underlying pneumonia. Follow-up until resolution is advised. MediPort catheter unchanged in position. No evidence for pneumothorax. No pleural effusion. The cardiac silhouette size is within normal limits. The osseous structures are grossly intact. IMPRESSION: 1. There are patchy perihilar infiltrates with somewhat of a nodular component right medial lung bas e. Correlate for underlying pneumonia. Follow-up until resolution is advised. [facility], , 11/16/2024 6:29 AM
[2024-11-16 06:39] LABS: ALT 46 U/L (4-34); AST 62 U/L (14-36); African American GFR (CKD) >90 (>60 ml/min/1.73 sqM); Albumin 4.1 g/dL (3.5-5.0); Alkaline Phosphatase 297 U/L (38-126); Anion Gap 12 mmol/L; Blood Urea Nitrogen 15 mg/dL (7-17); Calcium 9.1 mg/dL (8.4-10.2); Carbon Dioxide 21 mmol/L (22-30); Chloride 100 mmol/L (98-107); Glucose 141 mg/dL (74-99); Non-African American GFR(CKD) >90 (>60 ml/min/1.73 sqM); Sodium 133 mmol/L (137-145); Total Bilirubin 0.6 mg/dL (0.2-1.3); Total Protein 6.8 g/dL (6.3-8.2)
[2024-11-16 07:05] LABS: Influenza A Not Detected (Not Detectd); Influenza B Not Detected (Not Detectd); RSV Not Detected (Not Detectd)
[2024-11-16] MEDS ORDERED: PNEUMONIA PROTOCOL UTILIZED 1 EACH MISC PO PRN (07:25)
[2024-11-16 07:26] LABS: INR 0.9 (<1.2); Partial Thromboplastin Time 25.5 sec (22.0-30.0); Prothrombin Time 10.5 sec (10.0-12.5)
[2024-11-16] MEDS ORDERED: HYDROmorphone 2 MG TAB PO PRN (07:27)
[2024-11-16] MEDS: DICYCLOMINE 20 MG TAB PO SCH (08:53)
[2024-11-16] MEDS ORDERED: FLUoxetine HCL 20 MG CAP PO SCH (09:00)
[2024-11-16] MEDS ORDERED: LEVOFLOXACIN 750 MG TAB PO SCH (09:00)
[2024-11-16] MEDS: APIXABAN 5 MG TAB PO SCH (10:12)
[2024-11-16] MEDS: HYDROmorphone 2 MG TAB PO PRN (10:12)
[2024-11-16] MEDS: AZITHROMYCIN 500 MG in SODIUM CHLORIDE 0.9% 250 ML IVPB SCH (10:15)
[2024-11-16] MEDS: ONDANSETRON ODT 8 MG TAB.RAPDIS PO PRN (10:30)
[2024-11-16 10:37] LABS: Appearance,Urine Clear (Clear); Bilirubin,Urine Negative (Negative); Blood,Urine Negative (Negative); Color,Urine Light Yellow; Glucose,Urine (UA) Negative (Negative); Ketones,Urine Negative (Negative); Leukocyte Esterase,Urine Negative (Negative); Nitrite,Urine Negative (Negative); PH, Urine 6.5 (5.0-8.0); Protein,Urine Negative (Negative); Specific Gravity,Urine 1.016 (1.001-1.035); Urobilinogen,Urine <2.0 mg/dL (<2.0)
[2024-11-16] MEDS ORDERED: LORazepam 1 MG TAB PO PRN (12:56)
[2024-11-16] MEDS ORDERED: HYDROMORPHONE HCL 8 MG PO SCH (13:00)
[2024-11-16] MEDS ORDERED: VANCOMYCIN IV PER PHARMACY 1 EACH MISC MISCELLANE PRN (13:11)
--- NOTE | 2024-11-16 13:22 | P.HPIM ---
History of Present Illness H&P Date: 11/16/24 44 year old F with PMH of breast CA with metastatic disease to the liver and bone, DVT presents to the ED for wet cough, fever as high as 102.5F, pressure like chest pain and shortness of breath since Friday. She was instructed to take Levaquin by her Oncologist at [facility] but symptoms persisted which prompted her to come to the ED. In the ED she underwent extensive evaluation. Tmax 100.3F, BP 106/71, HR 132, RR 18, 92% on RA. CBC, Coag panel, CMP significant for RBC 3.92, Hg 11.9, Hct 36.6, Na 133, bicarb 21, glu 141, AST 62, ALT 46, alk phos 297. COVID, RSV, Flu neg. Trop < 0.012 x 2 with EKG showing sinus tachycardia rate of 124. CXR consistent with RML infiltrates/PNA. Patient is admitted for further workup and management. General: no distress, appears at stated age Derm: warm, dry Head: atraumatic, normocephalic, symmetric Mouth: no lip lesion, mucus membranes moist Cardiovascular: S1 S2 tachy. No murmur. Lungs: Coarse BS bilaterally, no accessory muscle use Ext: no gross muscle atrophy, no edema, no contractures Neuro: No focal neurologic deficits. Psych: Alert and oriented. Based on my assessment of this patient, this patient meets a high complexity level of care. Sepsis secondary to PNA: Immunocompromised. Start Cefepime 2g IV TID, Vancomycin dosed per pharmacy and Azithromycin 500 mg IV QD. DuoNeb QID PRN SOB. Obtain Legionella Ag, Sputum and BCx. Start LR at 100 cc/hr. Telemetry monitoring. Pulmonary consulted. Chest pain likely due to above: ACS ruled out. Transaminitis: Likely due to liver mets. Monitor. Normocytic anemia: No signs of active bleeding. Monitor. Breast CA with metastatic disease to the liver and bone: Outpatient Oncology follow up. DVT: Eliquis 5 mg PO BID. CODE STATUS: FULL CODE DVT Prophylaxis: Eliquis. GI Prophylaxis: Designated medical POA if patient is not able to make medical decisions for themselves: . I have reviewed the following oracle iam consultant notes: ED note. I have reviewed the results of the following tests: As above. I have ordered the following tests: As above. I have discussed the care of this patient with the following independent historian: I have independently interpreted the following test below: CXR. I have discussed the management of this patient with the following physician: Past Medical History Past Medical History: Cancer Additional Past Medical History / Comment(s): breast cancer History of Any Multi-Drug Resistant Organisms: None Reported Past Surgical History: Breast Surgery, Section, Hysterectomy Additional Past Surgical History / Comment(s): double mastectomy Additional Past Anesthesia/Blood Transfusion Reaction / Comment(s): na Past Psychological History: ADD/ADHD, Anxiety, Depression Smoking Status: Never smoker Past Alcohol Use History: Occasional Past Drug Use History: None Reported - Past Family History Father Family Medical History: Deep Vein Thrombosis (DVT), Hyperlipidemia, Hypertension Mother Additional Family Medical History / Comment(s): osteoporosis, glaucoma Medications and Allergies Home Medications Medication Instructions Recorded Confirmed Type Apixaban [Eliquis] 5 mg PO BID 09/07/23 11/16/24 History FLUoxetine HCL [Sarafem] 60 mg PO HS 09/07/23 11/16/24 History Ondansetron Odt [Zofran ODT] 8 mg PO Q6H PRN 09/07/23 11/16/24 History Temazepam 22.5 mg PO HS 09/07/23 11/16/24 History fentaNYL 25MCG/HR PATCH [Duragesic 1 patch TRANSDERM Q72H 09/07/23 11/16/24 History 25MCG/HR] LORazepam [Ativan] 1 mg PO Q6H PRN 06/16/24 11/16/24 History Mirtazapine 30 mg PO HS 06/16/24 11/16/24 History Pegfilgrastim [Neulasta] 6 mg SQ Q21D 06/16/24 11/16/24 History HYDROmorphone HCL [Dilaudid] 8 mg PO Q4H 11/16/24 11/16/24 History Levofloxacin [Levaquin] 250 mg PO BID 11/16/24 11/16/24 History OLANZapine [ZyPREXA] 7.5 mg PO DIRECTED 11/16/24 11/16/24 History Prochlorperazine [Compazine] 10 mg PO Q6H PRN 11/16/24 11/16/24 History fentaNYL 100MCG/HR PATCH 1 patch TRANSDERM Q72H 11/16/24 11/16/24 History [Duragesic 100MCG/HR] oxyBUTYnin chloride [Ditropan] 5 mg PO BID 11/16/24 11/16/24 History Allergies Allergy/AdvReac Type Severity Reaction Status Date / Time alpelisib [From Piqray] Allergy Rash/Hives Verified 11/16/24 08:08 Iodinated Contrast Media Allergy Rash/Hives Verified 11/16/24 08:08 [Iodinated Contrast- Oral and IV Dye] Physical Exam Vitals: Vital Signs Temp Pulse Resp BP Pulse Ox 11/16/24 12:00 76 18 11/16/24 10:10 98.6 F 101 H 18 111/72 99 11/16/24 07:50 98.2 F 96 18 111/73 96 11/16/24 07:00 98.5 F 72 18 112/73 93 L 11/16/24 05:40 16 11/16/24 05:34 100.3 F H 113 H 16 141/88 95 11/16/24 05:29 100 F H 132 H 18 106/71 92 L Intake and Output 11/15/24 11/16/24 11/16/24 22:59 06:59 14:59 Other: Weight 99.79 kg Results CBC & Chem 7: 11/16/24 05:53 11/16/24 05:53 Labs: Abnormal Lab Results - Last 24 Hours (Table) 11/16/24 11/16/24 Range/Units 05:53 05:53 RBC 3.92 L (4.10-5.20) 10*6/uL Hgb 11.9 L (12.0-15.0) g/dL Hct 36.6 L (37.2-46.3) % Lymphocytes # 0.18 L (0.90-5.00) 10*3/uL Monocytes # 0.16 L (0.20-1.00) 10*3/uL Eosinophils # 0.03 L (0.04-0.35) 10*3/uL Sodium 133 L (137-145) mmol/L Carbon Dioxide 21 L (22-30) mmol/L Glucose 141 H (74-99) mg/dL AST 62 H (14-36) U/L ALT 46 H (4-34) U/L Alkaline Phosphatase 297 H (38-126) U/L
[2024-11-16] MEDS: SODIUM CHLORIDE 0.9% 1,000 ML IV SCH (14:17)
[2024-11-16] MEDS: HYDROmorphone 2 MG/ML 1 ML SYRINGE IVP PRN (15:00)
[2024-11-16] MEDS: ONDANSETRON 4 MG/2 ML VIAL IVP PRN (15:00)
[2024-11-16] MEDS: VANCOMYCIN 1,500 MG in SODIUM CHLORIDE 0.9% 500 ML 500 ML IVPB SCH (15:04)
[2024-11-16] MEDS: ACETAMINOPHEN IV (For NPO) 1,000 MG in EMPTY BAG 1 BAG IVPB STA (15:47)
[2024-11-16] MEDS ORDERED: CEFEPIME 2 GM in SODIUM CHLORIDE 0.9% 100 ML IVPB SCH (16:00)
[2024-11-16] MEDS: KETOROLAC 15 MG/ML 1 ML VIAL IVP STA (16:32)
[2024-11-16] MEDS: PROCHLORPERAZINE 10 MG TAB PO PRN (18:41)
[2024-11-16] MEDS: oxyBUTYnin chloride 5 MG TAB PO SCH (20:03)
[2024-11-16] MEDS: FLUoxetine HCL 20 MG CAP PO SCH (20:03)
[2024-11-16] MEDS: TEMAZEPAM 7.5 MG CAP PO SCH (20:03)
[2024-11-16] MEDS: polyethylene glycoL 3350 17 GM POWD.PACK PO STA (21:49)
[2024-11-16] MEDS: MIRTAZAPINE 15 MG TAB PO SCH (21:50)
[2024-11-17] MEDS: GABAPENTIN 300 MG CAP PO STA (00:41)
[2024-11-17] MEDS: ACETAMINOPHEN TAB 325 MG TAB PO PRN (01:24)
[2024-11-17] MEDS: HYDROmorphone 1 MG/ML 1 ML SYRINGE IVP PRN (03:59)
[2024-11-17 04:33] LABS: HGB 10.2 g/dL (12.0-15.0); MCH 30.3 pg (27.0-32.0); MCHC 31.9 g/dL (32.0-37.0); Mean Platelet Volume 9.4 fL (9.5-12.2); Platelet Count 136 10*3/uL (140-440); RBC 3.37 10*6/uL (4.10-5.20); RDW 14.5 % (11.5-14.5); WBC 1.66 10*3/uL (4.50-10.00)
[2024-11-17 05:03] LABS: ALT 39 U/L (4-34); AST 56 U/L (14-36); African American GFR (CKD) >90 (>60 ml/min/1.73 sqM); Albumin 3.4 g/dL (3.5-5.0); Albumin/Globulin Ratio 1.4; Alkaline Phosphatase 243 U/L (38-126); Anion Gap 8 mmol/L; Blood Urea Nitrogen 10 mg/dL (7-17); Calcium 8.2 mg/dL (8.4-10.2); Carbon Dioxide 21 mmol/L (22-30); Chloride 106 mmol/L (98-107); Globulin 2.4 g/dL; Glucose 123 mg/dL (74-99); Non-African American GFR(CKD) >90 (>60 ml/min/1.73 sqM); Potassium 3.7 mmol/L (3.5-5.1); Sodium 135 mmol/L (137-145); Total Bilirubin 0.5 mg/dL (0.2-1.3); Total Protein 5.8 g/dL (6.3-8.2)
--- NOTE | 2024-11-17 07:18 | P.CNPUL ---
History of Present Illness Consult date: 11/17/24 Requesting physician: Magda Ramos Reason for consult: pneumonia Chief complaint: Shortness of breath, cough, high fevers History of present illness: Patient is a 44-year-old female with past medical history significant for stage IV breast cancer, with metastasis to liver and bone. Currently, undergoing systemic chemotherapy and her last treatment was on of last week. Follows with an oncologist out of the [facility]. Of note, recently hospitalized May, for pneumonia. Chest CT angio done at that time showing multifocal patchy groundglass and consolidative opacities favoring multifocal pneumoni versus inflammatory process. Patient presents back to the emergency department yesterday morning with a chief complaint of 2 days of high fevers, cough, and shortness of breath. Previously, started on Levaquin on outpatient basis by her oncologist. Workup in the emergency department including a chest xray showing patchy perihilar infiltrates with somewhat of a nodular component of the right medial lung base. Most recent labs from this morning including a CBC with a WBC count 1.67, hemoglobin 10.2, platelets 136. CMP: Sodium 135, potassium 3.7, chloride 106, serum bicarb 21, BUN 10, creatinine 0.52, glucose 123. Lactic 1.3. Normal saline infusing at 75 mL/h. LFTs mildly elevated. Troponins less than 0.012 x 2. Urinalysis unremarkable for infection. Viral screen negative for influenza A/B, RSV, COVID. Patient currently being evaluated on the fifth floor. She is resting comfortably on 2 L/min nasal cannula. Does not appear in any distress. Continues to have intermittent fevers throughout the night, treated with Tylenol as needed.. She had a Tmax of 103.1 F. Denies sick contacts or recent travel. Endorses a minimally productive cough with occasional white sputum production. Denies hemoptysis. Denies nausea, vomiting, diarrhea, abdominal pain. Is covered on broad-spectrum antibiotics in the form of azithromycin, cefepime, and vancomycin. Vital signs are stable. Review of Systems Constitutional: Reports chills, Reports fatigue, Reports fever, Reports weakness, Denies poor appetite, Denies weight gain, Denies weight loss Ears, nose, mouth and throat: Denies dysphagia, Denies headache, Denies nasal congestion, Denies nasal discharge, Denies post-nasal drip, Denies sinus pain, Denies sinus pressure Cardiovascular: Reports chest pain, Denies leg edema, Denies lightheadedness, Denies orthopnea, Denies palpitations, Denies paroxysmal nocturnal dyspnea, Denies syncope Respiratory: Reports as per HPI Gastrointestinal: Reports as per HPI Genitourinary: Denies dysuria, Denies flank pain, Denies hematuria Musculoskeletal: Denies limitation of motion Integumentary: Denies rash Neurological: Denies seizures, Denies syncope Psychiatric: Denies anxiety, Denies depression Past Medical History Past Medical History: Cancer, Deep Vein Thrombosis (DVT), Pneumonia Additional Past Medical History / Comment(s): breast cancer with mets to liver and bone, right hip fx r/t bone mets History of Any Multi-Drug Resistant Organisms: None Reported Past Surgical History: Breast Surgery, Section, Tubal Ligation Additional Past Surgical History / Comment(s): double mastectomy (Can't use left side), liver resection Additional Past Anesthesia/Blood Transfusion Reaction / Comment(s): na Past Psychological History: ADD/ADHD, Anxiety, Depression Smoking Status: Never smoker Past Alcohol Use History: Occasional Past Drug Use History: None Reported - Past Family History Father Family Medical History: Deep Vein Thrombosis (DVT), Hyperlipidemia, Hypertension Mother Additional Family Medical History / Comment(s): osteoporosis, glaucoma Medications and Allergies Home Medications Medication Instructions Recorded Confirmed Type Apixaban [Eliquis] 5 mg PO BID 09/07/23 11/16/24 History FLUoxetine HCL [Sarafem] 60 mg PO HS 09/07/23 11/16/24 History Ondansetron Odt [Zofran ODT] 8 mg PO Q6H PRN 09/07/23 11/16/24 History Temazepam 22.5 mg PO HS 09/07/23 11/16/24 History fentaNYL 25MCG/HR PATCH [Duragesic 1 patch TRANSDERM Q72H 09/07/23 11/16/24 History 25MCG/HR] LORazepam [Ativan] 1 mg PO Q6H PRN 06/16/24 11/16/24 History Mirtazapine 30 mg PO HS 06/16/24 11/16/24 History Pegfilgrastim [Neulasta] 6 mg SQ Q21D 06/16/24 11/16/24 History HYDROmorphone HCL [Dilaudid] 8 mg PO Q4H 11/16/24 11/16/24 History Levofloxacin [Levaquin] 250 mg PO BID 11/16/24 11/16/24 History OLANZapine [ZyPREXA] 7.5 mg PO DIRECTED 11/16/24 11/16/24 History Prochlorperazine [Compazine] 10 mg PO Q6H PRN 11/16/24 11/16/24 History fentaNYL 100MCG/HR PATCH 1 patch TRANSDERM Q72H 11/16/24 11/16/24 History [Duragesic 100MCG/HR] oxyBUTYnin chloride [Ditropan] 5 mg PO BID 11/16/24 11/16/24 History Allergies Allergy/AdvReac Type Severity Reaction Status Date / Time alpelisib [From Piqray] Allergy Rash/Hives Verified 11/16/24 08:08 Iodinated Contrast Media Allergy Rash/Hives Verified 11/16/24 08:08 [Iodinated Contrast- Oral and IV Dye] Physical Exam Vitals: Vital Signs Temp Pulse Pulse Resp BP BP Pulse Ox 11/17/24 02:35 98.6 F 11/17/24 01:20 94 L 11/17/24 01:15 100.4 F H 98 18 108/67 89 L 11/16/24 18:42 98.8 F 91 16 114/70 92 L 11/16/24 17:31 99.5 F 93 16 100/68 96 11/16/24 16:35 101.3 F H 11/16/24 13:51 103.1 F H 112 H 18 128/94 96 11/16/24 12:00 76 18 11/16/24 10:10 98.6 F 101 H 18 111/72 99 11/16/24 07:50 98.2 F 96 18 111/73 96 11/16/24 07:00 98.5 F 72 18 112/73 93 L Intake and Output 11/16/24 11/16/24 11/17/24 14:59 22:59 06:59 Other: # Voids 2 Weight 99.79 kg GENERAL EXAM: Alert, 44-year-old well-nourished female, comfortable in no apparent distress. HEAD: Normocephalic and atraumatic EYES: Normal reaction of pupils, equal size. NOSE: Clear with pink turbinates. THROAT: No erythema or exudates. NECK: No masses, no JVD. CHEST: No chest wall deformity. Right chest Mediport, not accessed LUNGS: Equal air entry with scattered rhonchi. On 2 L/min nasal cannula. No conversational dyspnea or accessory muscle use.. CVS: S1 and S2 normal with no audible murmur, regular rhythm. No extra heart sounds ABDOMEN: No hepatosplenomegaly, active bowel sounds, no guarding or rigidity. SPINE: No scoliosis or deformity SKIN: No rashes CENTRAL NERVOUS SYSTEM: No focal deficits, tone is normal in all 4 extremities. EXTREMITIES: There is no peripheral edema, clubbing, or cyanosis. Peripheral pulses are intact. Results - Laboratory Findings CBC and BMP: 11/17/24 04:03 11/17/24 04:03 PT/INR, D-dimer PT 10.5 sec (10.0-12.5) 11/16/24 05:53 INR 0.9 (<1.2) 11/16/24 05:53 Abnormal lab findings: Abnormal Labs 11/16/24 11/16/24 11/17/24 05:53 05:53 04:03 WBC 1.66 L RBC 3.92 L 3.37 L Hgb 11.9 L 10.2 L Hct 36.6 L 32.0 L MCHC 31.9 L Plt Count 136 L MPV 9.4 L Lymphocytes # 0.18 L Monocytes # 0.16 L Eosinophils # 0.03 L Sodium 133 L Carbon Dioxide 21 L Glucose 141 H Calcium AST 62 H ALT 46 H Alkaline Phosphatase 297 H Total Protein Albumin 11/17/24 04:03 WBC RBC Hgb Hct MCHC Plt Count MPV Lymphocytes # Monocytes # Eosinophils # Sodium 135 L Carbon Dioxide 21 L Glucose 123 H Calcium 8.2 L AST 56 H ALT 39 H Alkaline Phosphatase 243 H Total Protein 5.8 L Albumin 3.4 L - Diagnostic Findings Chest x-ray: image reviewed Assessment and Plan Assessment: Right lung community-acquired pneumonia, chest x-ray showing patchy perihilar infiltrates with somewhat of a nodular component of the right medial lung base. Acute hypoxemic respiratory failure, currently on 2 L/min nasal cannula, secondary to above Stage IV breast cancer with metastasis to liver and bone, currently undergoing systemic chemotherapy, last treatment on Pancytopenia Acute febrile illness History of DVT, anticoagulated on Eliquis Plan: Continue supplemental oxygen as needed Continue empiric antibiotics, cover for opportunistic organisms Obtain sputum and blood cultures Urine Legionella antigen pending Viral 4 Plex negative for influenza A/B, RSV, COVID Repeat chest x-ray this morning As needed Tylenol for antipyretic Continue IV fluids We will continue to follow I have personally seen and examined the patient, performed the documentation and the assessment and plan as written. Number of minutes spent on the visit:20 Time with Patient: Greater than 30
--- NOTE | 2024-11-17 08:02 | XR ---
EXAMINATION TYPE: XR chest 2V DATE OF EXAM: 11/17/2024 7:38 AM COMPARISON: 11/16/2024 CLINICAL INDICATION: Female, 44 years old with history of pneumonia, TECHNIQUE: Frontal and lateral views of the chest are obtained. FINDINGS: Focal infiltrate right medial lung base may reflect pneumonia. MediPort catheter unchanged in position. The cardiac silhouette size is within normal limits. The osseous structures are intact . IMPRESSION: Focal infiltrate right medial lung base may reflect pneumonia. [facility], , 11/17/2024 7:59 AM
[2024-11-17] MEDS: AZITHROMYCIN 500 MG in SODIUM CHLORIDE 0.9% 250 ML IVPB SCH (08:17)
--- NOTE | 2024-11-17 08:57 | P.CONS ---
History of Present Illness - Reason for Consult Consult date: 11/16/24 Pneumonia Requesting physician: Lashawn Fuchs - Chief Complaint Shortness of breath and cough x few days - History of Present Illness Patient is a 44-year-old female with a past medical history significant for metastatic breast cancer on chemotherapy with the last chemo on last week, presenting to the hospital for evaluation of fever along with cough and shortness of breath with the patient was started on oral Levaquin by her oncologist however the patient did have worsening of her symptoms including fever with chills she also have a cough moderate in intensity and is bringing up some sputum no hemoptysis denies any pleuritic chest pain nausea but no vomiting no abdominal pain or diarrhea on presentation to the hospital patient did have a fever of 100.3 F subsequently spiked a temperature of 103.1 F patient was tachycardic not hypotensive mildly hypoxic currently on a 2 L nasal cannula oxygen she did have a white count of 5.44 creatinine 0.65 liver enzymes are elevated urine is negative influenza RSV COVID testing was negative patient did have a chest x-ray patchy perihilar infiltrate with somewhat nodular component right medial lung base concerning for pneumonia patient has been started on cefepime and vancomycin infectious disease was consulted for further management of antibiotic therapy Review of Systems Positive point and negatives has been mentioned in the HPI, complete review of systems was performed and all other systems are negative Past Medical History Past Medical History: Cancer Additional Past Medical History / Comment(s): breast cancer History of Any Multi-Drug Resistant Organisms: None Reported Past Surgical History: Breast Surgery, Section, Hysterectomy Additional Past Surgical History / Comment(s): double mastectomy Additional Past Anesthesia/Blood Transfusion Reaction / Comm: na Past Psychological History: ADD/ADHD, Anxiety, Depression Smoking Status: Never smoker Past Alcohol Use History: Occasional Past Drug Use History: None Reported - Past Family History Father Family Medical History: Deep Vein Thrombosis (DVT), Hyperlipidemia, Hypertension Mother Additional Family Medical History / Comment(s): osteoporosis, glaucoma Medications and Allergies Home Medications Medication Instructions Recorded Confirmed Type Apixaban [Eliquis] 5 mg PO BID 09/07/23 11/16/24 History FLUoxetine HCL [Sarafem] 60 mg PO HS 09/07/23 11/16/24 History Ondansetron Odt [Zofran ODT] 8 mg PO Q6H PRN 09/07/23 11/16/24 History Temazepam 22.5 mg PO HS 09/07/23 11/16/24 History fentaNYL 25MCG/HR PATCH [Duragesic 1 patch TRANSDERM Q72H 09/07/23 11/16/24 History 25MCG/HR] LORazepam [Ativan] 1 mg PO Q6H PRN 06/16/24 11/16/24 History Mirtazapine 30 mg PO HS 06/16/24 11/16/24 History Pegfilgrastim [Neulasta] 6 mg SQ Q21D 06/16/24 11/16/24 History HYDROmorphone HCL [Dilaudid] 8 mg PO Q4H 11/16/24 11/16/24 History Levofloxacin [Levaquin] 250 mg PO BID 11/16/24 11/16/24 History OLANZapine [ZyPREXA] 7.5 mg PO DIRECTED 11/16/24 11/16/24 History Prochlorperazine [Compazine] 10 mg PO Q6H PRN 11/16/24 11/16/24 History fentaNYL 100MCG/HR PATCH 1 patch TRANSDERM Q72H 11/16/24 11/16/24 History [Duragesic 100MCG/HR] oxyBUTYnin chloride [Ditropan] 5 mg PO BID 11/16/24 11/16/24 History Allergies Allergy/AdvReac Type Severity Reaction Status Date / Time alpelisib [From Piqray] Allergy Rash/Hives Verified 11/16/24 08:08 Iodinated Contrast Media Allergy Rash/Hives Verified 11/16/24 08:08 [Iodinated Contrast- Oral and IV Dye] Physical Exam Vitals: Vital Signs Temp Pulse Resp BP Pulse Ox 11/16/24 13:51 103.1 F H 112 H 18 128/94 96 11/16/24 12:00 76 18 11/16/24 10:10 98.6 F 101 H 18 111/72 99 11/16/24 07:50 98.2 F 96 18 111/73 96 11/16/24 07:00 98.5 F 72 18 112/73 93 L 11/16/24 05:40 16 11/16/24 05:34 100.3 F H 113 H 16 141/88 95 11/16/24 05:29 100 F H 132 H 18 106/71 92 L Intake and Output 11/15/24 11/16/24 11/16/24 22:59 06:59 14:59 Other: Weight 99.79 kg GENERAL DESCRIPTION: Middle-age female lying in bed, no distress. No tachypnea or accessory muscle of respiration use. HEENT: Shows Pallor , no scleral icterus. Oral mucous membrane is dry. NECK: Trachea central, no thyromegaly. LUNGS: Unlabored breathing. Coarse breath sounds bilaterally HEART: S1, S2, regular rate and rhythm. ABDOMEN: Soft, no tenderness , EXTREMITIES: No edema of feet. SKIN: No rash, no masses palpable. NEUROLOGICAL: The patient is awake, alert, oriented x3, mood and affect normal. Results CBC & Chem 7: 11/17/24 04:03 11/17/24 04:03 Labs: Abnormal Lab Results - Last 24 Hours (Table) 11/16/24 11/16/24 Range/Units 05:53 05:53 RBC 3.92 L (4.10-5.20) 10*6/uL Hgb 11.9 L (12.0-15.0) g/dL Hct 36.6 L (37.2-46.3) % Lymphocytes # 0.18 L (0.90-5.00) 10*3/uL Monocytes # 0.16 L (0.20-1.00) 10*3/uL Eosinophils # 0.03 L (0.04-0.35) 10*3/uL Sodium 133 L (137-145) mmol/L Carbon Dioxide 21 L (22-30) mmol/L Glucose 141 H (74-99) mg/dL AST 62 H (14-36) U/L ALT 46 H (4-34) U/L Alkaline Phosphatase 297 H (38-126) U/L Assessment and Plan (1) Failure of outpatient treatment Current Visit: Yes Status: Acute Code(s): Z78.9 - OTHER SPECIFIED HEALTH STATUS SNOMED Code(s): 050077895 (2) Pneumonia Current Visit: No Status: Acute Priority: High Code(s): J18.9 - PNEUMONIA, UNSPECIFIED ORGANISM SNOMED Code(s): 745936144 (3) Sepsis Current Visit: No Status: Acute Code(s): A41.9 - SEPSIS, UNSPECIFIED ORGANISM SNOMED Code(s): 70908025 Plan: 1patient presented to hospital with sepsis in this patient who did have fever tachycardia meeting criteria for SIRS/sepsis source is pneumonia failing outpatient oral Levaquin therapy in this patient with a history of metastatic breast cancer on chemotherapy being immunocompromise will need to cover for resistant gram-positive and gram-negative pathogen 2will try to pending sputum for Gram stain and culture 3will treat with the vancomycin pharmacy to dose and cefepime while waiting for the culture to finalize We will follow on clinical condition and cultures to further adjust medication if needed Thank you for this consultation we will follow the patient along with you Dictation was produced using [employer] dictation software. please excuse any grammatical, word or spelling errors. Time with Patient: Greater than 30
[2024-11-17] MEDS ORDERED: OLANZapine 7.5 MG TAB PO SCH (09:00)
--- NOTE | 2024-11-17 11:30 | P.PN ---
Subjective Progress Note Date: 11/17/24 44 year old F with PMH of breast CA with metastatic disease to the liver and bone, DVT presents to the ED for wet cough, fever as high as 102.5F, pressure like chest pain and shortness of breath since Friday. She was instructed to take Levaquin by her Oncologist at [facility] but symptoms persisted which prompted her to come to the ED. In the ED she underwent extensive evaluation. Tmax 100.3F, BP 106/71, HR 132, RR 18, 92% on RA. CBC, Coag panel, CMP significant for RBC 3.92, Hg 11.9, Hct 36.6, Na 133, bicarb 21, glu 141, AST 62, ALT 46, alk phos 297. COVID, RSV, Flu neg. Trop < 0.012 x 2 with EKG showing sinus tachycardia rate of 124. CXR consistent with RML infiltrates/PNA. Patient is admitted for further workup and management. Started on Vancomycin, Azithromycin and Cefepime. ID and Pulmonary consulted. 11/17 Patient was seen and examined. Feeling fatigued. Continued cough and SOB. Tmax 103.1F over the past 24H. Antibiotics include Vancomycin dosed per pharmacy (D2), Cefepime 2g IV TID (D2) and Azithromycin (D2). CBC and CMP significant for WBC 1.66, RBC 3.37, Hg 10.2, Hct 32, Plt 136, Na 135, bicarb 21, glu 123, Ca 8.2, AST 56, ALT 39, alk phos 243, alb 3.4. CXR re-demonstrates RML PNA. Legionella Ag neg. General: no distress, appears at stated age Derm: warm, dry Head: atraumatic, normocephalic, symmetric Mouth: no lip lesion, mucus membranes moist Cardiovascular: S1 S2 tachy. No murmur. Lungs: Coarse BS bilaterally, no accessory muscle use Ext: no gross muscle atrophy, no edema, no contractures Neuro: No focal neurologic deficits. Psych: Alert and oriented. Based on my assessment of this patient, this patient meets a high complexity level of care. Sepsis secondary to PNA: Immunocompromised. Continue Cefepime 2g IV TID, Vancomycin dosed per pharmacy and Azithromycin 500 mg IV QD. Monitor renal function and Vanc tough daily. DuoNeb QID PRN SOB. Legionella Ag neg. Follow Sputum and BCx. Continue LR at 100 cc/hr. Telemetry monitoring. Pulmonary and ID on board. Pancytopenia: In the setting of metastatic malignancy to the bone. Consult Oncology. May benefit from Neulasta (last dose 2 weeks ago). Chest pain likely due to above: ACS ruled out. Transaminitis: Likely due to liver mets. Monitor. Breast CA with metastatic disease to the liver and bone: Consult Oncology. DVT: Eliquis 5 mg PO BID. CODE STATUS: FULL CODE DVT Prophylaxis: Eliquis. GI Prophylaxis: Designated medical POA if patient is not able to make medical decisions for themselves: . I have reviewed the following nutrition consultant notes: ID, Pulm note. I have reviewed the results of the following tests: CBC, CMP, Legionella Ag. I have ordered the following tests: CBC, BMP, Vanc trough. I have discussed the care of this patient with the following independent historian: I have independently interpreted the following test below: CXR. I have discussed the management of this patient with the following physician: Objective - Vital Signs Vital signs: Vital Signs Temp 98 F 11/17/24 06:58 Pulse 80 11/17/24 06:58 Resp 18 11/17/24 06:58 BP 97/60 11/17/24 06:58 Pulse Ox 96 11/17/24 06:58 FiO2 Intake & Output 11/16/24 11/17/24 11/17/24 18:59 06:59 18:59 Weight 99.79 kg Other: # Voids 2 - Labs CBC & Chem 7: 11/17/24 04:03 11/17/24 04:03 Labs: Abnormal Lab Results - Last 24 Hours (Table) 11/17/24 11/17/24 Range/Units 04:03 04:03 WBC 1.66 L (4.50-10.00) 10*3/uL RBC 3.37 L (4.10-5.20) 10*6/uL Hgb 10.2 L (12.0-15.0) g/dL Hct 32.0 L (37.2-46.3) % MCHC 31.9 L (32.0-37.0) g/dL Plt Count 136 L (140-440) 10*3/uL MPV 9.4 L (9.5-12.2) fL Sodium 135 L (137-145) mmol/L Carbon Dioxide 21 L (22-30) mmol/L Glucose 123 H (74-99) mg/dL Calcium 8.2 L (8.4-10.2) mg/dL AST 56 H (14-36) U/L ALT 39 H (4-34) U/L Alkaline Phosphatase 243 H (38-126) U/L Total Protein 5.8 L (6.3-8.2) g/dL Albumin 3.4 L (3.5-5.0) g/dL
[2024-11-17] MEDS: VANCOMYCIN TROUGH DUE 1 EACH MISC MISCELLANE ONE (13:12)
[2024-11-17 13:20] LABS: African American GFR (CKD) >90 (>60 ml/min/1.73 sqM); Non-African American GFR(CKD) >90 (>60 ml/min/1.73 sqM)
[2024-11-17] MEDS ORDERED: bisacodyL 5 MG TABLET.DR PO PRN (17:34)
[2024-11-17] MEDS: IBUPROFEN 200 MG TAB PO STA (18:55)
--- NOTE | 2024-11-17 20:52 | CDI ---
Date: 11/17/2024 From: Lynn [email or web address] Email: [email or web address] Admit Date: 11/16/2024 07:25:00 AM Patient Name: Nesha Maurer Visit Number: [id number] Discharge Date: N/A ATTENTION: The Clinical Documentation Specialists (CDI) and [facility] Coding Staff appreciate your assistance in clarifying documentation. Please respond to the clarification below the line at the bottom and electronically sign. The CDI & [facility] Coding staff will review the response and follow-up if needed. Please note: Queries are made part of the Legal Health Record. If you have any questions, please contact the author of this message via ITS. Dr. Lashawn Fuchs, Pancytopenia in the setting of metastatic malignancy to the bone is documented in your Progress Note on 11/17/2024. Further specification regarding the etiology of pancytopenia is requested. History/Risk factors: 44-year-old female [facility] due to reported fever, cough, and dyspnea. PMH: Breast cancer with metastasis to the liver and bones (last chemotherapy session was last ) Clinical indicators: Lab Results: 11/17/2024 WBC 1.66 Hemoglobin 10.2 Platelet Count 136 Treatment: Oncology Consultation (Pending) Pertinent Labs Monitored with Trend (Complete Blood Count) Home Medication to be Continued: Neulasta 6mg Subcutaneous Injection Every 21 Days (Next Dose Due 11/19/2024) Please clarify the etiology of pancytopenia, if known: [ x ] Pancytopenia due to chemotherapy and underlying malignancy [ ] Pancytopenia due to other, please specify [ ] Other condition, please specify ____ [ ] Unable to determine MTDD
[2024-11-17] MEDS: guaiFENesin 600 MG TABLET.ER PO SCH (21:22)
[2024-11-17] MEDS: polyethylene glycoL 3350 17 GM POWD.PACK PO PRN (21:45)
[2024-11-18 06:30] LABS: HCT 32.9 % (37.2-46.3); HGB 10.3 g/dL (12.0-15.0); MCH 29.9 pg (27.0-32.0); MCHC 31.3 g/dL (32.0-37.0); MCV 95.6 fL (80.0-97.0); Mean Platelet Volume 9.2 fL (9.5-12.2); Platelet Count 153 10*3/uL (140-440); RBC 3.44 10*6/uL (4.10-5.20); RDW 14.4 % (11.5-14.5)
[2024-11-18 06:39] LABS: WBC 1.37 10*3/uL (4.50-10.00)
[2024-11-18 07:55] LABS: African American GFR (CKD) >90 (>60 ml/min/1.73 sqM); Anion Gap 7 mmol/L; Blood Urea Nitrogen 8 mg/dL (7-17); Calcium 8.1 mg/dL (8.4-10.2); Carbon Dioxide 22 mmol/L (22-30); Chloride 110 mmol/L (98-107); Glucose 107 mg/dL (74-99); Non-African American GFR(CKD) >90 (>60 ml/min/1.73 sqM); Potassium 3.9 mmol/L (3.5-5.1); Sodium 139 mmol/L (137-145)
[2024-11-18] MEDS: IPRATROPIUM-ALBUTEROL 3 ML NEB INHALATION PRN (09:54)
--- NOTE | 2024-11-18 11:34 | P.PN ---
Subjective Progress Note Date: 11/18/24 44 year old F with PMH of breast CA with metastatic disease to the liver and bone, DVT presents to the ED for wet cough, fever as high as 102.5F, pressure like chest pain and shortness of breath since Friday. She was instructed to take Levaquin by her Oncologist at [facility] but symptoms persisted which prompted her to come to the ED. In the ED she underwent extensive evaluation. Tmax 100.3F, BP 106/71, HR 132, RR 18, 92% on RA. CBC, Coag panel, CMP significant for RBC 3.92, Hg 11.9, Hct 36.6, Na 133, bicarb 21, glu 141, AST 62, ALT 46, alk phos 297. COVID, RSV, Flu neg. Trop < 0.012 x 2 with EKG showing sinus tachycardia rate of 124. CXR consistent with RML infiltrates/PNA. Patient is admitted for further workup and management. Started on Vancomycin, Azithromycin and Cefepime. ID and Pulmonary consulted. 11/17 Patient was seen and examined. Feeling fatigued. Continued cough and SOB. Tmax 103.1F over the past 24H. Antibiotics include Vancomycin dosed per pharmacy (D2), Cefepime 2g IV TID (D2) and Azithromycin (D2). CBC and CMP significant for WBC 1.66, RBC 3.37, Hg 10.2, Hct 32, Plt 136, Na 135, bicarb 21, glu 123, Ca 8.2, AST 56, ALT 39, alk phos 243, alb 3.4. CXR re-demonstrates RML PNA. Legionella Ag neg. 11/18 Patient was seen and examined. Breathing slightly better. Continued cough and SOB. Afebrile over the past 24H. Antibiotics include Vancomycin dosed per pharmacy (D3), Cefepime 2g IV TID (D3) and Azithromycin (D3). CBC and CMP significant for WBC 1.37, RBC 3.44, Hg 10.3, Hct 32.9, Cl 110, Cr 0.42, glu 107, Ca 8.1. BCx neg so far. Sputum Cx growing mod PMN and few gram + cocci. General: no distress, appears at stated age Derm: warm, dry Head: atraumatic, normocephalic, symmetric Mouth: no lip lesion, mucus membranes moist Cardiovascular: S1 S2 tachy. No murmur. Lungs: Coarse BS bilaterally, no accessory muscle use Ext: no gross muscle atrophy, no edema, no contractures Neuro: No focal neurologic deficits. Psych: Alert and oriented. Based on my assessment of this patient, this patient meets a high complexity level of care. Sepsis secondary to PNA: Immunocompromised. Continue Cefepime 2g IV TID, Vancomycin dosed per pharmacy and Azithromycin 500 mg IV QD. Monitor renal function and Vanc tough daily. DuoNeb QID PRN SOB. Legionella Ag neg. Follow Sputum and BCx. Continue LR at 100 cc/hr. Telemetry monitoring. Pulmonary and ID on board. Pancytopenia: In the setting of metastatic malignancy to the bone. Consult Oncology. May benefit from Neulasta (last dose 2 weeks ago). Chest pain likely due to above: ACS ruled out. Transaminitis: Likely due to liver mets. Monitor. Breast CA with metastatic disease to the liver and bone: Consult Oncology. DVT: Eliquis 5 mg PO BID. CODE STATUS: FULL CODE DVT Prophylaxis: Eliquis. GI Prophylaxis: Designated medical POA if patient is not able to make medical decisions for themselves: . I have reviewed the following budget consultant notes: I have reviewed the results of the following tests: CBC, BMP, BCx, Sputum Cx. I have ordered the following tests: CBC, BMP, Vanc trough, CXR in the AM. I have discussed the care of this patient with the following independent historian: SHANTAL. I have independently interpreted the following test below: I have discussed the management of this patient with the following physician: Objective - Vital Signs Vital signs: Vital Signs Temp 98.3 F 11/18/24 08:00 Pulse 98 11/18/24 10:06 Resp 15 11/18/24 08:34 BP 115/75 11/18/24 08:00 Pulse Ox 96 11/18/24 10:03 FiO2 Intake & Output 11/17/24 11/18/24 11/18/24 18:59 06:59 18:59 Other: Voiding Method Toilet # Voids 2 3 1 # Bowel Movements 0 0 # Emeses 0 - Labs CBC & Chem 7: 11/18/24 06:16 11/18/24 06:16 Labs: Abnormal Lab Results - Last 24 Hours (Table) 11/17/24 11/18/24 11/18/24 Range/Units 12:55 06:16 06:16 WBC 1.37 L* (4.50-10.00) 10*3/uL RBC 3.44 L (4.10-5.20) 10*6/uL Hgb 10.3 L (12.0-15.0) g/dL Hct 32.9 L (37.2-46.3) % MCHC 31.3 L (32.0-37.0) g/dL MPV 9.2 L (9.5-12.2) fL Chloride 110 H (98-107) mmol/L Creatinine 0.43 L 0.42 L (0.52-1.04) mg/dL Glucose 107 H (74-99) mg/dL Calcium 8.1 L (8.4-10.2) mg/dL Microbiology - Last 24 Hours (Table) 11/17/24 06:57 Gram Stain - Preliminary Sputum 11/16/24 06:08 Blood Culture - Preliminary Blood 11/16/24 05:53 Blood Culture - Preliminary Blood
--- NOTE | 2024-11-18 12:08 | P.PN ---
Subjective Progress Note Date: 11/18/24 Patient is a 44-year-old female with past medical history significant for stage IV breast cancer, with metastasis to liver and bone. Currently, undergoing systemic chemotherapy and her last treatment was on of last week. [facility]. Of note, recently hospitalized May, for pneumonia. Chest CT angio done at that time showing multifocal patchy groundglass and consolidative opacities favoring multifocal pneumoni versus inflammatory process. Patient presents back to the emergency department yesterday morning with a chief complaint of 2 days of high fevers, cough, and shortness of breath. Previously, started on Levaquin on outpatient basis by her oncologist. Workup in the emergency department including a chest xray showing patchy perihilar infiltrates with somewhat of a nodular component of the right medial lung base. Most recent labs from this morning including a CBC with a WBC count 1.67, hemoglobin 10.2, platelets 136. CMP: Sodium 135, potassium 3.7, chloride 106, serum bicarb 21, BUN 10, creatinine 0.52, glucose 123. Lactic 1.3. Normal saline infusing at 75 mL/h. LFTs mildly elevated. Troponins less than 0.012 x 2. Urinalysis unremarkable for infection. Viral screen negative for influenza A/B, RSV, COVID. Patient currently being evaluated on the fifth floor. She is resting comfortably on 2 L/min nasal cannula. Does not appear in any distress. Continues to have intermittent fevers throughout the night, treated with Tylenol as needed.. She had a Tmax of 103.1 F. Denies sick contacts or recent travel. Endorses a minimally productive cough with occasional white sputum production. Denies hemoptysis. Denies nausea, vomiting, diarrhea, abdominal pain. Is covered on broad-spectrum antibiotics in the form of azithromycin, cefepime, and vancomycin. Vital signs are stable. The patient is seen today November 18, 2024 in follow-up on the regular medical floor. She is currently sitting up in bed. Awake and alert in no acute distress. Feeling a bit better today compared to yesterday. Still with a loose nonproductive cough. Maintaining good O2 saturations in the 90s on room air. White count 1.37. Hemoglobin 10.3. Platelets 153. Sodium 139. Potassium 3.9. Bicarb 22. BUN 8. Creatinine 0.42. Glucose 107. She remains on cefepime and vancomycin. Continued on bronchodilators as needed. Mucinex. Anticoagulated with Eliquis. Fentanyl patch for pain control. Continued on Zarxio. Objective - Vital Signs Vital signs: Vital Signs Temp 98.3 F 11/18/24 08:00 Pulse 98 11/18/24 10:06 Resp 15 11/18/24 08:34 BP 115/75 11/18/24 08:00 Pulse Ox 96 11/18/24 10:03 FiO2 Intake & Output 11/17/24 11/18/24 11/18/24 18:59 06:59 18:59 Other: Voiding Method Toilet # Voids 2 3 1 # Bowel Movements 0 0 # Emeses 0 - Exam GENERAL EXAM: Alert, pleasant 44-year-old female, on room air oxygen, comfortable in no apparent distress. HEAD: Normocephalic. EYES: Normal reaction of pupils, equal size. NOSE: Clear with pink turbinates. THROAT: No erythema or exudates. NECK: No masses, no JVD. CHEST: No chest wall deformity. LUNGS: Equal air entry with bilateral scattered rhonchi. CVS: S1 and S2 normal with no audible murmur, regular rhythm. ABDOMEN: No hepatosplenomegaly, normal bowel sounds, no guarding or rigidity. SPINE: No scoliosis or deformity SKIN: No rashes CENTRAL NERVOUS SYSTEM: No focal deficits, tone is normal in all 4 extremities. EXTREMITIES: There is no peripheral edema. No clubbing, no cyanosis. Periph eral pulses are intact. - Labs CBC & Chem 7: 11/18/24 06:16 11/18/24 06:16 Labs: Abnormal Lab Results - Last 24 Hours (Table) 11/17/24 11/18/24 11/18/24 Range/Units 12:55 06:16 06:16 WBC 1.37 L* (4.50-10.00) 10*3/uL RBC 3.44 L (4.10-5.20) 10*6/uL Hgb 10.3 L (12.0-15.0) g/dL Hct 32.9 L (37.2-46.3) % MCHC 31.3 L (32.0-37.0) g/dL MPV 9.2 L (9.5-12.2) fL Chloride 110 H (98-107) mmol/L Creatinine 0.43 L 0.42 L (0.52-1.04) mg/dL Glucose 107 H (74-99) mg/dL Calcium 8.1 L (8.4-10.2) mg/dL Microbiology - Last 24 Hours (Table) 11/17/24 06:57 Gram Stain - Preliminary Sputum 11/16/24 06:08 Blood Culture - Preliminary Blood 11/16/24 05:53 Blood Culture - Preliminary Blood Assessment and Plan Assessment: Right lung community-acquired pneumonia, chest x-ray showing patchy perihilar infiltrates with somewhat of a nodular component of the right medial lung base. Acute hypoxemic respiratory failure, secondary to above, recovered and currently on room air oxygen Stage IV breast cancer with metastasis to liver and bone, currently undergoing systemic chemotherapy, last treatment on Pancytopenia Acute febrile illness History of DVT, anticoagulated on Eliquis Plan: The patient was seen and evaluated Labs and medications reviewed Remains on cefepime and vancomycin Blood and sputum cultures pending Continued on Zarxio Anticoagulated with Eliquis Continue adequate pain control Will continue to follow I have personally seen and examined the patient, performed the documentation and the assessment and plan as written. Number of minutes spent on the visit: 10 Dictation was produced using [employer] dictation software. Please excuse any grammatical, word or spelling errors.
--- NOTE | 2024-11-18 13:39 | P.PN ---
Subjective Progress Note Date: 11/17/24 Principal diagnosis: Reason for follow-up is pneumonia Patient is a 44-year-old female with a past medical history significant for metastatic breast cancer on chemotherapy with the last chemo on a week before presentation to the hospital presenting with increasing shortness of breath and cough failing outpatient oral Levaquin therapy being admitted to hospital with pneumonia. On today's evaluation that is 11/17/2024,the patient did have improvement in her fever pattern with the last temperature of 100.4 F at 1 AM, the patient is afebrile since then, patient is on 2 L nasal cannula supplemental oxygen and denies any shortness of breath no chest pain or any worsening cough.Patient denies having any nausea or vomiting, no abdominal pain and no diarrhea mother complaining of constipation. Patient white count is 1.66 creatinine 0.52 urine for Legionella antigen negative blood and sputum cultures pending Objective - Vital Signs Vital signs: Vital Signs Temp 97.9 F 11/17/24 12:00 Pulse 95 11/17/24 12:00 Resp 18 11/17/24 12:00 BP 114/70 11/17/24 12:00 Pulse Ox 98 11/17/24 12:00 FiO2 Intake & Output 11/16/24 11/17/24 11/17/24 18:59 06:59 18:59 Weight 99.79 kg Other: # Voids 2 2 - Exam GENERAL DESCRIPTION: Middle-age female lying in bed in no distress RESPIRATORY SYSTEM: Unlabored breathing , decreased breath sounds at bases HEART: S1 S2 regular rate and rhythm , ABDOMEN: Soft , no tenderness EXTREMITIES: No edema feet - Labs CBC & Chem 7: 11/18/24 06:16 11/18/24 06:16 Labs: Abnormal Lab Results - Last 24 Hours (Table) 11/17/24 11/17/24 11/17/24 Range/Units 04:03 04:03 12:55 WBC 1.66 L (4.50-10.00) 10*3/uL RBC 3.37 L (4.10-5.20) 10*6/uL Hgb 10.2 L (12.0-15.0) g/dL Hct 32.0 L (37.2-46.3) % MCHC 31.9 L (32.0-37.0) g/dL Plt Count 136 L (140-440) 10*3/uL MPV 9.4 L (9.5-12.2) fL Sodium 135 L (137-145) mmol/L Carbon Dioxide 21 L (22-30) mmol/L Creatinine 0.43 L (0.52-1.04) mg/dL Glucose 123 H (74-99) mg/dL Calcium 8.2 L (8.4-10.2) mg/dL AST 56 H (14-36) U/L ALT 39 H (4-34) U/L Alkaline Phosphatase 243 H (38-126) U/L Total Protein 5.8 L (6.3-8.2) g/dL Albumin 3.4 L (3.5-5.0) g/dL Microbiology - Last 24 Hours (Table) 11/17/24 06:57 Gram Stain - Preliminary Sputum 11/16/24 06:08 Blood Culture - Preliminary Blood 11/16/24 05:53 Blood Culture - Preliminary Blood Assessment and Plan (1) Failure of outpatient treatment Current Visit: Yes Status: Acute Code(s): Z78.9 - OTHER SPECIFIED HEALTH STATUS SNOMED Code(s): 288799525 (2) Pneumonia Current Visit: No Status: Acute Priority: High Code(s): J18.9 - PNEUMONIA, UNSPECIFIED ORGANISM SNOMED Code(s): 999134645 (3) Sepsis Current Visit: No Status: Acute Code(s): A41.9 - SEPSIS, UNSPECIFIED ORGANISM SNOMED Code(s): 71976941 Plan: 1patient presented to hospital with sepsis in this patient who did have fever tachycardia meeting criteria for SIRS/sepsis source is pneumonia failing outpatient oral Levaquin therapy in this patient with a history of metastatic breast cancer on chemotherapy/immunocompromise, will need to cover for resistant gram-positive and gram-negative pathogen 2blood and sputum cultures obtained, urine for Legionella antigen negative 3patient will be treated with the vancomycin pharmacy to dose and cefepime and discontinue Zithromax Dictation was produced using [employer] dictation software. please excuse any gramma tical, word or spelling errors. Time with Patient: Less than 30
--- NOTE | 2024-11-18 13:40 | P.PN ---
Subjective Progress Note Date: 11/18/24 Principal diagnosis: Reason for follow-up is pneumonia Patient is a 44-year-old female with a past medical history significant for metastatic breast cancer on chemotherapy with the last chemo on a week before presentation to the hospital presenting with increasing shortness of breath and cough failing outpatient oral Levaquin therapy being admitted to hospital with pneumonia. On today's evaluation that is 11/18/2024, the patient continues to be afebrile, the patient is on 2 L nasal oxygen and breathing comfortably, the Pt denies having any chest pain or any worsening cough, the patient denies having any abdominal pain no vomiting and did have a bowel movement. The patient white count is 1.37, creatinine 0.42 cultures are currently pending Objective - Vital Signs Vital signs: Vital Signs Temp 97.4 F L 11/18/24 13:18 Pulse 77 11/18/24 13:18 Resp 17 11/18/24 13:18 BP 93/53 11/18/24 13:18 Pulse Ox 93 L 11/18/24 13:18 FiO2 Intake & Output 11/17/24 11/18/24 11/18/24 18:59 06:59 18:59 Other: Voiding Method Toilet # Voids 2 3 1 # Bowel Movements 0 0 # Emeses 0 - Exam GENERAL DESCRIPTION: Middle-age female lying in bed in no distress RESPIRATORY SYSTEM: Unlabored breathing , decreased breath sounds at bases HEART: S1 S2 regular rate and rhythm , ABDOMEN: Soft , no tenderness EXTREMITIES: No edema feet - Labs CBC & Chem 7: 11/18/24 06:16 11/18/24 06:16 Labs: Abnormal Lab Results - Last 24 Hours (Table) 11/18/24 11/18/24 Range/Units 06:16 06:16 WBC 1.37 L* (4.50-10.00) 10*3/uL RBC 3.44 L (4.10-5.20) 10*6/uL Hgb 10.3 L (12.0-15.0) g/dL Hct 32.9 L (37.2-46.3) % MCHC 31.3 L (32.0-37.0) g/dL MPV 9.2 L (9.5-12.2) fL Chloride 110 H (98-107) mmol/L Creatinine 0.42 L (0.52-1.04) mg/dL Glucose 107 H (74-99) mg/dL Calcium 8.1 L (8.4-10.2) mg/dL Microbiology - Last 24 Hours (Table) 11/16/24 06:08 Blood Culture - Preliminary Blood 11/16/24 05:53 Blood Culture - Preliminary Blood 11/17/24 06:57 Gram Stain - Preliminary Sputum Sputum Culture - Preliminary Assessment and Plan (1) Failure of outpatient treatment Current Visit: Yes Status: Acute Code(s): Z78.9 - OTHER SPECIFIED HEALTH ST ATUS SNOMED Code(s): 264012658 (2) Pneumonia Current Visit: No Status: Acute Priority: High Code(s): J18.9 - PNEUMONIA, UNSPECIFIED ORGANISM SNOMED Code(s): 633560456 (3) Sepsis Current Visit: No Status: Acute Code(s): A41.9 - SEPSIS, UNSPECIFIED ORGANISM SNOMED Code(s): 68078715 Plan: 1patient presented to hospital with sepsis in this patient who did have fever t achycardia meeting criteria for SIRS/sepsis source is pneumonia failing outpatient oral Levaquin therapy in this patient with a history of metastatic breast cancer on chemotherapy/immunocompromise, will need to cover for resistant gram-positive and gram-negative pathogen 2blood and sputum cultures obtained, urine for Legionella antigen negative 3patient did have resolution of her fever cultures are currently pending we will treat with vancomycin pharmacy to dose and cefepime while waiting for the culture to finalize Dictation was produced using [employer] dictation software. please excuse any gr ammatical, word or spelling errors. Time with Patient: Less than 30
[2024-11-18] MEDS: IBUPROFEN 400 MG TAB PO STA (17:58)
[2024-11-18] MEDS: FILGRASTIM-SNDZ 480 MCG/0.8 ML SYRINGE SQ SCH (17:59)
--- NOTE | 2024-11-18 18:08 | P.CONS ---
History of Present Illness - Reason for Consult Consult date: 11/18/24 breast cancer, leukopenia Requesting physician: Lashawn Fuchs - Chief Complaint fever - History of Present Illness Mrs. Maurer is a 44-year-old female with metastatic triple negative breast cancer, treated at [facility] with Dr. Gould. She has been on tr eatment with monoclonal antibody Sacituzumab, receiving last dose last . G-CSF last given 3 weeks ago, was do for dose this week after her treatment. Patient states recent scans had showed progression of malignancy in bone and liver. Completed 5 fractions of RT to the liver 3 weeks ago. Plan for now is to continue Trodelvy and to transition to Enhertu. Patient reports she was noting fevers at home and her oncologist started her on Levaquin. Due to persisting fevers she was instructed to come to the hospital for further evaluation and management. Upon admission chest x-ray is concerning for pneumonia. Tmax of 103.1, fever pattern has improved. Continues on cefepime and vancomycin. Blood cultures negative thus far. Sputum culture pending. Today WBC 1.37, hemoglobin 10.3, platelets 153,000. No differential ordered. Bilirubin 0.5, with transaminitis noted. Creatinine 0.52, GFR greater than 90. At today's visit patient is reporting she is feeling improved. Denies nausea vomiting diarrhea. Review of Systems 10 point ROS is negative except as stated in the HPI Past Medical History Past Medical History: Cancer Additional Past Medical History / Comment(s): breast cancer History of Any Multi-Drug Resistant Organisms: None Reported Past Surgical History: Breast Surgery, Section, Hysterectomy Additional Past Surgical History / Comment(s): double mastectomy Additional Past Anesthesia/Blood Transfusion Reaction / Comm: na Past Psychological History: ADD/ADHD, Anxiety, Depression Smoking Status: Never smoker Past Alcohol Use History: Occasional Past Drug Use History: None Reported - Past Family History Father Family Medical History: Deep Vein Thrombosis (DVT), Hyperlipidemia, Hypertension Mother Additional Family Medical History / Comment(s): osteoporosis, glaucoma Medications and Allergies Home Medications Medication Instructions Recorded Confirmed Type Apixaban [Eliquis] 5 mg PO BID 09/07/23 11/16/24 History FLUoxetine HCL [Sarafem] 60 mg PO HS 09/07/23 11/16/24 History Ondansetron Odt [Zofran ODT] 8 mg PO Q6H PRN 09/07/23 11/16/24 History Temazepam 22.5 mg PO HS 09/07/23 11/16/24 History fentaNYL 25MCG/HR PATCH [Duragesic 1 patch TRANSDERM Q72H 09/07/23 11/16/24 History 25MCG/HR] LORazepam [Ativan] 1 mg PO Q6H PRN 06/16/24 11/16/24 History Mirtazapine 30 mg PO HS 06/16/24 11/16/24 History Pegfilgrastim [Neulasta] 6 mg SQ Q21D 06/16/24 11/16/24 History HYDROmorphone HCL [Dilaudid] 8 mg PO Q4H 11/16/24 11/16/24 History Levofloxacin [Levaquin] 250 mg PO BID 11/16/24 11/16/24 History OLANZapine [ZyPREXA] 7.5 mg PO DIRECTED 11/16/24 11/16/24 History Prochlorperazine [Compazine] 10 mg PO Q6H PRN 11/16/24 11/16/24 History fentaNYL 100MCG/HR PATCH 1 patch TRANSDERM Q72H 11/16/24 11/16/24 History [Duragesic 100MCG/HR] oxyBUTYnin chloride [Ditropan] 5 mg PO BID 11/16/24 11/16/24 History Allergies Allergy/AdvReac Type Severity Reaction Status Date / Time alpelisib [From Piqray] Allergy Rash/Hives Verified 11/16/24 08:08 Iodinated Contrast Media Allergy Rash/Hives Verified 11/16/24 08:08 [Iodinated Contrast- Oral and IV Dye] Physical Exam Vitals: Vital Signs Temp Pulse Pulse Resp BP Pulse Ox 11/18/24 10:06 98 11/18/24 10:03 96 11/18/24 10:02 95 11/18/24 08:34 98 15 11/18/24 08:00 98.3 F 74 15 115/75 98 11/18/24 01:21 98.4 F 89 16 101/71 100 11/17/24 20:00 16 11/17/24 19:38 98.3 F 91 16 104/65 100 11/17/24 12:00 97.9 F 95 18 114/70 98 Intake and Output 11/17/24 11/18/24 11/18/24 22:59 06:59 14:59 Other: Voiding Method Toilet # Voids 0 3 1 # Bowel Movements 0 0 # Emeses 0 - Constitutional General appearance: average body habitus, no acute distress - EENT Eyes: anicteric sclerae, EOMI ENT: hearing grossly normal - Respiratory breathing is even and unlabored - Cardiovascular skin warm and dry - Gastrointestinal General gastrointestinal: soft, no tenderness - Integumentary Integumentary: no cyanotic, no jaundiced - Neurologic Neurologic: CNII-XII intact - Musculoskeletal Musculoskeletal: strength equal bilaterally - Psychiatric Psychiatric: A&O x's 3 Results CBC & Chem 7: 11/18/24 06:16 11/18/24 06:16 Labs: Abnormal Lab Results - Last 24 Hours (Table) 11/17/24 11/18/24 11/18/24 Range/Units 12:55 06:16 06:16 WBC 1.37 L* (4.50-10.00) 10*3/uL RBC 3.44 L (4.10-5.20) 10*6/uL Hgb 10.3 L (12.0-15.0) g/dL Hct 32.9 L (37.2-46.3) % MCHC 31.3 L (32.0-37.0) g/dL MPV 9.2 L (9.5-12.2) fL Chloride 110 H (98-107) mmol/L Creatinine 0.43 L 0.42 L (0.52-1.04) mg/dL Glucose 107 H (74-99) mg/dL Calcium 8.1 L (8.4-10.2) mg/dL Microbiology - Last 24 Hours (Table) 11/17/24 06:57 Gram Stain - Preliminary Sputum 11/16/24 06:08 Blood Culture - Preliminary Blood 11/16/24 05:53 Blood Culture - Preliminary Blood Chest x-ray: report reviewed Assessment and Plan (1) Leukopenia due to antineoplastic chemotherapy Current Visit: Yes Status: Acute Priority: High Code(s): D70.1 - AGRANULOCYTOSIS SECONDARY TO CANCER CHEMOTHERAPY; T45.1X5A - ADVERSE EFFECT OF ANTINEOPLASTIC AND IMMUNOSUP DRUGS, INIT SNOMED Code(s): 900571323 (2) Fever Current Visit: Yes Status: Acute Priority: High Code(s): R50.9 - FEVER, UNSPECIFIED SNOMED Code(s): 285968456 (3) Pneumonia Current Visit: Yes Status: Acute Priority: High Code(s): J18.9 - PNEUMONIA, UNSPECIFIED ORGANISM SNOMED Code(s): 684240566 (4) Metastatic adenocarcinoma to breast Current Visit: Yes Status: Chronic Priority: Medium Code(s): C79.81 - SECONDARY MALIGNANT NEOPLASM OF BREAST SNOMED Code(s): 846434138673184 Plan: Fever, pneumonia: Presented with fevers, was started on Levaquin by her oncologist. -CXR concenring for pneumonia. IV abx started -BC negative thus far. Sputum culture pending -No fevers for 24 hours -ID and pulm following Chemo r/t leukopenia: -Today WBC 1.37, hemoglobin 10.3, platelets 153,000. No differential ordered -G-CSF last given 3 weeks ago, was due for dose this week after her treatment. -G-CSF started with goal of ANC > 1,000 -Continue to monitor CBC Metastatic breast cancer: -Treated at [facility] with Dr. Guold. She has been on treatment with monoclonal antibody Sacituzumab, receiving last dose last -Patient states recent scans had showed progression of malignancy in bone and li [place]. Completed 5 fractions of RT to the liver 3 weeks ago. Plan for now is to continue Trodelvy and to eventually transition to Enhertu. -Treatment on hold until her acute symptoms resolve. She will resume follow-up with her primary oncologist upon discharge for further management
[2024-11-18] MEDS: GABAPENTIN 300 MG CAP PO SCH (21:01)
[2024-11-18] MEDS: KETOROLAC 15 MG/ML 1 ML VIAL IVP STA (21:28)
[2024-11-19] MEDS: VANCOMYCIN 1,500 MG in SODIUM CHLORIDE 0.9% 500 ML 500 ML IVPB SCH (03:36)
[2024-11-19 07:04] LABS: African American GFR (CKD) >90 (>60 ml/min/1.73 sqM); Anion Gap 9 mmol/L; Blood Urea Nitrogen 7 mg/dL (7-17); Calcium 8.3 mg/dL (8.4-10.2); Carbon Dioxide 22 mmol/L (22-30); Chloride 108 mmol/L (98-107); Glucose 86 mg/dL (74-99); Non-African American GFR(CKD) >90 (>60 ml/min/1.73 sqM); Potassium 3.9 mmol/L (3.5-5.1); Sodium 139 mmol/L (137-145)
[2024-11-19 10:14] LABS: HCT 33.9 % (37.2-46.3); HGB 10.2 g/dL (12.0-15.0); MCH 29.8 pg (27.0-32.0); MCHC 30.1 g/dL (32.0-37.0); MCV 99.1 FL (80.0-97.0); Mean Platelet Volume 9.8 FL (9.5-12.2); NRBC Per 100 WBC 0 X 10*3/uL (0.00-0.01); Platelet Count 165 X 10*3/uL (140-440); RBC 3.42 X 10*6/uL (4.10-5.20); RDW 14.6 % (11.5-14.5); WBC 7.08 X 10*3/uL (4.50-10.00)
--- NOTE | 2024-11-19 10:25 | XR ---
EXAMINATION TYPE: XR chest 1V portable DATE OF EXAM: 11/19/2024 COMPARISON: 11/17/2024 CLINICAL INDICATION: Female, 44 years old with history of PNA; TECHNIQUE: Single frontal view of the chest is obtained. FINDINGS: Persistent increased density right medial lung base could reflect atelectasis or underlyin g infiltrate. Elevation right hemidiaphragm. Right-sided MediPort catheter. The cardiac silhouette si ze is within normal limits. The osseous structures are intact. IMPRESSION: Persistent increased density right medial lung base could reflect atelectasis or underly ing infiltrate. [facility], , 11/19/2024 10:22 AM
[2024-11-19 10:40] LABS: Basophils # (A) 0.08 X 10*3/uL (0.00-0.10); Basophils % (A) 1.1 %; Eosinophils # (A) 0.05 X 10*3/uL (0.04-0.35); Eosinophils % (A) 0.7 %; Lymphocytes # (A) 1.25 X 10*3/uL (0.90-5.00); Lymphocytes % (A) 17.7 %; Monocytes # (A) 0.59 X 10*3/uL (0.20-1.00); Monocytes % (A) 8.3 %; Neutrophils # (A) 5.04 X 10*3/uL (1.80-7.70); Neutrophils % (A) 71.2 %
--- NOTE | 2024-11-19 10:56 | P.PN ---
Subjective Progress Note Date: 11/19/24 Principal diagnosis: Reason for follow-up is pneumonia Patient is a 44-year-old female with a past medical history significant for metastatic breast cancer on chemotherapy with the last chemo on a week before presentation to the hospital presenting with increasing shortness of breath and cough failing outpatient oral Levaquin therapy being admitted to hospital with pneumonia. On today's evaluation that is 11/19/2024, Patient is afebrile patient is currently on room air and denies having any shortness of breath, the patient denies any chest pain and cough has decreased in intensity, the patient denies any nausea vomiting did not have any abdominal pain and no diarrhea. Patient white count 7.08, creatinine 0.39 blood cultures currently pending sputum has been negative so far Objective - Vital Signs Vital signs: Vital Signs Temp 98.0 F 11/19/24 07:43 Pulse 83 11/19/24 08:11 Resp 13 11/19/24 08:11 BP 97/59 11/19/24 07:43 Pulse Ox 97 11/19/24 07:47 FiO2 Intake & Output 11/18/24 11/19/24 11/19/24 18:59 06:59 18:59 Intake Total 1300 Balance 1300 Intake: Intake, IV Titration 1300 Amount Cefepime 2 gm In Dextrose 100 5% in Water 100 ml @ 25 mls/hr IVPB Q8H [facility] Rx#: [id number] Lactated Ringers 1,000 ml 700 @ 130 mls/hr IV .Q7H42M [facility] Rx#:[id number] Vancomycin 1,500 mg In 500 Sodium Chloride 0.9% 500 ml 500 ml @ 167 mls/hr IVPB Q8H [facility] Rx#: [id number] Other: Voiding Method Toilet Toilet Toilet # Voids 1 1 1 # Bowel Movements 0 1 - Exam GENERAL DESCRIPTION: Middle-age female lying in bed in no distress RESPIRATORY SYSTEM: Unlabored breathing , decreased breath sounds at bases HEART: S1 S2 regular rate and rhythm , ABDOMEN: Soft , no tenderness EXTREMITIES: No edema feet - Labs CBC & Chem 7: 11/19/24 06:04 11/19/24 06:04 Labs: Abnormal Lab Results - Last 24 Hours (Table) 11/19/24 11/19/24 Range/Units 06:04 06:04 RBC 3.42 L (4.10-5.20) X 10*6/uL Hgb 10.2 L (12.0-15.0) g/dL Hct 33.9 L (37.2-46.3) % MCV 99.1 H (80.0-97.0) FL MCHC 30.1 L (32.0-37.0) g/dL RDW 14.6 H (11.5-14.5) % Immature Gran # 0.07 H (0.00-0.04) X 10*3/uL Chloride 108 H (98-107) mmol/L Creatinine 0.39 L (0.52-1.04) mg/dL Calcium 8.3 L (8.4-10.2) mg/dL Microbiology - Last 24 Hours (Table) 11/17/24 14:06 Nasal Screen MRSA/MSSA - Final Nasal Swab 11/16/24 06:08 Blood Culture - Preliminary Blood 11/16/24 05:53 Blood Culture - Preliminary Blood 11/17/24 06:57 Gram Stain - Preliminary Sputum Sputum Culture - Preliminary Assessment and Plan (1) Failure of outpatient treatment Current Visit: Yes Status: Acute Code(s): Z78.9 - OTHER SPECIFIED HEALTH STATUS SNOMED Code(s): 423791639 (2) Pneumonia Current Visit: Yes Status: Acute Priority: High Code(s): J18.9 - PNEUMONIA, UNSPECIFIED ORGANISM SNOMED Code(s): 220932379 (3) Sepsis Current Visit: No Status: Acute Code(s): A41.9 - SEPSIS, UNSPECIFIED ORGANISM SNOMED Code(s): 10464607 Plan: 1patient presented to hospital with sepsis in this patient who did have fever tachycardia meeting criteria for SIRS/sepsis source is pneumonia failing outpatient oral Levaquin therapy in this patient with a history of metastatic breast cancer on chemotherapy/immunocompromise, will need to cover for resistant gram-positive and gram-negative pathogen 2blood and sputum cultures so far pending, urine for Legionella antigen negative, MRSA nasal screen is negative 3patient did have resolution of her fever and white has normalized with negative MRSA screen vancomycin will be discontinued continue cefepime and will transition to oral antibiotic on discharge Dictation was produced using [employer] dictation software. please excuse any grammatical, word or spelling errors. Time with Patient: Less than 30
[2024-11-19] MEDS: IBUPROFEN 400 MG TAB PO PRN (11:54)
--- NOTE | 2024-11-19 12:47 | P.PN ---
Subjective Progress Note Date: 11/19/24 Patient is a 44-year-old female with past medical history significant for stage IV breast cancer, with metastasis to liver and bone. Currently, undergoing systemic chemotherapy and her last treatment was on of last week. Follows with an oncologist out of the [facility]. Of note, recently hospitalized May, for pneumonia. Chest CT angio done at that time showing multifocal patchy groundglass and consolidative opacities favoring multifocal pneumoni versus inflammatory process. Patient presents back to the emergency department yesterday morning with a chief complaint of 2 days of high fevers, cough, and shortness of breath. Previously, started on Levaquin on outpatient basis by her oncologist. Workup in the emergency department including a chest xray showing patchy perihilar infiltrates with somewhat of a nodular component of the right medial lung base. Most recent labs from this morning including a CBC with a WBC count 1.67, hemoglobin 10.2, platelets 136. CMP: Sodium 135, potassium 3.7, chloride 106, serum bicarb 21, BUN 10, creatinine 0.52, glucose 123. Lactic 1.3. Normal saline infusing at 75 mL/h. LFTs mildly elevated. Troponins less than 0.012 x 2. Urinalysis unremarkable for infection. Viral screen negative for influenza A/B, RSV, COVID. Patient currently being evaluated on the fifth floor. She is resting comfortably on 2 L/min nasal cannula. Does not appear in any distress. Continues to have intermittent fevers throughout the night, treated with Tylenol as needed.. She had a Tmax of 103.1 F. Denies sick contacts or recent travel. Endorses a minimally productive cough with occasional white sputum production. Denies hemoptysis. Denies nausea, vomiting, diarrhea, abdominal pain. Is covered on broad-spectrum antibiotics in the form of azithromycin, cefepime, and vancomycin. Vital signs are stable. The patient is seen today November 18, 2024 in follow-up on the regular medical floor. She is currently sitting up in bed. Awake and alert in no acute distress. Feeling a bit better today compared to yesterday. Still with a loose nonproductive cough. Maintaining good O2 saturations in the 90s on room air. White count 1.37. Hemoglobin 10.3. Platelets 153. Sodium 139. Potassium 3.9. Bicarb 22. BUN 8. Creatinine 0.42. Glucose 107. She remains on cefepime and vancomycin. Continued on bronchodilators as needed. Mucinex. Anticoagulated with Eliquis. Fentanyl patch for pain control. Continued on Zarxio. The patient is seen today November 19, 2024 in follow-up on the regular medical floor. She is awake and alert in no acute distress. Breathing a bit better today compared to yesterday. She is maintaining good O2 saturations in the 90s on room air. She has been afebrile. Hemodynamically stable. Follow-up chest x- ray shows persistent density in the right medial lung base, atelectasis versus infiltrate. Sputum culture revealed no growth. Blood culture revealed no growth. White count 7.0. Hemoglobin 10.2. Platelets 165. Sodium 139. Potassium 3.9. Bicarb 22. BUN 7. Creatinine 0.39. Glucose 86. She remains on DuoNeb inhalations. Antibiotics in the form of cefepime and vancomycin. Lactated Ringer's at 130 mL/h. Anticoagulated with Eliquis. Objective - Vital Signs Vital signs: Vital Signs Temp 98.0 F 11/19/24 07:43 Pulse 74 11/19/24 11:39 Resp 13 11/19/24 08:11 BP 97/58 11/19/24 11:58 Pulse Ox 97 11/19/24 07:47 FiO2 Intake & Output 11/18/24 11/19/24 11/19/24 18:59 06:59 18:59 Intake Total 1300 Balance 1300 Intake: Intake, IV Titration 1300 Amount Cefepime 2 gm In Dextrose 100 5% in Water 100 ml @ 25 mls/hr IVPB Q8H [facility] Rx#: [id number] Lactated Ringers 1,000 ml 700 @ 130 mls/hr IV .Q7H42M [facility] Rx#:[id number] Vancomycin 1,500 mg In 500 Sodium Chloride 0.9% 500 ml 500 ml @ 167 mls/hr IVPB Q8H [facility] Rx#: [id number] Other: Voiding Method Toilet Toilet Toilet # Voids 1 1 1 # Bowel Movements 0 1 - Exam GENERAL EXAM: Alert, pleasant 44-year-old female, on room air oxygen, sitting up in bed, in no apparent distress. HEAD: Normocephalic. EYES: Normal reaction of pupils, equal size. NOSE: Clear with pink turbinates. THROAT: No erythema or exudates. NECK: No masses, no JVD. CHEST: No chest wall deformity. LUNGS: Equal air entry with bilateral scattered rhonchi. CVS: S1 and S2 normal with no audible murmur, regular rhythm. ABDOMEN: No hepatosplenomegaly, normal bowel sounds, no guarding or rigidity. SPINE: No scoliosis or deformity SKIN: No rashes CENTRAL NERVOUS SYSTEM: No focal deficits, tone is normal in all 4 extremities. EXTREMITIES: There is no peripheral edema. No clubbing, no cyanosis. Peripheral pulses are intact. - Labs CBC & Chem 7: 11/19/24 06:04 11/19/24 06:04 Labs: Abnormal Lab Results - Last 24 Hours (Table) 11/19/24 11/19/24 Range/Units 06:04 06:04 RBC 3.42 L (4.10-5.20) X 10*6/uL Hgb 10.2 L (12.0-15.0) g/dL Hct 33.9 L (37.2-46.3) % MCV 99.1 H (80.0-97.0) FL MCHC 30.1 L (32.0-37.0) g/dL RDW 14.6 H (11.5-14.5) % Immature Gran # 0.07 H (0.00-0.04) X 10*3/uL Chloride 108 H (98-107) mmol/L Creatinine 0.39 L (0.52-1.04) mg/dL Calcium 8.3 L (8.4-10.2) mg/dL Microbiology - Last 24 Hours (Table) 11/17/24 06:57 Gram Stain - Final Sputum Sputum Culture - Final 11/17/24 14:06 Nasal Screen MRSA/MSSA - Final Nasal Swab 11/16/24 06:08 Blood Culture - Preliminary Blood 11/16/24 05:53 Blood Culture - Preliminary Blood Assessment and Plan Assessment: Right lung community-acquired pneumonia, chest x-ray showing patchy perihilar infiltrates with somewhat of a nodular component of the right medial lung base. Acute hypoxemic respiratory failure, secondary to above, recovered and currently on room air oxygen Stage IV breast cancer with metastasis to liver and bone, currently undergoing systemic chemotherapy, last treatment on Pancytopenia Acute febrile illness History of DVT, anticoagulated on Eliquis Plan: The patient was seen and evaluated Chest x-ray, labs and medications reviewed Remains on cefepime and vancomycin Blood and sputum cultures revealed no growth Anticoagulated with Eliquis Continue adequate pain control Will continue to follow I have personally seen and examined the patient, performed the documentation and the assessment and plan as written. Number of minutes spent on the visit: 10 Dictation was produced using [employer] dictation software. Please excuse any grammatical, word or spelling errors.
--- NOTE | 2024-11-19 12:50 | P.PN ---
Subjective Progress Note Date: 11/19/24 44 year old F with PMH of breast CA with metastatic disease to the liver and bone, DVT presents to the ED for wet cough, fever as high as 102.5F, pressure like chest pain and shortness of breath since Friday. She was instructed to take Levaquin by her Oncologist at [facility] but symptoms persisted which prompted her to come to the ED. In the ED she underwent extensive evaluation. Tmax 100.3F, BP 106/71, HR 132, RR 18, 92% on RA. CBC, Coag panel, CMP significant for RBC 3.92, Hg 11.9, Hct 36.6, Na 133, bicarb 21, glu 141, AST 62, ALT 46, alk phos 297. COVID, RSV, Flu neg. Trop < 0.012 x 2 with EKG showing sinus tachycardia rate of 124. CXR consistent with RML infiltrates/PNA. Patient is admitted for further workup and management. Started on Vancomycin, Azithromycin and Cefepime. ID and Pulmonary consulted. 11/17 Patient was seen and examined. Feeling fatigued. Continued cough and SOB. Tmax 103.1F over the past 24H. Antibiotics include Vancomycin dosed per pharmacy (D2), Cefepime 2g IV TID (D2) and Azithromycin (D2). CBC and CMP significant for WBC 1.66, RBC 3.37, Hg 10.2, Hct 32, Plt 136, Na 135, bicarb 21, glu 123, Ca 8.2, AST 56, ALT 39, alk phos 243, alb 3.4. CXR re-demonstrates RML PNA. Legionella Ag neg. 11/18 Patient was seen and examined. Breathing slightly better. Continued cough and SOB. Afebrile over the past 24H. Antibiotics include Vancomycin dosed per pharmacy (D3), Cefepime 2g IV TID (D3) and Azithromycin (D3). CBC and CMP significant for WBC 1.37, RBC 3.44, Hg 10.3, Hct 32.9, Cl 110, Cr 0.42, glu 107, Ca 8.1. BCx neg so far. Sputum Cx growing mod PMN and few gram + cocci. 11/19 Patient was seen and examined. Breathing slightly better. Reports a headache. Afebrile over the past 24H. MRSA screen was negative thus Vancomycin has been discontinued. Completed 3 days of Azithromycin. Maintained on Cefepime 2g IV TID (D4). CBC and CMP significant for RBC 3.42, Hg 10.2, Hct 33.9, MCV 99.1, Cl 108, Cr 0.39, Ca 8.2. BCx neg so far. Sputum Cx neg. CXR shows p ersistent RML infiltrate. General: no distress, appears at stated age Derm: warm, dry Head: atraumatic, normocephalic, symmetric Mouth: no lip lesion, mucus membranes moist Cardiovascular: good distal perfusion in all 4 extremities Lungs: breathing comfortably, no accessory muscle use Ext: no gross muscle atrophy, no edema, no contractures Neuro: No focal neurologic deficits. Psych: Alert and oriented. Based on my assessment of this patient, this patient meets a high complexity level of care. Sepsis secondary to PNA: Immunocompromised. Continue Cefepime 2g IV TID. MRSA screen was negative thus Vancomycin has been discontinued. Completed 3 days of Azithromycin. Obtain Pro-bridger. DuoNeb QID PRN SOB. Legionella Ag, sputum + BCx neg. Decrease LR from 100 to 50 cc/hr. Telemetry monitoring. Pulmonary and ID on board. Pancytopenia: In the setting of metastatic malignancy to the bone. Status post Neulasta on 11/18. Oncology on board. Chest pain likely due to above: ACS ruled out. Transaminitis: Likely due to liver mets. Monitor. Breast CA with metastatic disease to the liver and bone: Consult Oncology. DVT: Eliquis 5 mg PO BID. CODE STATUS: FULL CODE DVT Prophylaxis: Eliquis. GI Prophylaxis: Designated medical POA if patient is not able to make medical decisions for themselves: . I have reviewed the following sustainable design consultant notes: ID. I have reviewed the results of the following tests: CBC, BMP, BCx, Sputum Cx. I have ordered the following tests: Pro-bridger. I have discussed the care of this patient with the following independent historian: RN. I have independently interpreted the following test below: CXR. I have discussed the management of this patient with the following physician: Objective - Vital Signs Vital signs: Vital Signs Temp 98.0 F 11/19/24 07:43 Pulse 74 11/19/24 11:39 Resp 13 11/19/24 08:11 BP 97/58 11/19/24 11:58 Pulse Ox 97 11/19/24 07:47 FiO2 Intake & Output 11/18/24 11/19/24 11/19/24 18:59 06:59 18:59 Intake Total 1300 Balance 1300 Intake: Intake, IV Titration 1300 Amount Cefepime 2 gm In Dextrose 100 5% in Water 100 ml @ 25 mls/hr IVPB Q8H [facility] Rx#: [id number] Lactated Ringers 1,000 ml 700 @ 130 mls/hr IV .Q7H42M [facility] Rx#:[id number] Vancomycin 1,500 mg In 500 Sodium Chloride 0.9% 500 ml 500 ml @ 167 mls/hr IVPB Q8H [facility] Rx#: [id number] Other: Voiding Method Toilet Toilet Toilet # Voids 1 1 1 # Bowel Movements 0 1 - Labs CBC & Chem 7: 11/19/24 06:04 11/19/24 06:04 Labs: Abnormal Lab Results - Last 24 Hours (Table) 11/19/24 11/19/24 Range/Units 06:04 06:04 RBC 3.42 L (4.10-5.20) X 10*6/uL Hgb 10.2 L (12.0-15.0) g/dL Hct 33.9 L (37.2-46.3) % MCV 99.1 H (80.0-97.0) FL MCHC 30.1 L (32.0-37.0) g/dL RDW 14.6 H (11.5-14.5) % Immature Gran # 0.07 H (0.00-0.04) X 10*3/uL Chloride 108 H (98-107) mmol/L Creatinine 0.39 L (0.52-1.04) mg/dL Calcium 8.3 L (8.4-10.2) mg/dL Microbiology - Last 24 Hours (Table) 11/17/24 06:57 Gram Stain - Final Sputum Sputum Culture - Final 11/17/24 14:06 Nasal Screen MRSA/MSSA - Final Nasal Swab 11/16/24 06:08 Blood Culture - Preliminary Blood 11/16/24 05:53 Blood Culture - Preliminary Blood
[2024-11-19] MEDS: LORATADINE 10 MG TAB PO PRN (16:13)
--- NOTE | 2024-11-19 18:13 | P.PN ---
Subjective Progress Note Date: 11/19/24 No acute events overnight. Pt reporting feeling well. Tolerating oral intake, denies n/v/d. Remains afebrile x 48 hours. Blood cultures negative thus far. WBC improved to 7.0, ANC 5.0 Objective - Vital Signs Vital signs: Vital Signs Temp 98.0 F 11/19/24 07:43 Pulse 71 11/19/24 11:32 Resp 13 11/19/24 08:11 BP 97/59 11/19/24 07:43 Pulse Ox 97 11/19/24 07:47 FiO2 Intake & Output 11/18/24 11/19/24 11/19/24 18:59 06:59 18:59 Intake Total 1300 Balance 1300 Intake: Intake, IV Titration 1300 Amount Cefepime 2 gm In Dextrose 100 5% in Water 100 ml @ 25 mls/hr IVPB Q8H [facility] Rx#: [id number] Lactated Ringers 1,000 ml 700 @ 130 mls/hr IV .Q7H42M [facility] Rx#:[id number] Vancomycin 1,500 mg In 500 Sodium Chloride 0.9% 500 ml 500 ml @ 167 mls/hr IVPB Q8H [facility] Rx#: [id number] Other: Voiding Method Toilet Toilet Toilet # Voids 1 1 1 # Bowel Movements 0 1 - Constitutional General appearance: Present: average body habitus, no acute distress - EENT Eyes: Present: anicteric sclerae, EOMI ENT: Present: hearing grossly normal - Respiratory Details: breathing is even and unlabored - Cardiovascular Details: skin warm and dry - Gastrointestinal General gastrointestinal: Present: soft. Absent: tenderness - Integumentary Integumentary: Absent: cyanotic, jaundiced - Neurologic Neurologic: Present: CNII-XII intact - Musculoskeletal Musculoskeletal: Present: strength equal bilaterally - Psychiatric Psychiatric: Present: A&O x's 3 - Labs CBC & Chem 7: 11/19/24 06:04 11/19/24 06:04 Labs: Abnormal Lab Results - Last 24 Hours (Table) 11/19/24 11/19/24 Range/Units 06:04 06:04 RBC 3.42 L (4.10-5.20) X 10*6/uL Hgb 10.2 L (12.0-15.0) g/dL Hct 33.9 L (37.2-46.3) % MCV 99.1 H (80.0-97.0) FL MCHC 30.1 L (32.0-37.0) g/dL RDW 14.6 H (11.5-14.5) % Immature Gran # 0.07 H (0.00-0.04) X 10*3/uL Chloride 108 H (98-107) mmol/L Creatinine 0.39 L (0.52-1.04) mg/dL Calcium 8.3 L (8.4-10.2) mg/dL Microbiology - Last 24 Hours (Table) 11/17/24 06:57 Gram Stain - Final Sputum Sputum Culture - Final 11/17/24 14:06 Nasal Screen MRSA/MSSA - Final Nasal Swab 11/16/24 06:08 Blood Culture - Preliminary Blood 11/16/24 05:53 Blood Culture - Preliminary Blood Assessment and Plan (1) Leukopenia due to antineoplastic chemotherapy Current Visit: Yes Status: Acute Priority: High Code(s): D70.1 - AGRANULOCYTOSIS SECONDARY TO CANCER CHEMOTHERAPY; T45.1X5A - ADVERSE EFFECT OF ANTINEOPLASTIC AND IMMUNOSUP DRUGS, INIT SNOMED Code(s): 387646244 (2) Fever Current Visit: Yes Status: Acute Priority: High Code(s): R50.9 - FEVER, UNSPECIFIED SNOMED Code(s): 644098701 (3) Pneumonia Current Visit: Yes Status: Acute Priority: High Code(s): J18.9 - PNEUMONIA, UNSPECIFIED ORGANISM SNOMED Code(s): 257416335 (4) Metastatic adenocarcinoma to breast Current Visit: Yes Status: Chronic Priority: Medium Code(s): C79.81 - SECONDARY MALIGNANT NEOPLASM OF BREAST SNOMED Code(s): 381111709578930 Plan: Fever, pneumonia: Presented with fevers, was started on Levaquin by her oncologist. -CXR concenring for pneumonia. Continues IV abx -BC negative thus far. Sputum culture negative -No fevers x 48 hours -ID and pulm following Chemo induced leukopenia: -WBC 1.37, hemoglobin 10.3, platelets 153,000. No differential ordered -G-CSF last given 3 weeks ago, was due for dose this week after her treatment. -G-CSF started with goal of ANC > 1,000 -Today WBC improved to 7.0, ANC 5.0. G-CSF d/c -Continue to monitor CBC Metastatic breast cancer: -Treated at [facility] with Dr. Gould. She has been on treatment with monoclonal antibody Sacituzumab, receiving last dose last -Patient states recent scans had showed progression of malignancy in bone and liver. Completed 5 fractions of RT to the liver 3 weeks ago. Plan for now is to continue Trodelvy and to eventually transition to Enhertu. -Treatment on hold until her acute symptoms resolve. She will resume follow-up with her primary oncologist upon discharge for further management Doctor attests: I performed a history and physical examination of this patient, developed impression and plan of care. Discussed with dictator. I agree with dictators note, documented as a scribe.
[2024-11-19] MEDS: KETOROLAC 15 MG/ML 1 ML VIAL IVP PRN (21:51)
[2024-11-20 07:50] VITALS: BP 105/63; RESP 18; TEMP 98.2
[2024-11-20 08:29] VITALS: PULSE 75
--- NOTE | 2024-11-20 09:18 | XR ---
EXAMINATION TYPE: XR chest 1V portable DATE OF EXAM: 11/20/2024 CLINICAL INDICATION: Female, 44 years old with history of pna, progress study. TECHNIQUE: Single AP portable upright view of the chest is obtained. COMPARISON: Chest x-ray from one day earlier FINDINGS: Stable right internal jugular Mediport catheter. There is mild cardiomegaly. No new suspicious focal airspace opacity, pleural effusion, or pneumothor ax seen bilaterally. Surgical clips in the left axillary are redemonstrated. Osseous structures are i ntact. Surgical clips overlying the medial right breast are redemonstrated. IMPRESSION: Chronic changes and mild cardiomegaly without suspicious new acute pulmonary process [facility], , 11/20/2024 9:16 AM
--- NOTE | 2024-11-20 10:25 | P.DS ---
Providers Date of admission: 11/16/24 07:25 Expected date of discharge: 11/20/24 Attending physician: Rosio Keys MD Consults: 11/16/24 13:11 Consult Physician Routine Consulting Provider: Barbara Rodriguez Consult Reason/Comments: PNA Do you want consulting provider notified?: Yes 11/16/24 13:56 Consult Physician Routine Consulting Provider: Lauri Soto Consult Reason/Comments: sepsis PNA Do you want consulting provider notified?: Yes 11/17/24 11:23 Consult Physician Routine Consulting Provider: Lew Vázquez Consult Reason/Comments: Breast CA with mets, leukopenia Do you want consulting provider notified?: Yes Primary care physician: [facility] Course: 44 year old F with PMH of breast CA with metastatic disease to the liver and bone, DVT presents to the ED for wet cough, fever as high as 102.5F, pressure like chest pain and shortness of breath since Friday. She was instructed to take Levaquin by her Oncologist at [facility] but symptoms persisted which prompted her to come to the ED. In the ED she underwent extensive evaluation. Tmax 100.3F, BP 106/71, HR 132, RR 18, 92% on RA. CBC, Coag panel, CMP significant for RBC 3.92, Hg 11.9, Hct 36.6, Na 133, bicarb 21, glu 141, AST 62, ALT 46, alk phos 297. COVID, RSV, Flu neg. Trop < 0.012 x 2 with EKG showing sinus tachycardia rate of 124. CXR consistent with RML infiltrates/PNA. Patient is admitted for further workup and management. Started on Vancomycin, Azithromycin and Cefepime. ID and Pulmonary consulted. MRSA screen was negative thus Vancomycin has been discontinued. BCx neg. Sputum Cx neg. 11/20 Patient was seen and examined. Breathing better. Wants to go home. Afebrile over the past 24H. Completed 3 days of Azithromycin. Maintained on Cefepime 2g IV TID (D5). No new labs done today. Discharge Plan: Discussed with ADE Dennis for discharge on Ceftin x 7 days. Follow up with PCP within 1-[address] Rodriguez within 1 week of discharge. General: no distress, appears at stated age Derm: warm, dry Head: atraumatic, normocephalic, symmetric Mouth: no lip lesion, mucus membranes moist Cardiovascular: Normal S1 S2. No murmurs Lungs: Clear to auscultation bilaterally, no accessory muscle use Ext: no gross muscle atrophy, no edema, no contractures Neuro: No focal neurologic deficits. Psych: Alert and oriented. Discharge Diagnosis: Sepsis secondary to PNA Pancytopenia Chest pain likely due to above Transaminitis Breast CA with metastatic disease to the liver and bone DVT This complex discharge took 35 minutes to complete. Patient Condition at Discharge: Stable Plan - Discharge Summary New Discharge Prescriptions: New cefuroxime axetiL [Ceftin] 500 mg PO BID #14 tab polyethylene glycoL 3350 [Miralax] 17 gm PO DAILY PRN packet PRN Reason: Constipation guaiFENesin [Mucinex] 1,200 mg PO Q12HR tab Acetaminophen Tab [Tylenol] 650 mg PO Q4HR PRN tab PRN Reason: Fever and/ or Mild Pain Continue Ondansetron Odt [Zofran ODT] 8 mg PO Q6H PRN PRN Reason: Nausea And Vomiting Temazepam 22.5 mg PO HS Apixaban [Eliquis] 5 mg PO BID FLUoxetine HCL [Sarafem] 60 mg PO HS LORazepam [Ativan] 1 mg PO Q6H PRN PRN Reason: Nausea Mirtazapine 30 mg PO HS Prochlorperazine [Compazine] 10 mg PO Q6H PRN PRN Reason: Nausea fentaNYL 100MCG/HR PATCH [Duragesic 100MCG/HR] 1 patch TRANSDERM Q72H OLANZapine [ZyPREXA] 7.5 mg PO DIRECTED fentaNYL 25MCG/HR PATCH [Duragesic 25MCG/HR] 1 patch TRANSDERM Q72H Pegfilgrastim [Neulasta] 6 mg SQ Q21D oxyBUTYnin chloride [Ditropan] 5 mg PO BID HYDROmorphone HCL [Dilaudid] 8 mg PO Q4H Discontinued Levofloxacin [Levaquin] 250 mg PO BID Discharge Medication List Apixaban [Eliquis] 5 mg PO BID 09/07/23 [History] FLUoxetine HCL [Sarafem] 60 mg PO HS 09/07/23 [History] Ondansetron Odt [Zofran ODT] 8 mg PO Q6H PRN 09/07/23 [History] Temazepam 22.5 mg PO HS 09/07/23 [History] fentaNYL 25MCG/HR PATCH [Duragesic 25MCG/HR] 1 patch TRANSDERM Q72H 09/07/23 [History] LORazepam [Ativan] 1 mg PO Q6H PRN 06/16/24 [History] Mirtazapine 30 mg PO HS 06/16/24 [History] Pegfilgrastim [Neulasta] 6 mg SQ Q21D 06/16/24 [History] HYDROmorphone HCL [Dilaudid] 8 mg PO Q4H 11/16/24 [History] OLANZapine [ZyPREXA] 7.5 mg PO DIRECTED 11/16/24 [History] Prochlorperazine [Compazine] 10 mg PO Q6H PRN 11/16/24 [History] fentaNYL 100MCG/HR PATCH [Duragesic 100MCG/HR] 1 patch TRANSDERM Q72H 11/16/24 [History] oxyBUTYnin chloride [Ditropan] 5 mg PO BID 11/16/24 [History] Acetaminophen Tab [Tylenol] 650 mg PO Q4HR PRN tab 11/20/24 [Rx] cefuroxime axetiL [Ceftin] 500 mg PO BID #14 tab 11/20/24 [Rx] guaiFENesin [Mucinex] 1,200 mg PO Q12HR tab 11/20/24 [Rx] polyethylene glycoL 3350 [Miralax] 17 gm PO DAILY PRN packet 11/20/24 [Rx] Follow up Appointment(s)/Referral(s): Barbara Rodriguez MD [STAFF PHYSICIAN] - 1 Week Prince Simmons MD [Primary Care Provider] - 1-2 days Discharge Disposition: HOME SELF-CARE
[2024-11-20] MEDS ORDERED: VANCOMYCIN TROUGH DUE 1 EACH MISC MISCELLANE ONE (11:00)
--- NOTE | 2024-11-20 12:49 | P.PN ---
Subjective Progress Note Date: 11/20/24 Patient is a 44-year-old female with past medical history significant for stage IV breast cancer, with metastasis to liver and bone. Currently, undergoing systemic chemotherapy and her last treatment was on of last week. Follows with an oncologist out of the [facility][1]. Of note, recently hospitalized May, for pneumonia. Chest CT angio done at that time showing multifocal patchy groundglass and consolidative opacities favoring multifocal pneumoni versus inflammatory process. Patient presents back to the emergency department yesterday morning with a chief complaint of 2 days of high fevers, cough, and shortness of breath. Previously, started on Levaquin on outpatient basis by her oncologist. Workup in the emergency department including a chest xray showing patchy perihilar infiltrates with somewhat of a nodular component of the right medial lung base. Most recent labs from this morning including a CBC with a WBC count 1.67, hemoglobin 10.2, platelets 136. CMP: Sodium 135, potassium 3.7, chloride 106, serum bicarb 21, BUN 10, creatinine 0.52, glucose 123. Lactic 1.3. Normal saline infusing at 75 mL/h. LFTs mildly elevated. Troponins less than 0.012 x 2. Urinalysis unremarkable for infection. Viral screen negative for influenza A/B, RSV, COVID. Patient currently being evaluated on the fifth floor. She is resting comfortably on 2 L/min nasal cannula. Does not appear in any distress. Continues to have intermittent fevers throughout the night, treated with Tylenol as needed.. She had a Tmax of 103.1 F. Denies sick contacts or recent travel. Endorses a minimally productive cough with occasional white sputum production. Denies hemoptysis. Denies nausea, vomiting, diarrhea, abdominal pain. Is covered on broad-spectrum antibiotics in the form of azithromycin, cefepime, and vancomycin. Vital signs are stable. The patient is seen today November 18, 2024 in follow-up on the regular medical floor. She is currently sitting up in bed. Awake and alert in no acute distress. Feeling a bit better today compared to yesterday. Still with a loose nonproductive cough. Maintaining good O2 saturations in the 90s on room air. White count 1.37. Hemoglobin 10.3. Platelets 153. Sodium 139. Potassium 3.9. Bicarb 22. BUN 8. Creatinine 0.42. Glucose 107. She remains on cefepime and vancomycin. Continued on bronchodilators as needed. Mucinex. Anticoagulated with Eliquis. Fentanyl patch for pain control. Continued on Zarxio. The patient is seen today November 19, 2024 in follow-up on the regular medical floor. She is awake and alert in no acute distress. Breathing a bit better today compared to yesterday. She is maintaining good O2 saturations in the 90s on room air. She has been afebrile. Hemodynamically stable. Follow-up chest x- ray shows persistent density in the right medial lung base, atelectasis versus infiltrate. Sputum culture revealed no growth. Blood culture revealed no growth. White count 7.0. Hemoglobin 10.2. Platelets 165. Sodium 139. Potassium 3.9. Bicarb 22. BUN 7. Creatinine 0.39. Glucose 86. She remains on DuoNeb inhalations. Antibiotics in the form of cefepime and vancomycin. Lactated Ringer's at 130 mL/h. Anticoagulated with Eliquis. The patient is seen today November 20, 2024 in follow-up on the regular medical floor. She is currently sitting up at the bedside. Awake and alert in no acute distress. Denies any worsening shortness of breath, cough or congestion. M aintaining good O2 saturations in the 90s on room air oxygen. Blood cultures revealed no growth. Sputum culture revealed no growth. No new labs today. She remains on DuoNeb inhalations. Continued on cefepime. Anticoagulated with Eliquis. Pain is well-controlled. Chest x-ray reveals chronic changes and mild cardiomegaly without suspicious new acute pulmonary process. Objective - Vital Signs Vital signs: Vital Signs Temp 98.2 F 11/20/24 07:49 Pulse 75 11/20/24 08:28 Resp 18 11/20/24 07:49 BP 105/63 11/20/24 07:49 Pulse Ox 93 L 11/20/24 07:49 FiO2 Intake & Output 11/19/24 11/20/24 11/20/24 18:59 06:59 18:59 Intake Total 1096 300 Balance 1096 300 Intake: Intake, IV Titration 300 Amount Cefepime 2 gm In Dextrose 100 5% in Water 100 ml @ 25 mls/hr IVPB Q8H [facility] Rx#: [id number] Lactated Ringers 1,000 ml 200 @ 50 mls/hr IV .Q20H [facility] Rx#:[id number] Oral 1096 Other: Voiding Method Toilet Toilet Toilet # Voids 1 3 # Bowel Movements 1 - Exam GENERAL EXAM: Alert, active 44-year-old female, on room air oxygen, sitting up in bed, in no apparent distress. HEAD: Normocephalic. EYES: Normal reaction of pupils, equal size. NOSE: Clear with pink turbinates. THROAT: No erythema or exudates. NECK: No masses, no JVD. CHEST: No chest wall deformity. LUNGS: Equal air entry with bilateral scattered rhonchi. CVS: S1 and S2 normal with no audible murmur, regular rhythm. ABDOMEN: No hepatosplenomegaly, normal bowel sounds, no guarding or rigidity. SPINE: No scoliosis or deformity SKIN: No rashes CENTRAL NERVOUS SYSTEM: No focal deficits, tone is normal in all 4 extremities. EXTREMITIES: There is no peripheral edema. No clubbing, no cyanosis. Periphe ral pulses are intact. - Labs CBC & Chem 7: 11/19/24 06:04 11/19/24 06:04 Labs: Microbiology - Last 24 Hours (Table) 11/16/24 06:08 Blood Culture - Preliminary Blood 11/16/24 05:53 Blood Culture - Preliminary Blood 11/17/24 06:57 Gram Stain - Final Sputum Sputum Culture - Final Assessment and Plan Assessment: Right lung community-acquired pneumonia, chest x-ray showing patchy perihilar infiltrates with somewhat of a nodular component of the right medial lung base. Acute hypoxemic respiratory failure, secondary to above, recovered and currently on room air oxygen Stage IV breast cancer with metastasis to liver and bone, currently undergoing systemic chemotherapy, last treatment on Pancytopenia Acute febrile illness History of DVT, anticoagulated on Eliquis Plan: The patient was seen and evaluated Chest x-ray, labs and medications reviewed Stable and on room air oxygen Remains on cefepime Blood and sputum cultures revealed no growth Anticoagulated with Eliquis Continue adequate pain control Anxious to go home Antibiotics per ID service Cleared from pulmonary standpoint Follow-up in our office in 1 week I have personally seen and examined the patient, performed the documentation and the assessment and plan as written. Number of minutes spent on the visit: 10 Dictation was produced using [employer] dictation software. Please excuse any grammatical, word or spelling errors.
--- NOTE | 2024-11-22 22:06 | P.PN ---
Subjective Progress Note Date: 11/20/24 Principal diagnosis: Reason for follow-up is pneumonia Patient is a 44-year-old female with a past medical history significant for metastatic breast cancer on chemotherapy with the last chemo on a week before presentation to the hospital presenting with increasing shortness of breath and cough failing outpatient oral Levaquin therapy being admitted to hospital with pneumonia. On today's evaluation that is 11/20/2024, patient has been afebrile, patient is breathing comfortably and is currently on room air, patient denies having any chest pain and cough has decreased in intensity, patient denies nausea vomiting or diarrhea and no abdominal pain. Patient white count is 7.08 creatinine 0.39 sputum culture has been negative Objective - Vital Signs Vital signs: Vital Signs Temp 98.1 F 11/20/24 00:36 Pulse 93 11/20/24 00:36 Resp 16 11/20/24 00:36 BP 105/56 11/20/24 00:36 Pulse Ox 93 L 11/20/24 00:36 FiO2 Intake & Output 11/19/24 11/19/24 11/20/24 06:59 18:59 06:59 Intake Total 1300 1096 Balance 1300 1096 Intake: Intake, IV Titration 1300 Amount Cefepime 2 gm In Dextrose 100 5% in Water 100 ml @ 25 mls/hr IVPB Q8H [facility] Rx#: [id number] Lactated Ringers 1,000 ml 700 @ 50 mls/hr IV .Q20H [facility] Rx#:[id number] Vancomycin 1,500 mg In 500 Sodium Chloride 0.9% 500 ml 500 ml @ 167 mls/hr IVPB Q8H [facility] Rx#: [id number] Oral 1096 Other: Voiding Method Toilet Toilet Toilet # Voids 1 1 3 # Bowel Movements 1 - Exam GENERAL DESCRIPTION: Middle-age female lying in bed in no distress RESPIRATORY SYSTEM: Unlabored breathing , decreased breath sounds at bases HEART: S1 S2 regular rate and rhythm , ABDOMEN: Soft , no tenderness EXTREMITIES: No edema feet - Labs CBC & Chem 7: 11/19/24 06:04 11/19/24 06:04 Labs: Abnormal Lab Results - Last 24 Hours (Table) 11/19/24 11/19/24 Range/Units 06:04 06:04 RBC 3.42 L (4.10-5.20) X 10*6/uL Hgb 10.2 L (12.0-15.0) g/dL Hct 33.9 L (37.2-46.3) % MCV 99.1 H (80.0-97.0) FL MCHC 30.1 L (32.0-37.0) g/dL RDW 14.6 H (11.5-14.5) % Immature Gran # 0.07 H (0.00-0.04) X 10*3/uL Chloride 108 H (98-107) mmol/L Creatinine 0.39 L (0.52-1.04) mg/dL Calcium 8.3 L (8.4-10.2) mg/dL Microbiology - Last 24 Hours (Table) 11/16/24 06:08 Blood Culture - Preliminary Blood 11/16/24 05:53 Blood Culture - Preliminary Blood 11/17/24 06:57 Gram Stain - Final Sputum Sputum Culture - Final Assessment and Plan (1) Failure of outpatient treatment Status: Acute Code(s): Z78.9 - OTHER SPECIFIED HEALTH STATUS SNOMED Code(s): 394259218 (2) Pneumonia Status: Acute Priority: High Code(s): J18.9 - PNEUMONIA, UNSPECIFIED ORGANISM SNOMED Code(s): 134227726 (3) Sepsis Status: Acute Code(s): A41.9 - SEPSIS, UNSPECIFIED ORGANISM SNOMED Code(s): 12619174 Plan: 1patient presented to hospital with sepsis in this patient who did have fever tachycardia meeting criteria for SIRS/sepsis source is pneumonia failing outpatient oral Levaquin therapy in this patient with a history of metastatic breast cancer on chemotherapy/immunocompromise, will need to cover for resistant gram-positive and gram-negative pathogen 2blood and sputum cultures so far pending, urine for Legionella antigen negative, MRSA nasal screen is negative 3patient did have resolution of her fever and white has normalized, negative MRSA screen and sputum has been negative for any resistant pathogen she will finish therapy with oral Ceftin on discharge discussed with the admitting physician Dictation was produced using [employer] dictation software. please excuse any grammatical, word or spelling errors. Time with Patient: Less than 30
== END 2024-11-20 13:25 | disposition home or self-care (01) | DRG 871 ==
LOC: EC 05:27 → 5NMEDONC 07:25
PROVIDERS: ADMIT Internal Medicine; ATTEND Internal Medicine
DX: A41.9 Sepsis, unspecified organism (principal); D61.810 Antineoplastic chemotherapy induced pancytopenia; J18.9 Pneumonia, unspecified organism; J96.01 Acute respiratory failure with hypoxia; C79.51 Secondary malignant neoplasm of bone; C78.7 Secondary malignant neoplasm of liver and intrahepatic bile duct; C79.81 Secondary malignant neoplasm of breast; D70.1 Agranulocytosis secondary to cancer chemotherapy; C50.919 Malignant neoplasm of unspecified site of unspecified female breast; D63.0 Anemia in neoplastic disease; D84.821 Immunodeficiency due to drugs; T45.1X5A Adverse effect of antineoplastic and immunosuppressive drugs, initial encounter; R74.01 Elevation of levels of liver transaminase levels; Z79.01 Long term (current) use of anticoagulants; Z86.718 Personal history of other venous thrombosis and embolism; Z90.13 Acquired absence of bilateral breasts and nipples; Z79.899 Other long term (current) drug therapy; Z90.49 Acquired absence of other specified parts of digestive tract; Z90.710 Acquired absence of both cervix and uterus; Z17.421 Hormone receptor negative with human epidermal growth factor receptor 2 negative status
CPT/HCPCS: 36415; 71045; 71046; 80048; 80053; 80202; 81003; 82565; 83605; 84145; 84484; 85025; 85027; 85610; 85730; 87040; 87070; 87205; 87449; 87636; 93005; 94640; 94760; 96361; 96365; 96366; 96367; 96368; 96375; 99291